=== PATIENT | female | born 1945 | race Hispanic/Latino ===

== ENCOUNTER 2018-01-25 21:29 | Inpatient (IN) | payer OTHER ==
--- OUTSIDE RECORDS SUMMARY | 2018-01-25 21:31 | XMS REPORT | Clinical Summary ---
:1945 Author Organization [facility] Address [address] [place] [address] Care Team Providers Name Role Phone Olivier Dent MD Primary Care Provider Allergies Active Allergy Reactions Severity Noted Date Comments Morphine Other (See Comments) 12/21/2015 Hallucinations; 'very aggressive' Medications Medication Sig Dispensed Refills Start Date End Date Status omeprazole (PriLOSEC) Take 20 mg by 0 Active 20 MG capsule mouth daily. losartan (COZAAR) 25 MG Take 25 mg by 0 Active tablet mouth every morning. carvedilol (COREG) 25 Take 25 mg by 0 Active MG tablet mouth 2 (two) times a day. citalopram (CeleXA) 20 Take 20 mg by 0 Active MG tablet mouth every morning. doxepin (SINEquan) 10 Take 10 mg by 0 Active MG capsule mouth nightly as needed for sleep. acetaminophen (TYLENOL) Take 325 mg by 0 Active 325 MG tablet mouth every 6 (six) hours as needed for mild pain. psyllium seed, sugar, Take 1 Dose by 0 Active (METAMUCIL, SUGAR,) mouth daily. 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 Last Filed Vital Signs Not on file Plan of Treatment Health Maintenance Due Date Last Done Comments BREAST CANCER SCREENING 1994 SHINGRIX VACCINE (1 of 2) 1994 ZOSTER VACCINE 2004 PNEUMOCOCCAL POLYSACCHARIDE VACCINE AGE 65 AND OVER 2009 INFLUENZA VACCINE 09/19/2017 COLON CANCER SCREENING 10/05/2024 10/05/2014 PNEUMOCOCCAL-13 Completed 2015 Procedures Procedure Name Priority Date/Time Associated Diagnosis Comments TRANSFUSE RED BLOOD Routine 10/24/2017 5:25 PM CDT CELLS TRANSFUSE RED BLOOD Routine 10/24/2017 5:25 PM CDT CELLS after 01/24/2017 Results Transfuse RBC (10/24/2017 5:25 PM CDT)Only the most recent of2 resultswithin the time period is included.after 01/24/2017 Insurance Payer Benefit Plan / Group Subscriber ID Type Phone Address MEDICARE MEDICARE PART A AND B xxxxxxxxxx Medicare [place], [place] AETNA [facility] INS CO OF xxxxxxxxxx [id number]
[2018-01-25] MEDS ORDERED: ONDANSETRON 4 MG/2 ML VIAL ONE (23:26)
[2018-01-25] MEDS ORDERED: FENTANYL CITR 100 MCG/2 ML ONE (23:26)
[2018-01-25] MEDS ORDERED: PANTOPRAZOLE 40 MG INJ ONE (23:26)
[2018-01-25] MEDS ORDERED: NA CHLORIDE 0.9% 1,000 ML ONE (23:26)
[2018-01-25 23:35] LABS: Urine Blood 2+ (NEG); Urine Glucose NEGATIVE (NEG); Urine Protein 2+ (NEG); Urine Specific Gravity 1.025 (1.005-1.030)
[2018-01-25 23:53] LABS: Absolute Lymphocytes (CBC) 1.5 K/uL (0.7-4.9); Absolute Monocytes 0.4 K/uL (0.1-1.3); Absolute Neutrophil 5.7 K/uL (1.8-8.0); Basophils % 0.3 % (0-1.3); Eosinophils % 0.2 % (0-4.4); Hematocrit 38.2 % (36.0-45.0); Lymphocytes % 19.8 % (15.3-44.8); MCH 28.3 pg (27.0-35.0); MCV 84.6 fL (80-100); Monocytes % 4.6 % (3.3-12.3); RBC Red Blood Cell Count 4.51 M/uL (3.86-4.86)
[2018-01-25 23:56] LABS: Urine Bacteria <20 /HPF (<20); Urine Culture Reflex Order REFLEXED
[2018-01-26 00:02] LABS: Albumin 3.6 g/dL (3.4-5.0); Bilirubin Direct 0.2 mg/dL (0-0.2); Bilirubin Total 0.6 mg/dL (0.2-1.0); Magnesium 2.1 mg/dL (1.8-2.4); Potassium 3.5 mmol/L (3.5-5.1); Protein, Total 7.5 g/dL (6.4-8.2); Troponin I 0.03 ng/mL (0.0-0.045)
[2018-01-26] MEDS ORDERED: CIPROFLOXACIN 400mg IV 400 MG/200 ML BAG IV ONE (01:54)
[2018-01-26] MEDS ORDERED: METRONIDAZOLE 500mg IVPB 500 MG/100 ML BAG IV ONE (01:54)
--- NOTE | 2018-01-26 02:39 | ER ---
Nurse's Notes [facility] Name: Mireya Pike Age: 72 yrs Sex: Female : 1945 Arrival Date: 01/25/2018 Time: 21:32 Bed 19 Private MD: Diagnosis: Small bowel obstruction;Nausea and vomiting Presentation: 01/25 21:34 Presenting complaint: Child states: RLQ abdominal pain, vomiting since this morning. aj1 Patient's daughter states "She has a history of intestine rupture, she got well, kept getting blockages. Eventually they had to put a bag on her, but then after a year everything healed inside and they reversed it. Every now and again she gets that blockage though" Patient states that the pain feels the same as her previous obstructions. Transition of care: patient was not received from another setting of care. Onset of symptoms was January 25, 2018. Risk Assessment: Do you want to hurt yourself or someone else? Patient reports no desire to harm self or others. Initial Sepsis Screen: Does the patient meet any 2 criteria? No. Patient's initial sepsis screen is negative. Does the patient have a suspected source of infection? Yes: Acute abdominal pain. Care prior to arrival: None. 21:34 Method Of Arrival: Wheelchair aj1 21:34 Acuity: TERESE 3 aj1 Triage Assessment: 21:43 General: Appears in no apparent distress. uncomfortable, Behavior is calm, cooperative, aj1 appropriate for age. Pain: Complains of pain in abdomen Pain currently is 8 out of 10 on a pain scale. Neuro: Level of Consciousness is awake, alert, obeys commands. Cardiovascular: Patient's skin is warm and dry. Respiratory: Airway is patent Respiratory effort is even, unlabored, Respiratory pattern is regular, symmetrical. GI: Reports lower abdominal pain. Historical: - Allergies: 21:43 Morphine; aj1 - Home Meds: 21:43 Breo Ellipta 200-25 mcg/dose inhalation dsdv 1 puff once daily [Active]; omeprazole 20 aj1 mg Oral cpDR 1 cap once daily [Active]; carvedilol 25 mg Oral tab 1 tab 2 times per day [Active]; losartan 25 mg Oral tab 1 tab once daily [Active]; Myrbetriq 25 mg Oral Tb24 1 tab once daily [Active]; Albuterol Inhl [Active]; Xarelto 15 mg oral tab daily [Active]; - PMHx: 21:43 Anxiety; Arthritis; GERD; High Cholesterol; Hypertension; incontinence; bowel aj1 obstruction; - PSHx: 21:43 Colostomy; colostomy reversal; bladder mesh removal; Hernia repair; Hysterectomy; aj1 - Immunization history:: Flu vaccine is up to date. - Social history:: Smoking status: Patient/guardian denies using tobacco. - Ebola Screening: : Patient denies travel to an Ebola-affected area in the 21 days before illness onset. Screenin:54 Abuse screen: Denies threats or abuse. Nutritional screening: No deficits noted. jd3 Tuberculosis screening: No symptoms or risk factors identified. Fall Risk Ambulatory Aid- None/Bed Rest/Nurse Assist (0 pts). Gait- Normal/Bed Rest/Wheelchair (0 pts) Mental Status- Oriented to own ability (0 pts). Total Hinson Fall Scale indicates No Risk (0-24 pts). Assessment: 21:55 General: Appears in no apparent distress. uncomfortable, Behavior is calm, cooperative, jd3 appropriate for age. Pain: Complains of pain in left lower quadrant Quality of pain is described as sharp, tender. Neuro: Level of Consciousness is awake, alert, obeys commands, Oriented to person, place, time, situation, Appropriate for age. Cardiovascular: Capillary refill < 3 seconds Patient's skin is warm and dry. Respiratory: Airway is patent Respiratory effort is even, unlabored, Respiratory pattern is regular, symmetrical. GI: Abdomen is round Bowel sounds present in right upper quadrant, left upper quadrant and right lower quadrant hypoactive in left lower quadrant Abd is soft Abdomen is tender to palpation in left lower quadrant Reports nausea, vomiting. : No signs and/or symptoms were reported regarding the genitourinary system. EENT: No signs and/or symptoms were reported regarding the EENT system. Derm: Skin is intact, Skin is dry, Skin is normal, Skin temperature is warm. Musculoskeletal: Circulation, motion, and sensation intact. Range of motion: intact in all extremities. 23:28 Reassessment: Patient appears in no apparent distress at this time. Patient and/or jd3 family updated on plan of care and expected duration. Pain level reassessed. Patient is alert, oriented x 3, equal unlabored respirations, skin warm/dry/pink. 12/08 00:42 Reassessment: Patient appears in no apparent distress at this time. Patient and/or jd3 family updated on plan of care and expected duration. Pain level reassessed. Patient is alert, oriented x 3, equal unlabored respirations, skin warm/dry/pink. 01:30 Reassessment: Patient appears in no apparent distress at this time. Patient and/or jd3 family updated on plan of care and expected duration. Pain level reassessed. Patient is alert, oriented x 3, equal unlabored respirations, skin warm/dry/pink. 02:16 Reassessment: Shanae leyva- [phone]. Reassessment: Patient appears jd3 in no apparent distress at this time. Patient and/or family updated on plan of care and expected duration. Pain level reassessed. Patient is alert, oriented x 3, equal unlabored respirations, skin warm/dry/pink. Vital Signs: 01/25 21:43 BP 160 / 73; Pulse 81; Resp 18; Temp 97.3(TE); Pulse Ox 97% on R/A; Weight 80.74 kg aj1 (R); Height 5 ft. 0 in. (152.40 cm) (R); 23:28 BP 164 / 72; Pulse 64; Resp 18 S; Pulse Ox 96% on R/A; jd3 01/26 00:43 BP 136 / 79; Pulse 67; Resp 18 S; Pulse Ox 98% on R/A; Pain 0/10; jd3 02:17 Pulse 66; Resp 18 S; Pulse Ox 98% on R/A; jd3 03:44 BP 138 / 82; Pulse 66; Resp 18 S; Pulse Ox 96% on R/A; jd3 01/25 21:43 Body Mass Index 34.76 (80.74 kg, 152.40 cm) aj1 ED Course: 01/25 21:32 Patient arrived in ED. ag3 21:36 Triage completed. aj1 21:43 Arm band placed on Patient placed in an exam room. aj1 21:54 Martell Casas, RN is Primary Nurse. jd3 21:57 Patient has correct armband on for positive identification. Bed in low position. Call [facility] light in reach. Side rails up X 1. Adult w/ patient. 22:22 Luc Rose PA is PHCP. cp 22:23 Rosales Dsouza MD is Attending Physician. cp 23:00 Urine collected: clean catch specimen, clear, mj colored, Amount Voided: 60mL. jp3 23:15 Inserted saline lock: 20 gauge in right upper arm, using aseptic technique. Blood jp3 collected. 23:15 Initial lab(s) drawn, by me, sent to lab. jp3 23:20 X-ray completed. Portable x-ray completed in exam room. Patient tolerated procedure sg4 well. 23:22 XRAY Chest (1 view) In Process Unspecified. EDMS 23:25 Urine Microscopic Only Sent. jp3 23:25 Magnesium Sent. jp3 23:25 Basic Metabolic Panel Sent. jp3 23:25 CBC with Diff Sent. jp3 23:25 Creatinine for Radiology Sent. jp3 23:25 Lipase Sent. jp3 23:25 Hepatic Function Sent. jp3 23:32 EKG done, by ED staff, reviewed by Luc ADAM. jp3 12 00:[address] via stretcher. kw1 00:39 CT Abd/Pelvis - W/Contrast In Process Unspecified. EDMS 00:40 CT completed. Patient tolerated procedure well. Patient moved back from CT. kw1 02:15 No provider procedures requiring assistance completed. NGT: inserted 16 Fr. via right jd3 nare. verified placement of air over stomach, verified return of gastric contents, to intermittent suction. Returned gastric contents. Patient tolerated well. 02:35 Olivier Dent MD is Hospitalizing Provider. cp 03:42 Patient admitted, IV remains in place. jd3 Administered Medications: 01/25 23:26 Drug: NS 0.9% 1000 ml Route: IV; Rate: 75 ml/hr; Site: right upper arm; jd3 01/26 03:43 Follow up: Response: No adverse reaction; IV Status: Infusion continued upon admission jd3 01/25 23:27 Drug: Zofran 4 mg Route: IVP; Site: right upper arm; jd3 01/26 01:48 Follow up: Response: No adverse reaction jd3 01/25 23:27 Drug: ProTONIX 40 mg Route: IVP; Site: right upper arm; jd3 01/26 01:48 Follow up: Response: No adverse reaction jd3 01/25 23:27 Drug: fentaNYL (PF) 50 mcg Route: IVP; Site: right upper arm; jd3 01/26 01:47 Follow up: Response: No adverse reaction; Pain is decreased jd3 02:14 Drug: metroNIDAZOLE 500 mg Volume: 100 ml; Route: IVPB; Infused Over: 30 mins; Site: j right upper arm; 03:43 Follow up: Response: No adverse reaction; IV Status: Completed infusion jd3 02:15 Drug: Cipro 400 mg Volume: 200 ml; Route: IVPB; Infused Over: 60 mins; Site: right jd3 upper arm; 03:43 Follow up: Response: No adverse reaction; IV Status: Completed infusion jd3 Output: 01:47 Urine: NaNml; Total: NaNml. jd3 Outcome: 02:38 Decision to Hospitalize by Provider. cp 03:42 Admitted to Med/surg accompanied by nurse, via stretcher, room 216, with chart, Report jd3 called to Odalys BERNSTEIN 03:42 Condition: stable 03:42 Instructed on the need for admit, Demonstrated understanding of instructions. 03:48 Patient left the ED. jd3 Signatures: Dispatcher [employer] EDKristi Starr, RN RN aj1 Luc Rose PA PA cp Davies, Jonathon RN RN jd3 Ava Dominguez1 Shai Laguna jp3 Denise Mendiola3 Antonella Long sg4 Corrections: (The following items were deleted from the chart) 01/25 23:35 23:25 TROPONIN I+C.LAB.BRZ drawn and sent. 3 EDSC 01/26 01:24 00:43 BP 136 / 79; Pulse 67bpm; Resp 18bpm; Spontaneous; Pulse Ox 98% RA; jd3 jd3
--- NOTE | 2018-01-26 02:39 | EDPHYS ---
Physician Documentation [facility] Name: Mireya Pike Age: 72 yrs Sex: Female : 1945 Arrival Date: 01/25/2018 Time: 21:32 Bed 19 Private MD: ED Physician Rosales Dsouza HPI: 01/25 23:00 This 72 yrs old Female presents to ER via Wheelchair with complaints of cp Abdominal Pain. 23:00 The patient presents with abdominal pain. Onset: The symptoms/episode began/occurred cp today. Associated signs and symptoms: Pertinent positives: nausea and vomiting, Pertinent negatives: blood in stools, chest pain, constipation, diarrhea, fever, shortness of breath, vomiting blood. The symptoms are described as constant. The patient has experienced similar episodes in the past, several times, today's symptoms are similar, to when the patient was apparently diagnosed with bowel obstruction. Historical: - Allergies: 21:43 Morphine; aj1 - Home Meds: 21:43 Breo Ellipta 200-25 mcg/dose inhalation dsdv 1 puff once daily [Active]; omeprazole 20 aj1 mg Oral cpDR 1 cap once daily [Active]; carvedilol 25 mg Oral tab 1 tab 2 times per day [Active]; losartan 25 mg Oral tab 1 tab once daily [Active]; Myrbetriq 25 mg Oral Tb24 1 tab once daily [Active]; Albuterol Inhl [Active]; Xarelto 15 mg oral tab daily [Active]; - PMHx: 21:43 Anxiety; Arthritis; GERD; High Cholesterol; Hypertension; incontinence; bowel aj1 obstruction; - PSHx: 21:43 Colostomy; colostomy reversal; bladder mesh removal; Hernia repair; Hysterectomy; aj1 - Immunization history:: Flu vaccine is up to date. - Social history:: Smoking status: Patient/guardian denies using tobacco. - Ebola Screening: : Patient denies travel to an Ebola-affected area in the 21 days before illness onset. ROS: 23:05 Constitutional: Negative for body aches, chills, fever, poor PO intake. cp 23:05 Eyes: Negative for injury, pain, redness, and discharge. cp 23:05 ENT: Negative for drainage from ear(s), ear pain, sore throat, difficulty swallowing, difficulty handling secretions. 23:05 Cardiovascular: Negative for chest pain, edema, palpitations. 23:05 Respiratory: Negative for cough, shortness of breath, wheezing. 23:05 Abdomen/GI: Positive for abdominal pain, nausea and vomiting, Negative for diarrhea, constipation, hematemesis, black/tarry stool, rectal bleeding. 23:05 Back: Negative for radiated pain. 23:05 : Negative for urinary symptoms. 23:05 Skin: Negative for cellulitis, rash. 23:05 Neuro: Negative for altered mental status, headache, weakness. 23:05 All other systems are negative. Exam: 23:12 Constitutional: The patient appears in no acute distress, alert, awake, cp non-diaphoretic, non-toxic, well developed, well nourished, uncomfortable. 23:12 Head/Face: Normocephalic, atraumatic. Eyes: Pupils equal round and reactive to light, cp extra-ocular motions intact. Lids and lashes normal. Conjunctiva and sclera are non-icteric and not injected. Cornea within normal limits. Periorbital areas with no swelling, redness, or edema. ENT: Nares patent. No nasal discharge, no septal abnormalities noted. Tympanic membranes are normal and external auditory canals are clear. Oropharynx with no redness, swelling, or masses, exudates, or evidence of obstruction, uvula midline. Mucous membranes moist. Chest/axilla: Normal chest wall appearance and motion. Nontender with no deformity. No lesions are appreciated. 23:12 Cardiovascular: Rate: normal, Rhythm: regular, Heart sounds: murmur, not appreciated, rub, not appreciated, gallop, not appreciated, Edema: is not appreciated, JVD: is not appreciated. 23:12 Respiratory: the patient does not display signs of respiratory distress, Respirations: normal, no use of accessory muscles, no retractions, no splinting, no tachypnea, labored breathing, is not present, Breath sounds: are clear throughout, no decreased breath sounds, no stridor, no wheezing. 23:12 Abdomen/GI: Inspection: scar(s), Bowel sounds: active, all quadrants, Palpation: soft, in all quadrants, moderate abdominal tenderness, in the left lower quadrant, rebound tenderness, is not appreciated, voluntary guarding, is elicited in the left lower quadrant. 23:12 Back: pain, is absent, ROM is normal. 23:12 Skin: cellulitis, is not appreciated, no rash present. 23:12 Neuro: Orientation: to person, place \T\ time. Mentation: is normal, Cerebellar function: is grossly normal, Motor: moves all fours, strength is normal, Sensation: is normal. 23:35 ECG was reviewed by the Attending Physician. Vital Signs: 21:43 BP 160 / 73; Pulse 81; Resp 18; Temp 97.3(TE); Pulse Ox 97% on R/A; Weight 80.74 kg aj1 (R); Height 5 ft. 0 in. (152.40 cm) (R); 23:28 BP 164 / 72; Pulse 64; Resp 18 S; Pulse Ox 96% on R/A; jd3 01/26 00:43 BP 136 / 79; Pulse 67; Resp 18 S; Pulse Ox 98% on R/A; Pain 0/10; jd3 02:17 Pulse 66; Resp 18 S; Pulse Ox 98% on R/A; jd3 03:44 BP 138 / 82; Pulse 66; Resp 18 S; Pulse Ox 96% on R/A; jd3 01/25 21:43 Body Mass Index 34.76 (80.74 kg, 152.40 cm) aj1 MDM: 01/25 22:26 Patient medically screened. 01/26 00:00 Differential diagnosis: bowel obstruction, diverticulitis, gastritis, pancreatitis, cp Pyelonephritis, Ureterolithiasis, urinary tract infection. 01:34 Data reviewed: vital signs, nurses notes, lab test result(s), EKG, radiologic studies, cp CT scan. Physician consultation: Stas Agustin MD was called at 01:34, left message on voicemail. 02:00 Response to treatment: the patient's symptoms have markedly improved after treatment. cp 02:33 Physician consultation: Stas Agustin MD was called at 02:33, left message on voicemail.cp 01/25 23:02 Order name: Basic Metabolic Panel; Complete Time: 00:53 cp 01/26 00:53 Interpretation: Normal except: GLUC 130; GFR 49. cp 01/25 23:02 Order name: CBC with Diff; Complete Time: 00:53 cp 01/26 00:53 Interpretation: Normal except: MPV 7.0; PASHA% 75.1. cp 01/25 23:02 Order name: Creatinine for Radiology; Complete Time: 00:53 cp 01/25 23:02 Order name: Hepatic Function; Complete Time: 00:53 cp 01/25 23:02 Order name: Lipase; Complete Time: 00:53 cp 01/25 23:02 Order name: Magnesium; Complete Time: 00:53 cp 01/25 23:04 Order name: Urine Microscopic Only; Complete Time: 00:53 cp 01/26 00:54 Interpretation: Normal except: UWBC 20-50; URBC 10-20. cp 01/25 23:26 Order name: Urine Dipstick--Ancillary (enter results); Complete Time: 00:53 ar5 01/25 23:36 Order name: Troponin I; Complete Time: 00:53 EDMS 01/25 23:56 Order name: Urine Culture EDIA 01/26 02:45 Order name: Basic Metabolic Panel EDMS 01/26 02:45 Order name: Basic Metabolic Panel EDIA 01/26 02:45 Order name: CBC with Automated Diff EDMS 01/25 23:02 Order name: EKG; Complete Time: 23:03 cp 01/25 23:02 Order name: XRAY Chest (1 view) cp 01/25 23:02 Order name: CT Abd/Pelvis - W/Contrast cp 01/26 02:45 Order name: CONS Physician Consult EDIA 01/26 02:45 Order name: NPO EDIA 01/26 02:45 Order name: CBC with Automated Diff EDMS 01/26 02:45 Order name: Lipase EDIA 01/26 02:45 Order name: Lipase EDMS 01/26 02:45 Order name: Liver (Hepatic) Function EDMS 01/26 02:45 Order name: Liver (Hepatic) Function EDMS 01/25 23:02 Order name: IV Saline Lock; Complete Time: 23:25 cp 01/25 23:02 Order name: Labs collected and sent; Complete Time: 23:25 cp 01/25 23:02 Order name: EKG - Nurse/Tech; Complete Time: 23:25 cp 01/25 23:04 Order name: Urine Dipstick-Ancillary (obtain specimen); Complete Time: 23:25 cp 01/26 01:31 Order name: NG Tube; Complete Time: 02:14 cp 01/26 01:34 Order name: NPO; Complete Time: 01:47 cp EC/07 23:35 Rate is 74 beats/min. Rhythm is regular. WI interval is normal. QRS interval is cp prolonged at 138 msec. QT interval is normal. T waves are Inverted in lead aVL. Interpreted by me. Reviewed by me. Administered Medications: 23:26 Drug: NS 0.9% 1000 ml Route: IV; Rate: 75 ml/hr; Site: right upper arm; [facility] 01/26 03:43 Follow up: Response: No adverse reaction; IV Status: Infusion continued upon admission [facility] 01/25 23:27 Drug: Zofran 4 mg Route: IVP; Site: right upper arm; [facility] 01/26 01:48 Follow up: Response: No adverse reaction [facility] 01/25 23:27 Drug: ProTONIX 40 mg Route: IVP; Site: right upper arm; [facility] 01/26 01:48 Follow up: Response: No adverse reaction [facility] 01/25 23:27 Drug: fentaNYL (PF) 50 mcg Route: IVP; Site: right upper arm; [facility] 01/26 01:47 Follow up: Response: No adverse reaction; Pain is decreased jd3 02:14 Drug: metroNIDAZOLE 500 mg Volume: 100 ml; Route: IVPB; Infused Over: 30 mins; Site: [facility] right upper arm; 03:43 Follow up: Response: No adverse reaction; IV Status: Completed infusion jd3 02:15 Drug: Cipro 400 mg Volume: 200 ml; Route: IVPB; Infused Over: 60 mins; Site: right [facility] upper arm; 03:43 Follow up: Response: No adverse reaction; IV Status: Completed infusion j Disposition: 06:23 Co-signature as Attending Physician, Rosales Dsouza MD Available for consultation at ps1 all times. . Disposition: 01/26/18 02:38 Hospitalization ordered by Olivier Dent for Inpatient Admission. Preliminary diagnosis are Small bowel obstruction, Nausea and vomiting. - Bed requested for Telemetry/MedSurg (Inpatient). - Status is Inpatient Admission. jd3 - Condition is Stable. - Problem is new. - Symptoms have improved. UTI on Admission? No Signatures: Dispatcher [employer] EDMS Kristi Akins RN RN aj1 Faiza Jarrell RN RN mw Page, Corey, PA PA cp Davies, Jonathon, RN RN jd3 Singer, Phillip, MD MD ps1 Corrections: (The following items were deleted from the chart) 01/25 23:35 23:04 TROPONIN I+C.LAB.BRZ ordered. EDIA EDIA 01/26 03:00 02:38 Hospitalization Ordered by Olivier Dent MD for Inpatient Admission. Preliminary mw diagnosis is Small bowel obstruction; Nausea and vomiting. Bed requested for Telemetry/MedSurg (Inpatient). Status is Inpatient Admission. Condition is Stable. Problem is new. Symptoms have improved. UTI on Admission? No. cp 03:48 03:00 01/26/2018 02:38 Hospitalization Ordered by Olivier Dent MD for Inpatient jd3 Admission. Preliminary diagnosis is Small bowel obstruction; Nausea and vomiting. Bed requested for Telemetry/MedSurg (Inpatient). Status is Inpatient Admission. Condition is Stable. Problem is new. Symptoms have improved. UTI on Admission? No. mw
[2018-01-26] MEDS ORDERED: ONDANSETRON 4 MG/2 ML VIAL IV PRN (02:41)
[2018-01-26] MEDS: D5 0.45 NS 1,000 ML IV SCH ×3 (04:31→21:17)
[2018-01-26 05:15] VITALS: BMI 34.7
[2018-01-26] MEDS ORDERED: METRONIDAZOLE 500mg IVPB 500 MG/100 ML BAG IV SCH (09:00)
--- NOTE | 2018-01-26 09:28 | RAD REPORT ---
EXAM DESCRIPTION: CT - Abdomen Pelvis W Contrast - 01/26/2018 6:36 am CLINICAL HISTORY: Abdominal pain/right lower quadrant pain with vomiting COMPARISON: September 2016 TECHNIQUE: Computed axial tomography of the abdomen pelvis was obtained. 100 cc Isovue-300 was admin istered intravenously. Oral contrast was not requested which limits evaluation of bowel.Preliminary r eport was generated by [email or web address] and reviewed prior to dictation All CT scans are performed using dose optimization technique as appropriate and may include automated exposure control or mA/KV adjustment according to patient size. FINDINGS: The liver, spleen, pancreas, adrenal and kidneys appear unremarkable. Prior resection of portions of large and small bowel. Proximal and mid small bowel mildly to moderate ly dilated with decompression of distal small bowel. Several ventral hernias contain bowel. No free a ir noted. An abscess is not seen A moderate hiatal hernia IMPRESSION: Small bowel obstruction. The obstruction may be secondary to a loop of small bowel withi n a ventral hernia. An adhesion is another consideration
--- NOTE | 2018-01-26 09:30 | RAD REPORT ---
EXAM DESCRIPTION: [place] Single View01/25/2018 11:21 pm CLINICAL HISTORY: Abdominal pain COMPARISON: September 2017 FINDINGS: The lungs appear clear of acute infiltrate. The heart is normal size. A moderate hiatal h ernia IMPRESSION: No acute abnormalities displayed
--- NOTE | 2018-01-26 10:56 | P.HP ---
Certification for Inpatient Patient admitted to: Inpatient With expected LOS: >2 Midnights Practitioner: I am a practitioner with admitting privileges, knowledge of patient current condition, hospital course, and medical plan of care. Services: Services provided to patient in accordance with Admission requirements found in Title 42 Section 412.3 of the Code of Federal Regulations Patient History Date of Service: 01/26/18 Reason for admission: ABDOMEN PAIN, NAUSEA AND VOMITINGFOR ONE DAY. History of Present Illness: HAS EXTENSIVE HISTORY OF RECURRENT BOWEL OBSTRUCTIONS SINCE SHE HAD COLONOSCOPY INDUCED PERFORATION YEARS AGO. SINCE THEN SHE HAS HAD COLOSTOMY FOR YEARS BUT ABOUT TWO YEARS AGO IT WAS REVERSED. SINCE THEN THIS IS SECOND BOWEL OBSTRUCTION. SHE USUALLY GOES TO [facility] IN [facility] FOR HER SURGICAL AND GI CARE. SHE DOES NOT HAVE ANY KNOWN CARDIAC ISSUES. SHE WAS IN USUAL STATE OF HEALTH UNTIL YESTERDAY AND STARTED HAVING ABDOMEN PAIN, NAUSEA AND VOMITING. NOW WITH NGT SHE IS DOING A LOT BETTER AND IS VERY COMFORTABLE. Allergies morphine Allergy (Verified 01/26/18 04:36) combative Home Medications: Carvedilol [Coreg*] 25 mg PO BID 01/30/16 Citalopram [Celexa*] 20 mg PO DAILY 01/30/16 Doxepin HCl [Sinequan*] 10 mg PO BEDTIME PRN 01/30/16 Losartan Potassium [Cozaar] 25 mg PO DAILY 01/30/16 Omeprazole 20 mg PO DAILY 01/30/16 - Past Medical/Surgical History Has patient received pneumonia vaccine in the past: Yes Diabetic: No -: HTN -: anxiety -: diverticulitis -: arthiritis -: acid reflux -: rupture of large intestine -: bladder mesh -: hernia repair -: hysterectomy -: colostomy -: colostomy reversal - Family History Father -: Hypertension, Diabetes Mother -: Hypertension, Diabetes - Social History Smoking Status: Former smoker Alcohol use: Yes CD- Drugs: No Caffeine use: Yes Place of Residence: Home Review of Systems 10-point ROS is otherwise unremarkable General: Weakness, Malaise Gastrointestinal: Vomiting, No Distention (WITH NGT AND LIS) Physical Examination - Vital Signs Temperature: 97.4 F Blood Pressure: 176/75 Pulse: 86 Respirations: 16 Pulse Ox (%): 97 - Physical Exam General: Alert, Mild distress (NGT AND LIS) HEENT: Atraumatic, PERRLA, Mucous membr. moist/pink, EOMI, Sclerae nonicteric Neck: Supple, 2+ carotid pulse no bruit, No LAD, Without JVD or thyroid abnormality Respiratory: Clear to auscultation bilaterally, Normal air movement Cardiovascular: Regular rate/rhythm, Normal S1 S2 Gastrointestinal: Hypoactive, No tenderness Musculoskeletal: No tenderness Integumentary: No rashes Neurological: Normal gait, Normal speech, Normal strength at 5/5 x4 extr, Normal tone, Normal affect Lymphatics: No axilla or inguinal lymphadenopathy - Studies Laboratory Data (last 24 hrs) 01/25/18 22:15: Troponin I Cancelled 01/25/18 22:15: Creatinine 1.00 01/25/18 22:15: WBC 7.6, Hgb 12.8, Hct 38.2, Plt Count 203 01/25/18 22:15: Sodium 140, Potassium 3.5, BUN 17, Creatinine 1.10, Glucose 130 H, Magnesium 2.1, Total Bilirubin 0.6, AST 14 L, ALT 18, Alkaline Phosphatase 89 , Troponin I 0.03, Lipase 104 Assessment and Plan - Problems (Diagnosis) (1) SBO (small bowel obstruction) Onset Date: 10/16/16 Current Visit: No Status: Acute Plan: RECURRENT ISSUE NGT WITH LIS MAY IMPROVE IT WITHOUT SURGERY. SURGERY IF NEED. WILL TALK TO DAUGHTER. SHE IS NOT AT BESIDE. STABLE FOR NOW. - Advance Directives Does patient have a Living Will: No Does patient have a Durable POA for Healthcare: No
[2018-01-26] MEDS: ACETAMINOPHEN 500 MG TAB PO PRN ×2 (13:13→21:09)
[2018-01-26] MEDS ORDERED: CIPROFLOXACIN 400mg IV 400 MG/200 ML BAG IV SCH (14:00)
--- NOTE | 2018-01-26 15:31 | RAD REPORT ---
EXAM DESCRIPTION: RAD - Abdomen 1 View (KUB) - 01/26/2018 2:59 pm CLINICAL HISTORY: Abdomen pain. FINDINGS: A nasogastric tube is present within the distal stomach. Small bowel caliber has diminished. Couple of mildly dilated small bowel loops persist. Overall mild improvement in the small bowel obstruction
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
[2018-01-26] MEDS ORDERED: cloNIDine HCl 0.1 MG TAB PO ONE (22:30)
[2018-01-27] MEDS: TRAMADOL HCL 50 MG TAB PO PRN (02:20)
[2018-01-27 05:10] LABS: Absolute Lymphocytes (CBC) 1.5 K/uL (0.7-4.9); Absolute Monocytes 0.4 K/uL (0.1-1.3); Absolute Neutrophil 2.5 K/uL (1.8-8.0); Basophils % 0.4 % (0-1.3); Eosinophils % 1.4 % (0-4.4); Lymphocytes % 34.6 % (15.3-44.8); MCH 28.4 pg (27.0-35.0); MPV 7.1 fL (7.6-11.3); RBC Red Blood Cell Count 4.16 M/uL (3.86-4.86)
[2018-01-27 05:23] LABS: Bilirubin Direct 0.1 mg/dL (0-0.2); Bilirubin Total 0.6 mg/dL (0.2-1.0); Potassium 3.2 mmol/L (3.5-5.1); Protein, Total 6.2 g/dL (6.4-8.2)
[2018-01-27] MEDS: KCL 20 MEQ/100 mL IVPB 20 MEQ/100 ML BAG IV SCH ×2 (10:00→12:43)
[2018-01-27] MEDS: D5 0.45 NS 1,000 ML IV SCH ×2 (10:40→20:04)
--- NOTE | 2018-01-27 11:18 | P.PN ---
Subjective Date of Service: 01/27/18 Chief Complaint: ABDOMEN PAIN, NAUSEA AND VOMITINGFOR ONE DAY. Subjective: Improving (SHE IS PASSING GAS NOW FROM BELOW. NO BM YET) Review of Systems 10-point ROS is otherwise unremarkable Physical Examination - Vital Signs Temperature: 97.0 F Blood Pressure: 175/83 Pulse: 89 Respirations: 17 Pulse Ox (%): 94 - Physical Exam General: Alert, In no apparent distress HEENT: Atraumatic, PERRLA, EOMI Neck: Supple, JVD not distended Respiratory: Clear to auscultation bilaterally, Normal air movement Cardiovascular: Regular rate/rhythm, Normal S1 S2 Gastrointestinal: Normal bowel sounds, No tenderness Musculoskeletal: No tenderness Integumentary: No rashes Neurological: Normal speech, Normal tone, Normal affect Lymphatics: No axilla or inguinal lymphadenopathy - Studies Medications List Reviewed: Yes Assessment And Plan - Current Problems (Diagnosis) (1) SBO (small bowel obstruction) Onset Date: 10/16/16 Current Visit: No Status: Acute Plan: RECURRENT ISSUE NGT WITH LIS MAY IMPROVE IT WITHOUT SURGERY. SURGERY IF NEED. WILL TALK TO DAUGHTER. SHE IS NOT AT BESIDE. STABLE FOR NOW. DR. ANDREW ON CASE DAILY X RAY ORDER GIVEN YESTERDAY. (2) Hypertension Current Visit: No Status: Acute Plan: IV LOPRESSOR. Qualifiers: Hypertension type: essential hypertension Qualified Code(s): I10 - Essential (primary) hypertension (3) Hypokalemia Current Visit: Yes Status: Acute Plan: K REP PROTOCOL.
[2018-01-27] MEDS: METOPROLOL TARTRATE 5 MG/5 ML INJ IV SCH ×2 (12:43→17:53)
[2018-01-27] MEDS: ACETAMINOPHEN 500 MG TAB PO PRN (14:57)
[2018-01-27] MEDS: ENOXAPARIN 30 MG/0.3 ML SQ SCH (20:04)
[2018-01-28] MEDS: METOPROLOL TARTRATE 5 MG/5 ML INJ IV SCH ×5 (00:02→20:47)
[2018-01-28] MEDS: ACETAMINOPHEN 500 MG TAB PO PRN ×2 (04:32→10:05)
[2018-01-28 05:59] LABS: Potassium 3.4 mmol/L (3.5-5.1)
[2018-01-28] MEDS: KCL 20 MEQ/100 mL IVPB 20 MEQ/100 ML BAG IV SCH ×2 (06:22→10:05)
--- NOTE | 2018-01-28 07:15 | EKG ---
Test Date: 2018-01-25 Test Time: 23:28:44 Spearer: MEASUREMENT RESULTS: Intervals: Rate: 74 LA: 148 QRSD: 138 QT: 464 QTc: 515 Wright: P: 49 LA: 148 QRS: 12 T: 135 INTERPRETIVE STATEMENTS: Normal sinus rhythm Possible Left atrial enlargement Left bundle branch block Abnormal ECG Compared to ECG 01/30/2016 06:19:09 Left bundle-branch block now present Sinus tachycardia no longer present Electronically Signed On 01-28-18 07:11:24 SUPERVISOR [employer] by Emile Hurley
[2018-01-28] MEDS: D5 0.45 NS 1,000 ML IV SCH ×2 (08:20→20:45)
[2018-01-28] MEDS: ENOXAPARIN 30 MG/0.3 ML SQ SCH (10:05)
[2018-01-28] MEDS: TRAMADOL HCL 50 MG TAB PO PRN (12:32)
--- NOTE | 2018-01-28 15:08 | RAD REPORT ---
EXAM DESCRIPTION: RAD - Abdomen 1 View (KUB) - 01/28/2018 2:53 pm CLINICAL HISTORY: Abdominal pain, abdominal distention COMPARISON: January 26 FINDINGS: NG tube remains in place in a decompressed stomach. Side port of the tubing is at the GE j unction. Large and small bowel are normal in diameter. Air and stool are present in the colon. No idania e air or pneumatosis. Numerous surgical clips are present in the upper abdomen. Disc and bony degener ative changes are present. Surgical staple lines are seen. No suspicious calcifications. IMPRESSION: No obstruction, free air or emergent finding. No dilated large or small bowel loops seen .
--- NOTE | 2018-01-28 17:28 | P.PN ---
Subjective Date of Service: 01/28/18 Chief Complaint: L SIDE KNEE PAIN. Subjective: Improving SHE HAS NO PAIN. ABDOMEN- DISTENSION LOT BETTER. NO PAIN, NO FEVER. Review of Systems 10-point ROS is otherwise unremarkable Gastrointestinal: No Distention Physical Examination - Vital Signs Temperature: 97.2 F Blood Pressure: 169/81 Pulse: 96 Respirations: 20 Pulse Ox (%): 94 - Physical Exam General: Alert, Mild distress HEENT: Atraumatic, PERRLA, EOMI Neck: Supple, JVD not distended Respiratory: Clear to auscultation bilaterally, Normal air movement Cardiovascular: Regular rate/rhythm, Normal S1 S2 Gastrointestinal: Normal bowel sounds, No tenderness Musculoskeletal: No tenderness Integumentary: No rashes Neurological: Normal speech, Normal tone, Normal affect Lymphatics: No axilla or inguinal lymphadenopathy - Studies Microbiology Data (last 24 hrs): 01/25/18 23:00 Clean Catch Urine [place] Count - Final <10,000 CFU/ML. 01/25/18 23:00 Clean Catch Urine - Final Medications List Reviewed: Yes Assessment And Plan - Current Problems (Diagnosis) (1) SBO (small bowel obstruction) Onset Date: 10/16/16 Current Visit: No Status: Acute Plan: RECURRENT ISSUE NGT WITH LIS MAY IMPROVE IT WITHOUT SURGERY. SURGERY IF NEED. WILL TALK TO DAUGHTER. SHE IS NOT AT BESIDE. STABLE FOR NOW. DR. ANDREW ON CASE DAILY X RAY ORDER GIVEN YESTERDAY. DR. ANDREW TO DO BARIUM TEST. (2) Hypertension Current Visit: No Status: Acute Plan: IV LOPRESSOR. Qualifiers: Hypertension type: essential hypertension Qualified Code(s): I10 - Essential (primary) hypertension (3) Hypokalemia Onset Date: 01/28/18 Current Visit: Yes Status: Acute Plan: K REP PROTOCOL.
--- NOTE | 2018-01-28 18:34 | RAD REPORT ---
EXAM DESCRIPTION: RAD - Small Bowel Series - 01/28/2018 2:53 pm CLINICAL HISTORY: Small bowel obstruction, abdominal pain COMPARISON: CT study January FINDINGS: Java Web Application Developer film shows a nonspecific bowel gas pattern. No obstruction or free air. No suspiciou s calcifications. NG tube is in place. Gastric size and mucosal fold pattern are normal. Moderate-size hiatal hernia is present with approxi mately 20% of the stomach intrathoracic. Mucosal fold pattern is distorted at the level of the diaphr agm. Assessment is limited at this site. No delay in transit of contrast into the small bowel. Proximal small bowel loops are distended but no t grossly dilated. Multiple small bowel loops are clustered in the mid abdomen, site of hernia on the CT study. Small bowel distal to the hernia site are decompressed. There is no evidence for delay in transit of contrast past the point of herniation and clustered bowel loops. Colon has been partially resected. Transit time to the colon is 1 hour. IMPRESSION: No small bowel obstruction. Transit time to the colon was 1 hour. Patient has a known hernia site midline anterior abdominal wall with clustered small bowel loops at t his site. Small bowel proximal to the herniation site is distended. Small bowel distal to the hernia site mostly decompressed. Contrast transit did easily across the herniation site with no obstruction or delayed transit.
[2018-01-29 00:26] VITALS: O2SAT 95
[2018-01-29] MEDS: METOPROLOL TARTRATE 5 MG/5 ML INJ IV SCH ×3 (01:26→13:45)
[2018-01-29 06:34] LABS: Magnesium 2.2 mg/dL (1.8-2.4); Phosphorus 3.3 mg/dL (2.5-4.9); Potassium 3.5 mmol/L (3.5-5.1)
[2018-01-29] MEDS ORDERED: KCL 20 MEQ/100 mL IVPB 20 MEQ/100 ML BAG IV SCH (07:00)
[2018-01-29] MEDS: ENOXAPARIN 30 MG/0.3 ML SQ SCH (09:12)
[2018-01-29] MEDS: D5 0.45 NS 1,000 ML IV SCH (10:43)
--- NOTE | 2018-01-29 17:29 | P.DS ---
Admission Date: 01/26/18 Discharge Date: 01/29/18 Disposition: ROUTINE DISCHARGE Reason for Admission: L SIDE KNEE PAIN. - Problems (1) SBO (small bowel obstruction) Onset Date: 10/16/16 Current Visit: No Status: Acute (2) Hypertension Current Visit: No Status: Acute Qualifiers: Hypertension type: essential hypertension Qualified Code(s): I10 - Essential (primary) hypertension (3) Hypokalemia Onset Date: 01/28/18 Current Visit: Yes Status: Acute Brief History of Present Illness: HAS EXTENSIVE HISTORY OF RECURRENT BOWEL OBSTRUCTIONS SINCE SHE HAD COLONOSCOPY INDUCED PERFORATION YEARS AGO. SINCE THEN SHE HAS HAD COLOSTOMY FOR YEARS BUT ABOUT TWO YEARS AGO IT WAS REVERSED. SINCE THEN THIS IS SECOND BOWEL OBSTRUCTION. SHE USUALLY GOES TO [facility] IN [facility] FOR HER SURGICAL AND GI CARE. SHE DOES NOT HAVE ANY KNOWN CARDIAC ISSUES. SHE WAS IN USUAL STATE OF HEALTH UNTIL YESTERDAY AND STARTED HAVING ABDOMEN PAIN, NAUSEA AND VOMITING. NOW WITH NGT SHE IS DOING A LOT BETTER AND IS VERY COMFORTABLE. MS CASTELLANOS IS BACK TO BASELINE. SHE IS ABLE TO TOLERATE FULL LIQUIDS. PER DR. ANDREW SHE IS READY TO GO HOME. Vital Signs/Physical Exam: Temp Pulse Resp BP Pulse Ox 97.6 F 103 H 19 174/83 H 95 01/29/18 08:00 01/29/18 08:00 01/29/18 08:00 01/29/18 08:00 01/29/18 08:00 Laboratory Data at Discharge: WBC 4.4 K/uL (4.3-10.9) D 01/27/18 04:40 Hgb 11.8 g/dL (12.0-15.0) L 01/27/18 04:40 Hct 35.0 % (36.0-45.0) L 01/27/18 04:40 Plt Count 182 K/uL (152-406) 01/27/18 04:40 Sodium 139 mmol/L (136-145) 01/29/18 05:54 Potassium 3.5 mmol/L (3.5-5.1) 01/29/18 05:54 BUN 8 mg/dL (7-18) 01/29/18 05:54 Creatinine 0.80 mg/dL (0.55-1.3) 01/29/18 05:54 Glucose 106 mg/dL (74-106) 01/29/18 05:54 Phosphorus 3.3 mg/dL (2.5-4.9) 01/29/18 05:54 Magnesium 2.2 mg/dL (1.8-2.4) 01/29/18 05:54 Total Bilirubin 0.6 mg/dL (0.2-1.0) 01/27/18 04:40 AST 12 U/L (15-37) L 01/27/18 04:40 ALT 17 U/L (12-78) 01/27/18 04:40 Alkaline Phosphatase 71 U/L (45-117) 01/27/18 04:40 Troponin I 0.03 ng/mL (0.0-0.045) 01/25/18 22:15 Lipase 104 U/L (73-393) 01/25/18 22:15 Home Medications: Carvedilol 1 tab PO BID 01/28/18 Fluticasone/Vilanterol [Breo Ellipta 200-25 Mcg INH] 1 puff IH DAILY 01/28/18 Losartan Potassium 1 tab PO DAILY 01/28/18 Omeprazole 1 tab PO DAILY 01/28/18 Diet: AHA Activity: Ad andrew
[2018-01-29 17:48] VITALS: BP 154/71; TEMP 97.6
== END 2018-01-29 18:41 | disposition home or self-care (01) | DRG 390 ==
LOC: ER 21:29 → ERHOLD 01-26 03:10 → 2ND 01-26 03:43
PROVIDERS: ADMIT Internal Medicine; ATTEND Internal Medicine
PROC: 0D9670Z Drainage of Stomach with Drainage Device, Via Natural or Artificial Opening (ICD-10-PCS; principal; 2018-01-26)
DX: K56.609 Unspecified intestinal obstruction, unspecified as to partial versus complete obstruction (principal); I10 Essential (primary) hypertension; E87.6 Hypokalemia; K21.9 Gastro-esophageal reflux disease without esophagitis; Z87.891 Personal history of nicotine dependence; K43.9 Ventral hernia without obstruction or gangrene
CPT/HCPCS: 36415; 71045; 74018; 74177; 74250; 80048; 80076; 81003; 81015; 83690; 83735; 84100; 84132; 84484; 85025; 87086; 87088; 93005; 96361; 96365; 96375; 99285; C9113; J0744; J1650; J2405; J3010; J7030; Q9967

== ENCOUNTER 2018-07-30 00:51 | Emergency (ER) | payer OTHER ==
--- OUTSIDE RECORDS SUMMARY | 2018-07-30 00:53 | XMS REPORT | Clinical Summary ---
:1945 Author Organization [facility] Address [address] [place] [address] Care Team Providers Name Role Phone Olivier [...] Last Done Comments BREAST CANCER SCREENING 1994 SHINGLES VACCINES (#1) 1994 65+ PNEUMOCOCCAL VACCINE (2 of 2 - PPSV23) 12/28/2016 2015 INFLUENZA VACCINE 09/19/2018 COLONOSCOPY SCREENING 10/05/2024 10/05/2014 Procedures Procedure Name Priority Date/Time Associated Diagnosis Comments TRANSFUSE RED BLOOD Routine 10/24/2017 5:25 PM CDT CELLS TRANSFUSE RED BLOOD Routine 10/24/2017 5:25 PM CDT CELLS after 07/29/2017 Results Transfuse RBC (10/24/2017 5:25 PM CDT)Only the most recent of2 resultswithin the time period is included.after 07/29/2017 Insurance Payer Benefit Plan / Subscriber ID Effective Dates Phone Address Type Group MEDICARE MEDICARE PART A xxxxxxxxxx 2009-[place] Medicare AND B nt AET [place] [facility] xxxxxxxxxx 2013-[employer] [place]
[2018-07-30] MEDS ORDERED: ONDANSETRON 4 MG/2 ML VIAL ONE (02:08)
[2018-07-30] MEDS ORDERED: MEPERIDINE HCL 50 MG/ML AMP ONE (02:08)
[2018-07-30 02:09] LABS: Absolute Lymphocytes (CBC) 2.3 K/uL (0.7-4.9); Absolute Monocytes 0.5 K/uL (0.1-1.3); Absolute Neutrophil 4.4 K/uL (1.8-8.0); Basophils % 0.2 % (0-1.3); Eosinophils % 1.2 % (0-4.4); Hematocrit 36.2 % (36.0-45.0); MPV 7.5 fL (7.6-11.3); Monocytes % 6.4 % (3.3-12.3); RBC Red Blood Cell Count 4.27 M/uL (3.86-4.86)
[2018-07-30] MEDS ORDERED: NA CHLORIDE 0.9% 1,000 ML ONE (02:09)
[2018-07-30 02:25] LABS: Albumin 3.4 g/dL (3.4-5.0); Bilirubin Direct 0.1 mg/dL (0-0.2); Bilirubin Total 0.4 mg/dL (0.2-1.0); Potassium 3.6 mmol/L (3.5-5.1); Protein, Total 7.1 g/dL (6.4-8.2)
--- NOTE | 2018-07-30 03:40 | ER ---
Nurse's Notes [facility] Name: Mireya Pike Age: 72 yrs Sex: Female : 1945 Arrival Date: 07/30/2018 Time: 00:55 Bed 6 Private MD: Olivier Dent V Diagnosis: Generalized abdominal pain Presentation: 07/30 00:58 Presenting complaint: Child states: She started having abdominal pain around lunch time ed1 yesterday. She said she thought it would get better but it has gotten worse. Transition of care: patient was not received from another setting of care. Onset of symptoms was July 29, 2018. Risk Assessment: Do you want to hurt yourself or someone else? Patient reports no desire to harm self or others. Initial Sepsis Screen: Does the patient meet any 2 criteria? No. Patient's initial sepsis screen is negative. Does the patient have a suspected source of infection? No. Patient's initial sepsis screen is negative. Care prior to arrival: None. 00:58 Method Of Arrival: Ambulatory ed1 00:58 Acuity: TERESE 2 ed1 Triage Assessment: 01:01 General: Appears uncomfortable, Behavior is calm, cooperative. Pain: Complains of pain ed1 in abdomen Pain currently is 10 out of 10 on a pain scale. GI: Reports lower abdominal pain, upper abdominal pain, vomiting. Historical: - Allergies: 01: Morphine; ed1 - Home Meds: 01:01 carvedilol 25 mg Oral tab 1 tab 2 times per day [Active]; losartan 25 mg Oral tab 1 tab ed1 once daily [Active]; melatonin 5 mg Oral tab nightly [Active]; omeprazole 20 mg Oral cpDR 1 cap once daily [Active]; paroxetine HCl 10 mg oral tab 1 tab once daily [Active]; - PMHx: 01:01 Anxiety; Arthritis; bowel obstruction; GERD; High Cholesterol; Hypertension; ed1 incontinence; - PSHx: 01:01 Colostomy; colostomy reversal; bladder mesh removal; Hernia repair; Hysterectomy; ed1 - Immunization history:: Adult Immunizations up to date. - Social history:: Smoking status: Patient/guardian denies using tobacco, Patient/guardian denies using alcohol, street drugs, The patient lives with family. - Ebola Screening: : Patient negative for fever greater than or equal to 101.5 degrees Fahrenheit, and additional compatible Ebola Virus Disease symptoms Patient denies exposure to infectious person Patient denies travel to an Ebola-affected area in the 21 days before illness onset No symptoms or risks identified at this time. - Family history:: not pertinent. Screenin:21 Abuse screen: Denies threats or abuse. Denies injuries from another. Nutritional lp1 screening: No deficits noted. Tuberculosis screening: No symptoms or risk factors identified. Fall Risk None identified. Assessment: 01:19 General: Appears uncomfortable, Behavior is appropriate for age. Pain: Complains of lp1 pain in right upper quadrant and left upper quadrant Pain currently is 8 out of 10 on a pain scale. Quality of pain is described as sharp. Neuro: Level of Consciousness is awake, alert, obeys commands, Oriented to person, place, time, situation. Cardiovascular: Patient's skin is warm and dry. Respiratory: Respiratory effort is even, unlabored, Respiratory pattern is regular. GI: Bowel sounds present X 4 quads. Abdomen is tender to palpation in epigastric area, right upper quadrant and left upper quadrant Reports nausea, vomiting, Patient currently denies bloating, constipation. : No signs and/or symptoms were reported regarding the genitourinary system. EENT: No signs and/or symptoms were reported regarding the EENT system. Derm: Skin is pink, warm \T\ dry. Musculoskeletal: No deficits noted. 02:05 Reassessment: Patient's O2 at 90% on RA after administration of pain medication; NC lp1 applied at 2L; Patient states pain relief on reassessment. 03:42 Reassessment: MD verbal order to cancel antibiotics. lp1 Vital Signs: 01:01 BP 168 / 85; Pulse 86; Resp 20; Temp 97.8(O); Pulse Ox 96% on R/A; Weight 68.04 kg; ed1 Height 5 ft. 0 in. (152.40 cm); Pain 10/10; 01:45 BP 182 / 93; Pulse 74; Resp 18; Pulse Ox 99% on R/A; lp1 02:05 Pulse Ox 90% on R/A; lp1 02:06 Pulse Ox 99% on 2 lpm NC; lp1 03:44 BP 148 / 75; Pulse 77; Resp 18; Pulse Ox 100% on R/A; lp1 01:01 Body Mass Index 29.29 (68.04 kg, 152.40 cm) ed1 02:05 After administration of medication lp1 ED Course: 00:55 Patient arrived in ED. es 00:55 Olivier Dent MD is Private Physician. es 00:59 Triage completed. ed1 01:01 Arm band placed on right wrist. ed1 01:15 Inserted saline lock: 20 gauge in right antecubital area, using aseptic technique. lp1 Blood collected. 01:19 Marah Weber RN is Primary Nurse. lp1 01:20 Patient has correct armband on for positive identification. Placed in gown. Bed in low lp1 position. Pulse ox on. NIBP on. 01:34 Yan Augustin MD is Attending Physician. ma2 03:03 CT Abd/Pelvis - IV Contrast Only In Process Unspecified. EDMS 03:42 No provider procedures requiring assistance completed. lp1 04:00 IV discontinued, No redness/swelling at site. Pressure dressing applied. lp1 Administered Medications: 02:03 Drug: NS 0.9% 1000 ml Route: IV; Rate: 1 bolus; Site: right antecubital; lp1 03:45 Follow up: IV Status: Completed infusion; IV Intake: 1000ml lp1 02:03 Drug: Zofran 4 mg Route: IVP; Site: right antecubital; lp1 02:15 Follow up: Response: Nausea is decreased lp1 02:03 Drug: Demerol 50 mg Route: IVP; Site: right antecubital; lp1 02:15 Follow up: Response: Pain is decreased lp1 03:43 Not Given (Physician Discretion): Rocephin 1 grams IV at calculated rate once; Given lp1 slow IV push per pharmacy instructions 03:43 Not Given (Physician Discretion): Flagyl 500 mg 100 ml IVPB at 200 ml/hr once over 30 lp1 mins Intake: 03:45 IV: 1000ml; Total: 1000ml. lp1 Outcome: 03:39 Discharge ordered by . ma2 04:00 Discharged to home ambulatory, with family. lp1 04:00 Condition: good 04:00 Discharge instructions given to patient, family, Instructed on discharge instructions, follow up and referral plans. medication usage, Demonstrated understanding of instructions, follow-up care, medications, Prescriptions given X 2. 04:00 Patient left the ED. lp1 Signatures: Dispatcher [employer] EDNevaeh Steen Erika, RN RN ed1 Marah Weber RN RN lp1 Yan Augustin MD MD ma2 Corrections: (The following items were deleted from the chart) : 02:00 Pulse Ox 99% 2 lpm Nasal Cannula; lp1 lp1 :19 01:59 Pulse Ox 90% RA; After administration of medication; lp1 lp1 04:21 04:21 Patient left the ED. lp1 lp1
--- NOTE | 2018-07-30 03:40 | EDPHYS ---
Physician Documentation [facility] Name: Mireya Pike Age: 72 yrs Sex: Female : 1945 Arrival Date: 07/30/2018 Time: 00:55 Bed 6 Private MD: Olivier Dent V ED Physician Yan Augustin HPI: 07/30 01:46 This 72 yrs old Female presents to ER via Ambulatory with complaints of ma2 Abdominal Pain. 01:46 Onset: The symptoms/episode began/occurred gradually, 3 day(s) ago. Associated signs ma2 and symptoms: Pertinent positives: vomiting, Pertinent negatives: anorexia, constipation, headache. Severity of pain: At its worst the pain was moderate in the emergency department the pain is unchanged. The patient has experienced similar episodes in the past. Historical: - Allergies: 01:01 Morphine; ed1 - Home Meds: 01:01 carvedilol 25 mg Oral tab 1 tab 2 times per day [Active]; losartan 25 mg Oral tab 1 tab ed1 once daily [Active]; melatonin 5 mg Oral tab nightly [Active]; omeprazole 20 mg Oral cpDR 1 cap once daily [Active]; paroxetine HCl 10 mg oral tab 1 tab once daily [Active]; - PMHx: 01:01 Anxiety; Arthritis; bowel obstruction; GERD; High Cholesterol; Hypertension; ed1 incontinence; - PSHx: 01:01 Colostomy; colostomy reversal; bladder mesh removal; Hernia repair; Hysterectomy; ed1 - Immunization history:: Adult Immunizations up to date. - Social history:: Smoking status: Patient/guardian denies using tobacco, Patient/guardian denies using alcohol, street drugs, The patient lives with family. - Ebola Screening: : Patient negative for fever greater than or equal to 101.5 degrees Fahrenheit, and additional compatible Ebola Virus Disease symptoms Patient denies exposure to infectious person Patient denies travel to an Ebola-affected area in the 21 days before illness onset No symptoms or risks identified at this time. - Family history:: not pertinent. ROS: 01:46 Constitutional: Negative for fever, chills, and weight loss. ma2 01:46 Abdomen/GI: Positive for abdominal pain, vomiting, Negative for abdominal distension, flatulence. 01:46 All other systems are negative. Exam: 01:46 Constitutional: This is a well developed, well nourished patient who is awake, alert, ma2 and in no acute distress. Chest/axilla: Normal chest wall appearance and motion. Nontender with no deformity. No lesions are appreciated. Cardiovascular: Regular rate and rhythm with a normal S1 and S2. No gallops, murmurs, or rubs. Normal PMI, no JVD. No pulse deficits. Respiratory: Lungs have equal breath sounds bilaterally, clear to auscultation and percussion. No rales, rhonchi or wheezes noted. No increased work of breathing, no retractions or nasal flaring. Abdomen/GI: Soft, non-tender, with normal bowel sounds. No distension or tympany. No guarding or rebound. No evidence of tenderness throughout. MS/ Extremity: Pulses equal, no cyanosis. Neurovascular intact. Full, normal range of motion. Neuro: Awake and alert, GCS 15, oriented to person, place, time, and situation. Cranial nerves II-XII grossly intact. Motor strength 5/5 in all extremities. Sensory grossly intact. Cerebellar exam normal. Normal gait. Vital Signs: 01:01 BP 168 / 85; Pulse 86; Resp 20; Temp 97.8(O); Pulse Ox 96% on R/A; Weight 68.04 kg; ed1 Height 5 ft. 0 in. (152.40 cm); Pain 10/10; 01:45 BP 182 / 93; Pulse 74; Resp 18; Pulse Ox 99% on R/A; lp1 02:05 Pulse Ox 90% on R/A; lp1 02:06 Pulse Ox 99% on 2 lpm NC; lp1 03:44 BP 148 / 75; Pulse 77; Resp 18; Pulse Ox 100% on R/A; lp1 01:01 Body Mass Index 29.29 (68.04 kg, 152.40 cm) ed1 02:05 After administration of medication lp1 MDM: 01:34 Patient medically screened. ma2 01:46 Differential diagnosis: cholecystitis, Cholelithiasis, gastritis, gastroesophageal ma2 reflux disease. 03:37 Data reviewed: vital signs, nurses notes. Counseling: I had a detailed discussion with ma2 the patient and/or guardian regarding: the historical points, exam findings, and any diagnostic results supporting the discharge/admit diagnosis, the presence of at least one elevated blood pressure reading (>120/80) during this emergency department visit, the need for outpatient follow up. Response to treatment: the patient's symptoms have resolved after treatment. ED course: ct showing partial obstruction however patient states all symptoms are resolved and would like to go home, vs and lab wnl. 07/30 01:46 Order name: Basic Metabolic Panel [facility] 07/30 01:46 Order name: CBC with Diff; Complete Time: 02:46 [facility] 07/30 01:46 Order name: Creatinine for Radiology; Complete Time: 02:46 [facility] 07/30 01:46 Order name: Hepatic Function; Complete Time: 02:46 [facility] 07/30 01:46 Order name: Lipase; Complete Time: 02:46 [facility] 07/30 01:49 Order name: Basic Metabolic Panel; Complete Time: 02:46 [facility] 07/30 01:46 Order name: IV Saline Lock; Complete Time: 02:04 [facility] 07/30 01:46 Order name: Labs collected and sent; Complete Time: 02:04 [facility] 07/30 01:46 Order name: CT Abd/Pelvis - IV Contrast Only wv2 Administered Medications: 02:03 Drug: NS 0.9% 1000 ml Route: IV; Rate: 1 bolus; Site: right antecubital; lp1 03:45 Follow up: IV Status: Completed infusion; IV Intake: 1000ml lp1 02:03 Drug: Zofran 4 mg Route: IVP; Site: right antecubital; lp1 02:15 Follow up: Response: Nausea is decreased lp1 02:03 Drug: Demerol 50 mg Route: IVP; Site: right antecubital; lp1 02:15 Follow up: Response: Pain is decreased lp1 03:43 Not Given (Physician Discretion): Rocephin 1 grams IV at calculated rate once; Given lp1 slow IV push per pharmacy instructions 03:43 Not Given (Physician Discretion): Flagyl 500 mg 100 ml IVPB at 200 ml/hr once over 30 lp1 mins Disposition: 07/30/18 03:39 Discharged to Home. Impression: Generalized abdominal pain. - Condition is Stable. - Discharge Instructions: Abdominal Pain, Adult. - Prescriptions for Tylenol- Codeine #3 300-30 mg Oral Tablet - take 2 tablet by ORAL route every 6 hours As needed; 30 tablet. Pepcid 20 mg Oral Tablet - take 1 tablet by ORAL route once daily for 10 days; 10 tablet. - Medication Reconciliation Form, Thank You Letter, Antibiotic Education, Prescription Opioid Use form. - Follow up: Private Physician; When: Tomorrow; Reason: If symptoms return, Continuance of care. Signatures: Dispatcher [employer] Remedios Campuzano RN RN ed1 Marah Weber RN RN lp1 Yan Augustin MD MD ma2 Corrections: (The following items were deleted from the chart) 04:21 01:47 Urine Dipstick-Ancillary ordered. ma2 lp1 04:21 03:39 07/30/2018 03:39 Discharged to Home. Impression: Generalized abdominal pain. lp1 Condition is Stable. Forms are Medication Reconciliation Form, Thank You Letter, Antibiotic Education, Prescription Opioid Use. Follow up: Private Physician; When: Tomorrow; Reason: If symptoms return, Continuance of care. ma2
[2018-07-30 08:57] VITALS: TEMP 97.8
[2018-07-30 09:04] VITALS: BP 148/75; O2SAT 100
--- NOTE | 2018-07-30 10:12 | RAD REPORT ---
EXAM DESCRIPTION: CT - Abdomen Pelvis W Contrast - 07/30/2018 7:10 am CLINICAL HISTORY: 72-year-old female with abdominal pain TECHNIQUE: Axial CT imaging of the abdomen and pelvis was performed following the administration of intravenous contrast.. Sagittal and coronal reconstructed images were then performed. The CT stud y is performed according to ALARA (as low as reasonably achievable) or ALARA/IMAGE GENTLY, with autom atic adjustment of mA and/or kV according to patient size. Performed on: 07/30/2018 at 2:52 AM. COMPARISON: CT abdomen and pelvis performed on 01/26/2018 FINDINGS: Lung bases: The lung bases are clear. There is a moderate to large hiatal hernia. Liver: The liver is normal in size and configuration. No focal hepatic abnormalities are identified. Liver attenuation is within normal limits. Spleen: The spleen is normal is size, configuration and attenuation. Gallbladder and bile duct: The gallbladder is well distended and unremarkable. There is no biliary ductal dilatation. Pancreas: The pancreas is grossly normal in size and configuration. Adrenal Glands: The adrenal glands are normal in size and configuration. Kidneys: The kidneys are normal in size and configuration. There is no evidence of hydronephrosis. Th ere is no evidence of nephrolithiasis. No definite solid or cystic renal mass lesions are identified. Stomach: The stomach is grossly normal. There is a moderate to large hiatal hernia. Bowel: There are multiple fluid-filled, distended small bowel loops within the anterior peritoneal ca vity. Some of these bowel loops demonstrates fecalization. Again demonstrated is a ventral abdominal wall hernia containing a fecalized small bowel loop as well as additional nondilated small bowel loop s containing fluid. There are postsurgical changes in the rectosigmoid junction consistent with parti al colonic resection as well as postsurgical changes of the small bowel in the right hemiabdomen. Appendix: The appendix is likely surgically absent. Free air: There is no evidence of free air. Free fluid: There is a trace amount of ascites within the anterior peritoneal cavity. Vasculature: The aorta is normal in caliber and contour. The inferior vena cava is grossly unremarkab le. Lymphadenopathy: No pathologic lymphadenopathy is identified. Bladder: The bladder is well distended and smooth in contour. Reproductive: The uterus is surgically absent Bones: No acute osseous abnormalities are identified. There are mild chronic changes of the lumbar sp ine. Soft tissues: See above regarding ventral abdominal wall hernia. IMPRESSION: 1. Ventral abdominal wall hernia, similar when compared to the prior study containing mu ltiple nondilated fluid-filled small bowel loops some of which demonstrate fecalization. A partial pr oximal small bowel obstruction related to the ventral abdominal wall hernia is not excluded. 2. Prior partial small and large bowel resection. 3. Moderate to large hiatal hernia as noted previously. 4. Trace amount of ascites in the anterior peritoneal cavity. 5. Remote hysterectomy. These findings were discussed with Dr. Carlos Augustin on 07/30/2018 at 3:35 AM central time Electronically signed by: Danita Joy DO 07/30/2018 3:36 AM CDT Due to temporary technical issues with the PACS/Fluency reporting system, reports are being signed by the in house radiologist as a courtesy to ensure prompt reporting. The interpreting radiologist is f ully responsible for the content of the report.
--- NOTE | 2018-07-31 06:20 | EKG ---
Test Date: 2018-07-30 Test Time: 09:12:06 Nerve Specialist: STEFANO MEASUREMENT RESULTS: Intervals: Rate: 82 KS: 152 QRSD: 142 QT: 448 QTc: 523 [place]: P: 68 KS: 152 QRS: 76 T: 63 INTERPRETIVE STATEMENTS: Normal sinus rhythm Left bundle branch block Abnormal ECG Compared to ECG 01/25/2018 23:28:44 No significant changes Electronically Signed On 07-31-18 06:19:52 CDT by Jayce Oh
== END 2018-07-30 04:21 | disposition home or self-care (01) ==
LOC: ER 00:51
DX: R10.84 Generalized abdominal pain (principal); R11.2 Nausea with vomiting, unspecified; I10 Essential (primary) hypertension; F41.9 Anxiety disorder, unspecified; E78.00 Pure hypercholesterolemia, unspecified; Z88.5 Allergy status to narcotic agent
CPT/HCPCS: 93005; 85025; 80048; 36415; 80076; 83690; 74177; Q9967; J2175; J7030; J2405; 96361; 96374; 96375; 99284

== ENCOUNTER 2018-07-30 08:46 | Inpatient (IN) | payer OTHER ==
--- OUTSIDE RECORDS SUMMARY | 2018-07-30 08:49 | XMS REPORT | Clinical Summary ---
:1945 Author Organization [facility] Address [address] [place] [address] Care Team Providers Name Role Phone Olivier [...] Last Done Comments BREAST CANCER SCREENING 1994 COLONOSCOPY SCREENING 1994 SHINGLES VACCINES (#1) 1994 65+ PNEUMOCOCCAL VACCINE (2 of 2 - PPSV23) 12/28/2016 2015 INFLUENZA VACCINE 09/19/2018 Procedures Procedure Name Priority Date/Time Associated Diagnosis [...] Group MEDICARE MEDICARE PART A xxxxxxxxxx 2009-Lang [place], [place] Medicare AND B nt [employer] [facility] xxxxxxxxxx 2013-[employer] [place]
--- NOTE | 2018-07-30 09:43 | EDPHYS ---
Physician Documentation [facility] Name: Mireya Pike Age: 72 yrs Sex: Female : 1945 Arrival Date: 07/30/2018 Time: 08:50 Bed 8 Private MD: Olivier Dent V ED Physician Jeffrey Izaguirre HPI: 07/30 13:11 This 72 yrs old Female presents to ER via Ambulatory with complaints of tw4 Abdominal Pain. 13:11 The patient presents with abdominal pain. Onset: The symptoms/episode began/occurred tw4 today. The symptoms do not radiate. Associated signs and symptoms: none. The symptoms are described as intermittent. Modifying factors: The symptoms are alleviated by nothing, the symptoms are aggravated by nothing. Severity of pain: At its worst the pain was moderate in the emergency department the pain is actually worse. The patient has been recently seen at the [facility] Emergency Department, yesterday, for similar complaints. Historical: - Allergies: 09:10 Morphine; hj - PMHx: 09:10 Anxiety; Arthritis; bowel obstruction; GERD; High Cholesterol; Hypertension; hj incontinence; - PSHx: 09:10 Colostomy; colostomy reversal; bladder mesh removal; Hernia repair; Hysterectomy; hj - Immunization history:: Adult Immunizations up to date. - Social history:: Smoking status: Patient/guardian denies using tobacco, Patient/guardian denies using alcohol. - Ebola Screening: : Patient negative for fever greater than or equal to 101.5 degrees Fahrenheit, and additional compatible Ebola Virus Disease symptoms Patient denies exposure to infectious person Patient denies travel to an Ebola-affected area in the 21 days before illness onset. ROS: 13:11 Constitutional: Negative for fever, chills, and weight loss, Eyes: Negative for injury, tw4 pain, redness, and discharge, Cardiovascular: Negative for chest pain, palpitations, and edema, Respiratory: Negative for shortness of breath, cough, wheezing, and pleuritic chest pain. 13:11 Abdomen/GI: Positive for abdominal pain. Exam: 13:11 Constitutional: This is a well developed, well nourished patient who is awake, alert, tw4 and in no acute distress. Head/Face: Normocephalic, atraumatic. Cardiovascular: Regular rate and rhythm with a normal S1 and S2. No gallops, murmurs, or rubs. Normal PMI, no JVD. No pulse deficits. Respiratory: Lungs have equal breath sounds bilaterally, clear to auscultation and percussion. No rales, rhonchi or wheezes noted. No increased work of breathing, no retractions or nasal flaring. 13:47 Constitutional: This is a well developed, well nourished patient who is awake, alert, tw4 and in no acute distress. Head/Face: Normocephalic, atraumatic. Chest/axilla: Normal chest wall appearance and motion. Nontender with no deformity. No lesions are appreciated. Cardiovascular: Regular rate and rhythm with a normal S1 and S2. No gallops, murmurs, or rubs. Normal PMI, no JVD. No pulse deficits. Respiratory: Lungs have equal breath sounds bilaterally, clear to auscultation and percussion. No rales, rhonchi or wheezes noted. No increased work of breathing, no retractions or nasal flaring. Back: No spinal tenderness. No costovertebral tenderness. Full range of motion. MS/ Extremity: Pulses equal, no cyanosis. Neurovascular intact. Full, normal range of motion. Neuro: Awake and alert, GCS 15, oriented to person, place, time, and situation. Cranial nerves II-XII grossly intact. Motor strength 5/5 in all extremities. Sensory grossly intact. Cerebellar exam normal. Normal gait. 13:47 Abdomen/GI: Inspection: abdomen appears normal, Bowel sounds: diminished, Palpation: moderate abdominal tenderness, in all quadrants. Vital Signs: 09:05 BP 164 / 99; Pulse 82; Resp 18; Temp 86.2(TE); Pulse Ox 97% on R/A; Weight 72.57 kg; hj Height 5 ft. 0 in. (152.40 cm); Pain 10/10; 09:53 BP 171 / 82; Pulse 80; Resp 20; Temp 94.6(A); Pulse Ox 96% on R/A; mh5 10:14 BP 136 / 69; Pulse 80; Resp 16; Pulse Ox 95% on R/A; ae4 10:48 Temp 97.5(O); ae4 11:22 BP 156 / 74; Pulse 82; Resp 25; Temp 97.4(A); Pulse Ox 96% on R/A; mh5 12:29 BP 170 / 82; Pulse 74; Resp 15; Temp 97.7(O); Pulse Ox 96% on R/A; ae4 13:02 BP 164 / 79; Pulse 80; Resp 17; Pulse Ox 96% on R/A; ae4 09:05 Body Mass Index 31.25 (72.57 kg, 152.40 cm) hj MDM: 09:07 Patient medically screened. tw4 13:47 Differential diagnosis: acute coronary syndrome, appendicitis, bowel obstruction, tw4 pancreatitis, Peptic Ulcer Disease, Perf. Duodenal Ulcer, Perf. Gastric Ulcer, Peritonitis. Data reviewed: vital signs, nurses notes. Counseling: I had a detailed discussion with the patient and/or guardian regarding: the historical points, exam findings, and any diagnostic results supporting the discharge/admit diagnosis, lab results, radiology results. Medication response: Demerol. Physician consultation: Olivier Dent MD regarding admission, patient's condition, and will see patient in ED. Admission orders: after a detailed discussion of the patient's condition and case, the admit orders are written by me. 13:47 Data interpreted: Pulse oximetry: Interpretation: normal. Physician consultation: would [facility] like consultation with Dr. Daljit Bull and Dr Morris. 07/30 09:27 Order name: Lactate tw 07/30 09:27 Order name: Basic Metabolic Panel tw 07/30 09:27 Order name: CBC with Diff tw 07/30 09:27 Order name: Creatinine for Radiology tw 07/30 09:27 Order name: Hepatic Function tw 07/30 09:27 Order name: Lipase tw 07/30 09:30 Order name: Lactate [facility] 07/30 09:30 Order name: Basic Metabolic Panel [facility] 07/30 12:27 Order name: Basic Metabolic Panel EDMS 07/30 12:27 Order name: Basic Metabolic Panel EDMS 07/30 12:27 Order name: CBC with Automated Diff EDMS 07/30 12:27 Order name: CBC with Automated Diff EDMS 07/30 12:27 Order name: Lipase EDMS 07/30 12:27 Order name: Lipase EDMS 07/30 09:27 Order name: IV Saline Lock; Complete Time: 09:40 [facility] 07/30 09:27 Order name: Labs collected and sent; Complete Time: 10:13 tw4 07/30 12:27 Order name: NPO EDMS 07/30 12:27 Order name: Liver (Hepatic) Function EDMS 07/30 12:27 Order name: Liver (Hepatic) Function EDMS Administered Medications: 09:30 Drug: NS 0.9% 1000 ml Route: IV; Rate: 1 bolus; Site: right antecubital; ae4 10:41 Follow up: IV Status: Completed infusion ae4 09:30 Drug: Zofran 4 mg Route: IVP; Site: right antecubital; ae4 10:13 Follow up: Response: Nausea is decreased ae4 09:33 Drug: Demerol 50 mg Route: IVP; Site: right antecubital; ae4 10:13 Follow up: Response: Pain is decreased ae4 11:57 Drug: Zofran 4 mg Route: IVP; Site: right antecubital; ae4 12:58 Follow up: Response: Nausea is decreased ae4 12:03 Drug: fentaNYL (PF) 25 mcg Route: IVP; Site: right antecubital; ae4 12:58 Follow up: Response: Pain is decreased ae4 13:22 Drug: Demerol 50 mg Route: IVP; Site: right antecubital; ae4 13:31 Follow up: Response: Pain is decreased ae4 Disposition: 07/30/18 09:42 Hospitalization ordered by Olivier Dent for Inpatient Admission. Preliminary diagnosis are Small bowel obstruction, Dehydration. - Bed requested for Telemetry/MedSurg (Inpatient). - Status is Inpatient Admission. ae4 - Condition is Stable. - Problem is new. - Symptoms are unchanged. UTI on Admission? No Signatures: Dispatcher [facility] Kina Garcia Francis Heredia RN RN Jeffrey Izaguirre MD MD tw4 Hoang Bee RN RN ae4 Corrections: (The following items were deleted from the chart) 12:42 09:42 Hospitalization Ordered by Olivier Dent MD for Inpatient Admission. Preliminary bd diagnosis is Small bowel obstruction; Dehydration. Bed requested for Telemetry/MedSurg (Inpatient). Status is Inpatient Admission. Condition is Stable. Problem is new. Symptoms are unchanged. UTI on Admission? No. tw4 13:31 12:42 07/30/2018 09:42 Hospitalization Ordered by Olivier Dent MD for Inpatient ae4 Admission. Preliminary diagnosis is Small bowel obstruction; Dehydration. Bed requested for Telemetry/MedSurg (Inpatient). Status is Inpatient Admission. Condition is Stable. Problem is new. Symptoms are unchanged. UTI on Admission? No. bd
--- NOTE | 2018-07-30 09:43 | ER ---
Nurse's Notes [facility] Name: Mireya Pike Age: 72 yrs Sex: Female : 1945 Arrival Date: 07/30/2018 Time: 08:50 Bed 8 Private MD: Olivier Dent V Diagnosis: Small bowel obstruction;Dehydration Presentation: 07/30 09:06 Presenting complaint: Patient states: was D/C'd around 4 am today from here for abd hj pain, was Rx with pepcid; was told CT was negative; pain is getting worse; pain is on the epigastric area with reports of vomiting; denies fever;. Transition of care: patient was not received from another setting of care. Onset of symptoms was July 30, 2018. Risk Assessment: Do you want to hurt yourself or someone else? Patient reports no desire to harm self or others. Initial Sepsis Screen: Does the patient meet any 2 criteria? No. Patient's initial sepsis screen is negative. Does the patient have a suspected source of infection? No. Patient's initial sepsis screen is negative. Care prior to arrival: None. 09:06 Method Of Arrival: Ambulatory 09:06 Acuity: TERESE 3 hj Triage Assessment: 09:21 General: Appears in no apparent distress. uncomfortable, Behavior is calm, cooperative, hj appropriate for age. Pain: Complains of pain in abdomen. GI: Reports upper abdominal pain, nausea, vomiting. Historical: - Allergies: 09:10 Morphine; hj - PMHx: 09:10 Anxiety; Arthritis; bowel obstruction; GERD; High Cholesterol; Hypertension; hj incontinence; - PSHx: 09:10 Colostomy; colostomy reversal; bladder mesh removal; Hernia repair; Hysterectomy; hj - Immunization history:: Adult Immunizations up to date. - Social history:: Smoking status: Patient/guardian denies using tobacco, Patient/guardian denies using alcohol. - Ebola Screening: : Patient negative for fever greater than or equal to 101.5 degrees Fahrenheit, and additional compatible Ebola Virus Disease symptoms Patient denies exposure to infectious person Patient denies travel to an Ebola-affected area in the 21 days before illness onset. Screenin:20 Abuse screen: Denies threats or abuse. Denies injuries from another. Nutritional hj screening: No deficits noted. Tuberculosis screening: No symptoms or risk factors identified. Fall Risk None identified. Assessment: 09:20 General: Appears distressed, uncomfortable, obese, Behavior is cooperative, anxious, ae4 crying, restless. Pain: Complains of pain in umbilical area, right upper quadrant and left upper quadrant Pain currently is 10 out of 10 on a pain scale. Noted to be crying, guarding, moaning, resistant to movement, restless. Neuro: Level of Consciousness is awake, alert, obeys commands, Oriented to person, place, time, situation, Appropriate for age. Cardiovascular: skin is warm . Rhythm is regular. 09:21 GI: Bowel sounds present X 4 quads. Abd is soft Abdomen is tender to palpation. hj 10:13 Reassessment: Patient appears more relaxed. Daughter is at bedside. Patient states ae4 feeling better. Patient states symptoms have improved. 10:16 Reassessment: Provider at bedside discussing plan of care. ae4 10:37 Reassessment: Patient appears in no apparent distress at this time. Patient is resting ae4 with eyes closed, respirations are even and unlabored. Daughter is at bedside. Patient states symptoms have improved. 10:40 GI: NG tube set at low intermittent suction, 225 mls brown gastric contents in suction ae4 reservoir. 11:50 Reassessment: Patient reports increased pain and nausea. Verified NG tube is draining, ae4 300 mls brown gastric contents in reservoir and are draining. Notified provider, new orders received. 13:03 Reassessment: Patient assisted onto bedside commode to urinate. Patient tolerated well ae4 with nurse assistance. Approximately 200 mls clear yellow urine output at this time,. 13:16 Reassessment: DR. Izaguirre at bedside discussing plan of care, verbal order received for ae4 pain medication. 13:29 Reassessment: Called receiving nurse, spoke to AMANDEEP Blanco via telephone to inform him of ae4 pain medication administration prior to transfer to floor. Vital Signs: 09:05 BP 164 / 99; Pulse 82; Resp 18; Temp 86.2(TE); Pulse Ox 97% on R/A; Weight 72.57 kg; hj Height 5 ft. 0 in. (152.40 cm); Pain 10/10; 09:53 BP 171 / 82; Pulse 80; Resp 20; Temp 94.6(A); Pulse Ox 96% on R/A; mh5 10:14 BP 136 / 69; Pulse 80; Resp 16; Pulse Ox 95% on R/A; ae4 10:48 Temp 97.5(O); ae4 11:22 BP 156 / 74; Pulse 82; Resp 25; Temp 97.4(A); Pulse Ox 96% on R/A; mh5 12:29 BP 170 / 82; Pulse 74; Resp 15; Temp 97.7(O); Pulse Ox 96% on R/A; ae4 13:02 BP 164 / 79; Pulse 80; Resp 17; Pulse Ox 96% on R/A; ae4 09:05 Body Mass Index 31.25 (72.57 kg, 152.40 cm) hj ED Course: 08:50 Patient arrived in ED. mr 08:51 Olivier Dent MD is Private Physician. mr 09:05 Francis Heredia, AMANDEEP is Primary Nurse. hj 09:07 Jeffrey Izaguirre MD is Attending Physician. tw4 09:08 Triage completed. hj 09:11 Arm band placed on right wrist. hj 09:20 Initial lab(s) drawn, by ar, sent to lab. Inserted saline lock: 20 gauge in right hj antecubital area, using aseptic technique. Blood collected. 09:21 Patient has correct armband on for positive identification. Placed in gown. Bed in low hj position. Call light in reach. Side rails up X2. Adult w/ patient. 09:27 EKG done, by airdrop systems technician. reviewed by Jeffrey Izaguirre MD. 3 09:41 Olivier Dent MD is Hospitalizing Provider. tw4 10:03 NGT: inserted 12 Fr. via left nare. verified return of gastric contents, to sv intermittent suction. Returned gastric contents. Patient tolerated well. 13:13 No provider procedures requiring assistance completed. Patient admitted, IV remains in ae4 place. 13:28 Hoang Bee, AMANDEEP is Primary Nurse. ae4 Administered Medications: 09:30 Drug: NS 0.9% 1000 ml Route: IV; Rate: 1 bolus; Site: right antecubital; ae4 10:41 Follow up: IV Status: Completed infusion ae4 09:30 Drug: Zofran 4 mg Route: IVP; Site: right antecubital; ae4 10:13 Follow up: Response: Nausea is decreased ae4 09:33 Drug: Demerol 50 mg Route: IVP; Site: right antecubital; ae4 10:13 Follow up: Response: Pain is decreased ae4 11:57 Drug: Zofran 4 mg Route: IVP; Site: right antecubital; ae4 12:58 Follow up: Response: Nausea is decreased ae4 12:03 Drug: fentaNYL (PF) 25 mcg Route: IVP; Site: right antecubital; ae4 12:58 Follow up: Response: Pain is decreased ae4 13:22 Drug: Demerol 50 mg Route: IVP; Site: right antecubital; ae4 13:31 Follow up: Response: Pain is decreased ae4 Outcome: 09:42 Decision to Hospitalize by Provider. tw4 13:13 Admitted to Med/surg accompanied by tech, family with patient, via stretcher, room 402, ae4 with chart, Report called to AMANDEEP Blanco 13:13 Condition: stable 13:13 Instructed on the need for admit, Demonstrated understanding of instructions. 13:31 Patient left the ED. ae4 Signatures: Hilda Johnson RN Lizett RomeroaquinFrancis RN RN hj Martinez, Maria 5 Jeffrey Izaguirre MD MD tw4 Colleen Hoffmann 3 Hoang Bee RN RN ae4 Corrections: (The following items were deleted from the chart) 09:59 09:53 BP 171 / 82; Pulse 80bpm; Resp 20bpm; Pulse Ox 97% RA; Temp 94.6F Axillary; mh5 mh5 12:31 12:29 BP 170 / 82; Pulse 74bpm; Resp 15bpm; Pulse Ox 96% RA; ae4 ae4
[2018-07-30] MEDS ORDERED: NA CHLORIDE 0.9% 1,000 ML ONE (09:44)
[2018-07-30] MEDS ORDERED: MEPERIDINE HCL 50 MG/ML AMP ONE ×2 (09:44→13:34)
[2018-07-30] MEDS ORDERED: ONDANSETRON 4 MG/2 ML VIAL ONE ×2 (09:44→12:08)
[2018-07-30 10:10] LABS: Absolute Lymphocytes (CBC) 1.4 K/uL (0.7-4.9); Basophils % 0.2 % (0-1.3); Eosinophils % 0.6 % (0-4.4); Hematocrit 38.9 % (36.0-45.0); Lymphocytes % 14.4 % (15.3-44.8); MPV 7.6 fL (7.6-11.3); Monocytes % 4.5 % (3.3-12.3); RBC Red Blood Cell Count 4.62 M/uL (3.86-4.86)
[2018-07-30 10:30] LABS: Albumin 3.6 g/dL (3.4-5.0); Bilirubin Direct 0.1 mg/dL (0-0.2); Bilirubin Total 0.5 mg/dL (0.2-1.0); Potassium 3.8 mmol/L (3.5-5.1); Protein, Total 7.5 g/dL (6.4-8.2)
[2018-07-30] MEDS ORDERED: FENTANYL CITR 100 MCG/2 ML ONE (12:08)
[2018-07-30] MEDS ORDERED: ACETAMINOPHEN 500 MG TAB PO PRN (12:21)
[2018-07-30] MEDS: D5 0.45 NS 1,000 ML IV SCH ×2 (13:00→22:55)
--- NOTE | 2018-07-30 16:28 | P.HP ---
Date of Service: 07/30/18 PC: This 72-year-old patient presents emergency room with severe abdominal pain for diagnosis and treatment. HPC: Patient has had numerous prior surgeries in the past. She has ongoing issues with intermittent small-bowel obstructions due to a ventral hernia that she has. Yesterday began to have severe abdominal pain, presented to the ER with nausea and vomiting. She is given some pain medicine, nasogastric tube was placed, and she is feeling somewhat better at the moment. PMH: Diabetes, hypertension PSHx: Previous exploratory laparotomy with bowel resection and end-colostomy. Colostomy takedown. Bladder suspension. Revision of bladder suspension with removal of mesh. SOC: Allergic to morphine, her medicines were reviewed SYS REVIEW: No cough. Says she occasionally wheezes and now requires take aspirin medicine. Has been having regular bowel movements until just yesterday. Also states she has to go to the restroom 20 times a day to her urinary incontinence. O/E awake alert comfortable at the moment HEENT: Nasogastric tube in place, 60 cc in cylinder Chest: Chest movement equal bilaterally ABD: Hernia has been reduced, abdomen is tender around incisional hernia site however no redness LOCO: Intact DATA: White cell count 10,000, as CT scan shows area of concern involving small bowel and AE ventral hernia IMPRESSION: Partial small-bowel obstruction PLAN: The patient is comfortable at the moment. We will continue with nasogastric suction for the next [address] some mineral oil down through the nasogastric tube, clamped it, and then check residual Q 6 hr. I have explained this to the patient her family. They are comfortable with this. Dr. Morris me be assuming care of the patient tomorrow as he is her usual surgeon.
[2018-07-30] MEDS ORDERED: ALBUTEROL INHALER 60 PUFF/8 GM IH PRN (16:46)
[2018-07-30 16:57] VITALS: BMI 31.2
[2018-07-30] MEDS ORDERED: ALBUTEROL (VENTOLIN) INHALER IH PRN (16:59)
[2018-07-30] MEDS ORDERED: MINERAL OIL 30 ML UCUP FT ONE ×2 (17:00→22:00)
[2018-07-30] MEDS ORDERED: FENTANYL CITR 100 MCG/2 ML IV PRN (19:11)
--- NOTE | 2018-07-30 19:19 | P.HP ---
Addendum entered and electronically signed by Olivier Dent MD 07/30/18 19:18 : NO ANXIETY, DEPRSSSION, STABLE FOR NOW. Original Note: Certification for Inpatient Patient admitted to: Inpatient With expected LOS: >2 Midnights Practitioner: I am a practitioner with admitting privileges, knowledge of patient current condition, hospital course, and medical plan of care. Services: Services provided to patient in accordance with Admission requirements found in Title 42 Section 412.3 of the Code of Federal Regulations Patient History Date of Service: 07/30/18 Reason for admission: NAUSEA AND VOMITING, PAIN. History of Present Illness: MS. CASTELLANOS HAS KNOWN HISTORY OF BOWEL OBSTRUCTION NEAR VENTRAL HERNIA AND WITH PREVIOUS MANY SURGERIES. SHE WAS TO GO BACK TO DR. DAVIDSON AND GI SURGEON AFTER LAST ADMISSION BUT DID NOT DO SO. SHE COMES WITH ABOVE SYMPTOMS FOR TWO DAYS, CAME AT NIGHT, SENT HOME AND CAME BACK AGAIN IN AM WITH SAME SS. Allergies morphine Allergy (Verified 01/26/18 04:36) combative Home Medications: Carvedilol 1 tab PO BID 01/28/18 Fluticasone/Vilanterol [Breo Ellipta 200-25 Mcg INH] 1 puff IH DAILY 01/28/18 Losartan Potassium 1 tab PO DAILY 01/28/18 Omeprazole 1 tab PO DAILY 01/28/18 Albuterol Sulfate [Ventolin Hfa] 1 puff IH Q4H PRN 07/30/18 Imipramine HCl [Tofranil] 10 mg PO BEDTIME 07/30/18 Melatonin 5 mg PO BEDTIME PRN PRN 07/30/18 Mirabegron [Myrbetriq] 1 tab PO DAILY 07/30/18 PARoxetine HCl [Paxil] 10 mg PO BEDTIME 07/30/18 - Past Medical/Surgical History Has patient received pneumonia vaccine in the past: Yes Diabetic: No -: HTN -: anxiety -: diverticulitis -: arthiritis -: acid reflux -: rupture of large intestine -: bladder mesh -: hernia repair -: hysterectomy -: colostomy -: colostomy reversal - Family History Father -: Hypertension, Diabetes Mother -: Hypertension, Diabetes - Social History Smoking Status: Former smoker Alcohol use: Yes CD- Drugs: No Caffeine use: Yes Place of Residence: Home Review of Systems 10-point ROS is otherwise unremarkable General: Weakness, Malaise Gastrointestinal: Nausea, Vomiting, Abdominal Pain, Distention Physical Examination - Vital Signs Temperature: 97.9 F Blood Pressure: 158/77 Pulse: 85 Respirations: 20 Pulse Ox (%): 95 - Physical Exam General: Alert, Moderate distress HEENT: Atraumatic, PERRLA, Mucous membr. moist/pink, EOMI, Sclerae nonicteric Neck: Supple, 2+ carotid pulse no bruit, No LAD, Without JVD or thyroid abnormality Respiratory: Clear to auscultation bilaterally, Normal air movement Cardiovascular: Regular rate/rhythm, Normal S1 S2 Gastrointestinal: Soft and benign, Hyperactive, Distended Musculoskeletal: No tenderness Integumentary: No rashes Neurological: Normal gait, Normal speech, Normal strength at 5/5 x4 extr, Normal tone, Normal affect Lymphatics: No axilla or inguinal lymphadenopathy - Studies Laboratory Data (last 24 hrs) 07/30/18 09:20: Creatinine 1.02 07/30/18 09:20: WBC 10.0 D, Hgb 12.9, Hct 38.9, Plt Count 242 07/30/18 09:20: Sodium 141, Potassium 3.8, BUN 16, Creatinine 1.01, Glucose 127 H, Total Bilirubin 0.5, AST 24, ALT 23, Alkaline Phosphatase 86, Lipase 91 Assessment and Plan - Problems (Diagnosis) (1) SBO (small bowel obstruction) Onset Date: 10/16/16 Current Visit: No Status: Acute Plan: NGT WITH LIS SHE MAY IMPROVE WITH NGT AND LIS. IV PEPCID TO PREVENT GI BLEED. SHE HAS SOME TRAUMATIC COFFEE GROUNDS ALREADY. WILL WATCH LAB DAILY. STABLE FOR NOW. DISCUSSED WITH FAMILY. THEY WANT SURGERY IN [place] IF NEED TO BE DONE. PROGNOSIS GUARDED. (2) HTN (hypertension) Current Visit: Yes Status: Acute Plan: CONTROL IV MEDS. SHE IS NPO Qualifiers: Hypertension type: essential hypertension Qualified Code(s): I10 - Essential (primary) hypertension - Advance Directives Does patient have a Living Will: No Does patient have a Durable POA for Healthcare: No
[2018-07-30] MEDS: METOPROLOL TARTRATE 5 MG/5 ML INJ IV SCH (20:09)
[2018-07-30] MEDS: ONDANSETRON 4 MG/2 ML VIAL IV PRN (20:09)
[2018-07-30] MEDS ORDERED: IMIPRAMINE HCL 10 MG PO SCH (21:00)
[2018-07-30] MEDS ORDERED: PARoxetine HCl 10 MG TAB PO SCH (21:00)
[2018-07-30] MEDS ORDERED: IMIPRAMINE HCL 10 MG TAB PO SCH (21:00)
[2018-07-30] MEDS: PROMETHAZINE 25 MG/ML VIAL IV PRN (22:54)
[2018-07-31] MEDS: METOPROLOL TARTRATE 5 MG/5 ML INJ IV SCH ×4 (01:46→21:30)
[2018-07-31] MEDS: PROMETHAZINE 25 MG/ML VIAL IV PRN ×2 (03:27→10:35)
[2018-07-31 04:31] LABS: Absolute Lymphocytes (CBC) 1.2 K/uL (0.7-4.9); Basophils % 0.1 % (0-1.3); Lymphocytes % 21.6 % (15.3-44.8); MPV 7.3 fL (7.6-11.3); Monocytes % 11.3 % (3.3-12.3)
[2018-07-31 04:50] LABS: Albumin 3.1 g/dL (3.4-5.0); Bilirubin Direct 0.2 mg/dL (0-0.2); Bilirubin Total 0.7 mg/dL (0.2-1.0); Potassium 3.3 mmol/L (3.5-5.1); Protein, Total 6.6 g/dL (6.4-8.2)
[2018-07-31] MEDS: D5 0.45 NS 1,000 ML IV SCH ×4 (05:00→22:16)
[2018-07-31] MEDS: ONDANSETRON 4 MG/2 ML VIAL IV PRN ×2 (06:46→13:41)
[2018-07-31] MEDS ORDERED: HOME MED 1 EA UNK (Mirabegron [Myrbetriq] 1 TAB) PO SCH (09:00)
[2018-07-31] MEDS: HOME MED 1 EA UNK (Fluticasone/Vilanterol [Breo Ellipta 200-25 Mcg Inh] 1 PUFF) IH SCH (09:00)
[2018-07-31] MEDS: KCL 20 MEQ/100 mL IVPB 20 MEQ/100 ML BAG IV SCH ×3 (09:42→22:52)
[2018-07-31] MEDS: FAMOTIDINE 20 MG/2 ML VIAL IV SCH ×2 (09:42→09:43)
--- NOTE | 2018-07-31 13:01 | RAD REPORT ---
EXAM DESCRIPTION: RAD - Chest Single View - 07/31/2018 12:54 pm CLINICAL HISTORY: Device placement nasogastric tube placement IMPRESSION: A nasogastric tube lies within the proximal stomach
[2018-07-31 16:02] LABS: Urine Appearance CLEAR; Urine Bilirubin NEGATIVE (NEG); Urine Blood 1+ (NEG); Urine Color YELLOW; Urine Glucose NEGATIVE (NEG); Urine Protein NEGATIVE (NEG); Urine Urobilinogen 0.2 mg/dL (0.2-1.0); Urine pH 6.5 (5.0-7.0)
[2018-07-31 16:09] LABS: Urine Microscopic Reflex ORDER UMIC
[2018-07-31 16:16] LABS: Urine Bacteria <20 /HPF (<20); Urine Culture Reflex Order NOT NEEDED; Urine RBC <5 /HPF (NONE SEEN)
--- NOTE | 2018-07-31 21:25 | P.PN ---
Subjective Date of Service: 07/31/18 Chief Complaint: NAUSEA AND VOMITING, PAIN. Subjective: No new changes MS. CASTELLANOS IS NOT IMPROVING YET. SHE HAS NOT HAD BM AND STILL ON NGT SUCTION. Review of Systems 10-point ROS is otherwise unremarkable Gastrointestinal: Nausea, Vomiting, Abdominal Pain Physical Examination - Vital Signs Temperature: 97.8 F Blood Pressure: 156/76 Pulse: 101 Respirations: 18 Pulse Ox (%): 94 - Physical Exam General: Mild distress, Moderate distress HEENT: Atraumatic, PERRLA, EOMI Neck: Supple, JVD not distended Respiratory: Clear to auscultation bilaterally, Normal air movement Cardiovascular: Regular rate/rhythm, Normal S1 S2 Gastrointestinal: Hyperactive, Distended Musculoskeletal: No tenderness Integumentary: No rashes Neurological: Normal speech, Normal tone, Normal affect Lymphatics: No axilla or inguinal lymphadenopathy - Studies Medications List Reviewed: Yes Assessment And Plan - Current Problems (Diagnosis) (1) SBO (small bowel obstruction) Onset Date: 10/16/16 Current Visit: No Status: Acute Plan: NGT WITH LIS SHE MAY IMPROVE WITH NGT AND LIS. IV PEPCID TO PREVENT GI BLEED. SHE HAS SOME TRAUMATIC COFFEE GROUNDS ALREADY. WILL WATCH LAB DAILY. STABLE FOR NOW. DISCUSSED WITH FAMILY. THEY WANT SURGERY IN [place] IF NEED TO BE DONE. PROGNOSIS GUARDED. I CALLED DR. CUTLER, HE HAS ACCEPTED TRANSFER. [facility] DOES NOT HAVE A BED. FAMILY WANTS SURGERY IN [place] IF NEEDS. STABLE WITH GUARDED PROGNOSIS. (2) HTN (hypertension) Current Visit: Yes Status: Acute Plan: CONTROL IV MEDS. SHE IS NPO Qualifiers: Hypertension type: essential hypertension Qualified Code(s): I10 - Essential (primary) hypertension
[2018-08-01] MEDS: KCL 20 MEQ/100 mL IVPB 20 MEQ/100 ML BAG IV SCH (01:57)
[2018-08-01] MEDS: METOPROLOL TARTRATE 5 MG/5 ML INJ IV SCH ×4 (02:17→20:22)
[2018-08-01 06:30] LABS: Potassium 3.7 mmol/L (3.5-5.1)
[2018-08-01] MEDS: D5 0.45 NS 1,000 ML IV SCH ×4 (07:21→23:18)
[2018-08-01] MEDS ORDERED: KCL 20 MEQ/100 mL IVPB 20 MEQ/100 ML BAG IV SCH (08:00)
[2018-08-01] MEDS: HOME MED 1 EA UNK (Fluticasone/Vilanterol [Breo Ellipta 200-25 Mcg Inh] 1 PUFF) IH SCH (09:00)
[2018-08-01] MEDS ORDERED: MINERAL OIL 30 ML UCUP FT ONE (09:58)
--- NOTE | 2018-08-01 13:56 | P.PN ---
Date of Service: 08/01/18 S: Patient states she feels somewhat better today. Had bowel movements 2-3 times yesterday. Minimal out through nasogastric tube. O: Vital signs are stable, abdomen is soft, still has some mild tenderness around her hernia site but no hernia is protruding at the moment. No guarding or rebound. A: Partial small-bowel obstruction appears to have resolved. P: Nasogastric tube was discontinued. Patient started on clear liquids, she will ambulate later on today. Clinically appears much improved. Anticipate discharge soon.
[2018-08-01] MEDS: ONDANSETRON 4 MG/2 ML VIAL IV PRN (14:43)
[2018-08-01] MEDS: FAMOTIDINE 20 MG/2 ML VIAL IV SCH (17:57)
[2018-08-01] MEDS ORDERED: HYDRALAZINE HCL 20 MG/ML VIAL IV PRN (21:28)
--- NOTE | 2018-08-01 21:32 | P.PN ---
Subjective Date of Service: 08/01/18 Chief Complaint: NAUSEA AND VOMITING, PAIN. Subjective: Improving MS. CASTELLANOS IS NOT IMPROVING YET. SHE HAS NOT HAD BM AND STILL ON NGT SUCTION. SHE HAD 3 BMS THIS AM. SHE IS SOME BETTER. Review of Systems 10-point ROS is otherwise unremarkable General: Weakness, Malaise Gastrointestinal: Distention Physical Examination - Vital Signs Temperature: 97.7 F Blood Pressure: 185/73 Pulse: 96 Respirations: 20 Pulse Ox (%): 96 - Physical Exam General: Alert, Mild distress HEENT: Atraumatic, PERRLA, EOMI Neck: Supple, JVD not distended Respiratory: Clear to auscultation bilaterally, Normal air movement Cardiovascular: Regular rate/rhythm, Normal S1 S2 Gastrointestinal: Hyperactive, Distended Musculoskeletal: No tenderness Integumentary: No rashes Neurological: Normal speech, Normal tone, Normal affect Lymphatics: No axilla or inguinal lymphadenopathy - Studies Medications List Reviewed: Yes Assessment And Plan - Current Problems (Diagnosis) (1) SBO (small bowel obstruction) Onset Date: 10/16/16 Current Visit: No Status: Acute Plan: NGT WITH LIS SHE MAY IMPROVE WITH NGT AND LIS. IV PEPCID TO PREVENT GI BLEED. SHE HAS SOME TRAUMATIC COFFEE GROUNDS ALREADY. WILL WATCH LAB DAILY. STABLE FOR NOW. DISCUSSED WITH FAMILY. THEY WANT SURGERY IN [place] IF NEED TO BE DONE. PROGNOSIS GUARDED. I CALLED DR. CUTLER, HE HAS ACCEPTED TRANSFER. [facility] DOES NOT HAVE A BED. FAMILY WANTS SURGERY IN [place] IF NEEDS. STABLE WITH GUARDED PROGNOSIS. CLINICALLY IMPROVED. WE CAN CANCEL TRANSFER AND SHE CAN GO TO DR. CUTLER OUTPATIENT. CLEAR LIQUID CHALLANGE. (2) HTN (hypertension) Current Visit: Yes Status: Acute Plan: CONTROL IV MEDS. SHE IS NPO Qualifiers: Hypertension type: essential hypertension Qualified Code(s): I10 - Essential (primary) hypertension
[2018-08-02 00:37] VITALS: O2SAT 96
[2018-08-02] MEDS: METOPROLOL TARTRATE 5 MG/5 ML INJ IV SCH ×3 (01:27→14:00)
[2018-08-02 06:02] LABS: Potassium 3.8 mmol/L (3.5-5.1)
[2018-08-02] MEDS ORDERED: POTASSIUM CL SA 10 MEQ TAB PO ONE (06:06)
[2018-08-02] MEDS: FAMOTIDINE 20 MG/2 ML VIAL IV SCH (08:57)
[2018-08-02] MEDS: D5 0.45 NS 1,000 ML IV SCH ×3 (08:59→12:42)
[2018-08-02] MEDS: HOME MED 1 EA UNK (Fluticasone/Vilanterol [Breo Ellipta 200-25 Mcg Inh] 1 PUFF) IH SCH (09:00)
--- NOTE | 2018-08-02 10:02 | RAD REPORT ---
EXAM DESCRIPTION: RAD - Abdomen W Erect - 08/02/2018 9:36 am CLINICAL HISTORY: Small bowel obstruction, abdominal pain COMPARISON: CT study July 30 TECHNIQUE: Supine and upright views of the abdomen were obtained. FINDINGS: Moderate-size hiatal hernia is identified. No gastric dilatation. Bowel loops in the mid a bdomen remain prominent. Pattern is not substantially different from the July 30 CT study. No free ai r or pneumatosis. Numerous surgical clips are present in the upper abdomen. IMPRESSION: No free air or pneumatosis. Prominent bowel gas pattern not substantially different from July 30 CT study.
[2018-08-02 12:33] VITALS: BP 160/75; TEMP 97.5
== END 2018-08-02 15:18 | disposition home or self-care (01) | DRG 390 ==
LOC: ER 08:46 → ERHOLD 12:19 → 4TH 13:14
PROVIDERS: ADMIT Internal Medicine; ATTEND Internal Medicine
DX: K56.600 Partial intestinal obstruction, unspecified as to cause (principal); I10 Essential (primary) hypertension; F41.9 Anxiety disorder, unspecified; K21.9 Gastro-esophageal reflux disease without esophagitis; Z87.891 Personal history of nicotine dependence; Z90.49 Acquired absence of other specified parts of digestive tract; Z88.5 Allergy status to narcotic agent
CPT/HCPCS: 36415; 71045; 74019; 74177; 80048; 80076; 81003; 81015; 83605; 83690; 84132; 85025; 87086; 87088; 93005; 96361; 96374; 96375; 97161; 99284; 99285; J2175; J2405; J2550; J3010; J7030; Q9967

== ENCOUNTER 2019-03-04 17:50 | Inpatient (IN) | payer OTHER ==
[2019-03-04] MEDS ORDERED: METHYLPREDNISOLONE 125 MG INJ ONE (18:07)
[2019-03-04] MEDS ORDERED: FENTANYL CITR 100 MCG/2 ML ONE ×2 (18:08→20:38)
[2019-03-04] MEDS ORDERED: ALBUTEROL 2.5 MG/3 ML NEB SOL ONE (18:08)
[2019-03-04] MEDS ORDERED: NA CHLORIDE 0.9% 1,000 ML ONE (18:08)
[2019-03-04] MEDS ORDERED: PROMETHAZINE INJ 25 MG/ML AMP ONE (18:08)
[2019-03-04 18:24] LABS: Absolute Lymphocytes (CBC) 2.2 K/uL (0.7-4.9); Basophils % 0.4 % (0-1.3); Hematocrit 38.3 % (36.0-45.0); Lymphocytes % 27.2 % (15.3-44.8); RBC Red Blood Cell Count 4.54 M/uL (3.86-4.86)
[2019-03-04 18:39] LABS: Albumin 3.7 g/dL (3.4-5.0); Bilirubin Direct 0.2 mg/dL (0-0.2); Bilirubin Total 0.5 mg/dL (0.2-1.0); Potassium 4.3 mmol/L (3.5-5.1); Protein, Total 7.6 g/dL (6.4-8.2)
--- NOTE | 2019-03-04 18:52 | RAD REPORT ---
EXAM DESCRIPTION: RAD - Chest Single View - 03/04/2019 6:29 pm CLINICAL HISTORY: DYSPNEA Chest pain. COMPARISON: Chest Single View dated 07/31/2018; Abdomen 1 View (KUB) dated 01/28/2018; Abdomen 1 View (KUB) dated 01/26/2018; Chest Single View dated 01/25/2018 FINDINGS: Portable technique limits examination quality. The lungs are grossly clear. The heart is mildly prominent. Small hiatal hernia. No displaced fractur es. IMPRESSION: No acute intrathoracic process suspected.
--- NOTE | 2019-03-04 19:14 | RAD REPORT ---
EXAM DESCRIPTION: CTAbdomen Pelvis W Contrast - 03/04/2019 7:03 pm CLINICAL HISTORY: Abdominal pain. History of obstruction;Abd pain COMPARISON: Abdomen Pelvis W Contrast dated 07/30/2018; Abdomen Pelvis W Contrast dated 01/26/2018 ; Abdomen Pelvis W Contrast dated 10/14/2016; CT ABD PELVIS W CONTRAST dated 10/04/2014 TECHNIQUE: Biphasic CT imaging of the abdomen and pelvis was performed with 100 ml non-ionic IV cont rast. All CT scans are performed using dose optimization technique as appropriate and may include automated exposure control or mA/KV adjustment according to patient size. FINDINGS: The lung bases are clear.Moderate hiatal hernia. The liver, spleen, pancreas, adrenal glands and kidneys are within normal limits. Complex ventral hernias are again noted containing small bowel loops and fat. Tethering of several of the small bowel loops in the anterosuperior aspect of the abdominal cavity is essentially unchanged since comparative study. Mild dilatation of several left-sided small bowel loops noted. No free fluid or abscess. No free air. No evidence of significant lymphadenopathy. No suspicious bony findings. Calcification along the dependent portion of the urinary bladder may be small bladder stone. IMPRESSION: Complex ventral hernias are again noted without significant change since comparative theresa dies. A mild mechanical small-bowel obstruction of left-sided small bowel loops is likely present rel ated to this.
--- NOTE | 2019-03-04 19:27 | EDPHYS ---
Physician Documentation [facility] Name: Mireya Pike Age: 73 yrs Sex: Female : 1945 Arrival Date: 03/04/2019 Time: 17:51 Bed 7 Private MD: Olivier Dent V ED Physician Luc Hodges HPI: 03/04 18:04 This 73 yrs old Female presents to ER via Ambulatory with complaints of jr8 Abdominal Pain, Vomiting. 18:04 The patient presents with abdominal pain in the left lower quadrant. Onset: The jr8 symptoms/episode began/occurred acutely, today. The symptoms do not radiate. Associated signs and symptoms: Pertinent positives: nausea and vomiting. The symptoms are described as vague. Modifying factors: The symptoms are alleviated by nothing, the symptoms are aggravated by nothing. Severity of pain: At its worst the pain was moderate in the emergency department the pain is unchanged. The patient has experienced similar episodes in the past, a few times. The patient has not recently seen a physician. Daughter of patient stated that she has a history of bowel obstructions secondary to adhesions and possibly hernia complications. Stated that she started to have pain with vomiting today that is not resolving. Also with shortness of breath from asthma history . Historical: - Allergies: 17:55 Morphine; hb - PMHx: 17:55 Arthritis; Hypertension; High Cholesterol; GERD; bowel obstruction; Anxiety; hb incontinence; - PSHx: 17:55 Colostomy; colostomy reversal; bladder mesh removal; Hernia repair; Hysterectomy; hb - Immunization history:: Adult Immunizations up to date. - Social history:: Smoking status: Patient/guardian denies using tobacco. - Ebola Screening: : No symptoms or risks identified at this time. ROS: 18:04 Eyes: Negative for injury, pain, redness, and discharge, ENT: Negative for injury, jr8 pain, and discharge, Neck: Negative for injury, pain, and swelling, Cardiovascular: Negative for chest pain, palpitations, and edema, Back: Negative for injury and pain, MS/Extremity: Negative for injury and deformity, Skin: Negative for injury, rash, and discoloration, Neuro: Negative for headache, weakness, numbness, tingling, and seizure. 18:04 Respiratory: Positive for shortness of breath, wheezing. 18:04 Abdomen/GI: Positive for abdominal pain, nausea and vomiting, Negative for diarrhea, constipation, abdominal cramps, abdominal distension. Exam: 18:04 Eyes: Pupils equal round and reactive to light, extra-ocular motions intact. Lids and jr8 lashes normal. Conjunctiva and sclera are non-icteric and not injected. Cornea within normal limits. Periorbital areas with no swelling, redness, or edema. ENT: Nares patent. No nasal discharge, no septal abnormalities noted. Tympanic membranes are normal and external auditory canals are clear. Oropharynx with no redness, swelling, or masses, exudates, or evidence of obstruction, uvula midline. Mucous membranes moist. Neck: Trachea midline, no thyromegaly or masses palpated, and no cervical lymphadenopathy. Supple, full range of motion without nuchal rigidity, or vertebral point tenderness. No Meningismus. Cardiovascular: Regular rate and rhythm with a normal S1 and S2. No gallops, murmurs, or rubs. Normal PMI, no JVD. No pulse deficits. Back: No spinal tenderness. No costovertebral tenderness. Full range of motion. Skin: Warm, dry with normal turgor. Normal color with no rashes, no lesions, and no evidence of cellulitis. MS/ Extremity: Pulses equal, no cyanosis. Neurovascular intact. Full, normal range of motion. Neuro: Awake and alert, GCS 15, oriented to person, place, time, and situation. Cranial nerves II-XII grossly intact. Motor strength 5/5 in all extremities. Sensory grossly intact. Cerebellar exam normal. Normal gait. 18:04 Respiratory: the patient does not display signs of respiratory distress, Respirations: tachypnea, Breath sounds: wheezing: expiratory that is mild, is heard diffusely. 18:04 Abdomen/GI: Inspection: abdomen appears normal, Bowel sounds: active, all quadrants, Palpation: soft, in all quadrants, moderate abdominal tenderness, in the left lower quadrant, mass, is not appreciated, rebound tenderness, is not appreciated, voluntary guarding, is not appreciated, involuntary guarding, is not appreciated, no appreciated organomegaly, Indicators: McBurney's point is not tender, Balderas's sign is negative, Liver: tenderness, is not appreciated. Vital Signs: 17:55 BP 172 / 106; Pulse 86; Resp 24; Temp 98.7; Pulse Ox 97% on R/A; Weight 81.65 kg; hb Height 5 ft. (152.40 cm); Pain 10/10; 18:20 BP 156 / 88; Pulse 88; Resp 24 S; Pulse Ox 100% on Nebulizer Mask; aa5 18:45 BP 136 / 64; Pulse 88; Resp 16 S; Pulse Ox 97% on R/A; Pain 0/10; aa5 19:45 Pulse 102; Resp 16; Pulse Ox 100% on R/A; rv 20:28 BP 175 / 97; Pulse 102; Resp 20; Pulse Ox 98% on R/A; rv 22:00 BP 173 / 88; Pulse 98; Resp 18; Pulse Ox 99% on R/A; rv 22:30 BP 154 / 71; Pulse 98; Resp 17; Pulse Ox 99% on R/A; rv 17:55 Body Mass Index 35.15 (81.65 kg, 152.40 cm) hb MDM: 17:57 Patient medically screened. 8 19:25 Data reviewed: vital signs, nurses notes, lab test result(s), radiologic studies, CT jr8 scan. Data interpreted: Pulse oximetry: on room air is 97 %. Interpretation: normal. Counseling: I had a detailed discussion with the patient and/or guardian regarding: the historical points, exam findings, and any diagnostic results supporting the discharge/admit diagnosis, lab results, radiology results, the need for further work-up and treatment in the hospital. Physician consultation: Olivier Dent MD was called at 19:25, was contacted at 19:25, regarding admission, to the medical/surgical unit. and will see patient. 19:35 ED course: Dr. Cheatham consulted and will see patient in AM. 03/04 18:03 Order name: Basic Metabolic Panel; Complete Time: 18:46 03/04 18:03 Order name: CBC with Diff; Complete Time: 18:46 03/04 18:03 Order name: Creatinine for Radiology; Complete Time: 19:02 03/04 18:03 Order name: Hepatic Function; Complete Time: 18:46 03/04 18:03 Order name: Lipase; Complete Time: 18:46 03/04 19:30 Order name: Urine Dipstick--Ancillary (enter results); Complete Time: 20:00 [facility] 03/04 18:04 Order name: XRAY Chest (1 view); Complete Time: 19:02 03/04 18:47 Order name: CT Abd/Pelvis - IV Contrast Only; Complete Time: 19:17 03/04 20:46 Order name: XRAY Abdomen With Erect 03/04 18:03 Order name: IV; Complete Time: 18:07 03/04 18:03 Order name: Labs collected and sent; Complete Time: 18:07 03/04 19:25 Order name: NG Tube; Complete Time: 19:42 03/04 19:33 Order name: CONS Physician Consult EDMS Administered Medications: 18:10 Drug: Phenergan 12.5 mg Route: IVP; Site: right antecubital; hb 20:30 Follow up: Response: No adverse reaction rv 18:10 Drug: NS 0.9% 1000 ml Route: IV; Rate: 1000 ml; Site: right antecubital; hb 20:30 Follow up: IV Status: Completed infusion rv 18:15 Drug: SOLU-Medrol 125 mg Route: IVP; Site: right antecubital; hb 20:30 Follow up: Response: No adverse reaction rv 18:16 Drug: Albuterol 2.5 mg Route: Inhalation; hb 18:16 Drug: Albuterol 2.5 mg Route: Inhalation; hb 18:16 Drug: Albuterol 2.5 mg Route: Inhalation; hb 18:17 Drug: fentaNYL (PF) 50 mcg Route: IVP; Site: right antecubital; jl7 20:29 Follow up: Response: No adverse reaction; RASS: Alert and Calm (0) rv 20:37 Drug: fentaNYL (PF) 50 mcg {Note: rass 0.} Route: IVP; Site: right antecubital; rv 22:40 Follow up: Response: No adverse reaction; Marked relief of symptoms; Pain is decreased; rv RASS: Alert and Calm (0) 20:48 Drug: Dilaudid 0.5 mg Route: IVP; Site: right antecubital; ea 22:40 Follow up: Response: No adverse reaction; Marked relief of symptoms; Pain is decreased; rv RASS: Alert and Calm (0) Disposition: 03/05 07:02 Co-signature as Attending Physician, Luc Hodges MD I agree with the assessment and maria eugenia plan of care. Disposition: 03/04/19 19:26 Hospitalization ordered by Olivier Dent for Observation. Preliminary diagnosis is Mechanical Small Bowel Obstruction . - Bed requested for Telemetry/MedSurg (Inpatient). - Status is Observation. rv - Condition is Stable. - Problem is new. - Symptoms have improved. UTI on Admission? No Signatures: Dispatcher [employer] EDLuc Thapa MD MD cha Roszak, Josh, PA PA jr8 Marge Long, RN RN cg Celeste Joyce, AMANDEEP RN Christian Garay RN RN jl7 Alexandra Christine, RN RN Jered Dupree, RN RN rv Corrections: (The following items were deleted from the chart) 03/04 19:54 19:26 Hospitalization Ordered by Olivier Dent MD for Observation. Preliminary diagnosis cg is Mechanical Small Bowel Obstruction . Bed requested for Telemetry/MedSurg (Inpatient). Status is Observation. Condition is Stable. Problem is new. Symptoms have improved. UTI on Admission? No. jr8 22:41 19:54 03/04/2019 19:26 Hospitalization Ordered by Olivier Dent MD for Observation. rv Preliminary diagnosis is Mechanical Small Bowel Obstruction . Bed requested for Telemetry/MedSurg (Inpatient). Status is Observation. Condition is Stable. Problem is new. Symptoms have improved. UTI on Admission? No. cg
--- NOTE | 2019-03-04 19:27 | ER ---
Nurse's Notes [facility] Name: Mireya Pike Age: 73 yrs Sex: Female : 1945 Arrival Date: 03/04/2019 Time: 17:51 Bed 7 Private MD: Olivier Dent V Diagnosis: Mechanical Small Bowel Obstruction Presentation: 03/04 17:53 Presenting complaint: Worsening SOB x 2 days, LLQ pain and N/V today. Transition of hb care: patient was not received from another setting of care. Onset of symptoms was March 03, 2019. Risk Assessment: Do you want to hurt yourself or someone else? Patient reports no desire to harm self or others. Initial Sepsis Screen: Does the patient meet any 2 criteria?. Care prior to arrival: None. 17:53 Method Of Arrival: Ambulatory 17:53 Acuity: TERESE 2 hb 18:00 Initial Sepsis Screen: Does the patient have a suspected source of infection? Yes: aa5 Acute abdominal pain. Historical: - Allergies: 17:55 Morphine; hb - PMHx: 17:55 Arthritis; Hypertension; High Cholesterol; GERD; bowel obstruction; Anxiety; hb incontinence; - PSHx: 17:55 Colostomy; colostomy reversal; bladder mesh removal; Hernia repair; Hysterectomy; hb - Immunization history:: Adult Immunizations up to date. - Social history:: Smoking status: Patient/guardian denies using tobacco. - Ebola Screening: : No symptoms or risks identified at this time. Screenin:00 Abuse screen: Denies threats or abuse. Nutritional screening: No deficits noted. aa5 Tuberculosis screening: No symptoms or risk factors identified. Fall Risk None identified. Assessment: 18:00 General: Appears uncomfortable, Behavior is calm, cooperative. Pain: Complains of pain aa5 in left lower quadrant Pain does not radiate. Pain currently is 10 out of 10 on a pain scale. Quality of pain is described as sharp, Pain began today Is continuous. Neuro: Level of Consciousness is awake, alert, obeys commands, Oriented to person, place, time, situation. Cardiovascular: Heart tones S1 S2 present Rhythm is regular. Respiratory: Reports shortness of breath at rest Airway is patent Respiratory effort is even, labored, Respiratory pattern is regular, symmetrical, tachypnea Breath sounds with wheezes bilaterally. Denies cough. GI: Abdomen is round non-distended, Bowel sounds present X 4 quads. Abd is soft X 4 quads Abdomen is tender to palpation in left lower quadrant Reports nausea, vomiting, Patient currently denies diarrhea. : No signs and/or symptoms were reported regarding the genitourinary system. EENT: No signs and/or symptoms were reported regarding the EENT system. Derm: Skin is pink, warm \T\ dry. Musculoskeletal: Range of motion: intact in all extremities. 18:35 Reassessment: Patient is alert, oriented x 3, equal unlabored respirations, skin aa5 warm/dry/pink. Patient states feeling better. Patient states symptoms have improved. Pt reports SOB has improved. Pt denies pain at this time, denies nausea. Pt resting in bed with eyes closed at this time.Pt's daughter remains at bedside. . 20:45 Reassessment: Patient is alert, oriented x 3, equal unlabored respirations, skin ea warm/dry/pink. Report called to Alexandra BERNSTEIN on second floor. 22:36 Reassessment: complained of sudden severe abdominal pain. assessed and referred to [facility] Muñoz. given pain medicine and abdominal XRAY was done. after watching for over an hour, patient is feeling better. Vital Signs: 17:55 BP 172 / 106; Pulse 86; Resp 24; Temp 98.7; Pulse Ox 97% on R/A; Weight 81.65 kg; hb Height 5 ft. (152.40 cm); Pain 10/10; 18:20 BP 156 / 88; Pulse 88; Resp 24 S; Pulse Ox 100% on Nebulizer Mask; aa5 18:45 BP 136 / 64; Pulse 88; Resp 16 S; Pulse Ox 97% on R/A; Pain 0/10; aa5 19:45 Pulse 102; Resp 16; Pulse Ox 100% on R/A; rv 20:28 BP 175 / 97; Pulse 102; Resp 20; Pulse Ox 98% on R/A; rv 22:00 BP 173 / 88; Pulse 98; Resp 18; Pulse Ox 99% on R/A; rv 22:30 BP 154 / 71; Pulse 98; Resp 17; Pulse Ox 99% on R/A; rv 17:55 Body Mass Index 35.15 (81.65 kg, 152.40 cm) hb ED Course: 17:51 Patient arrived in ED. as 17:51 Olivier Dent MD is Private Physician. as 17:54 Triage completed. hb 17:55 Arm band placed on. hb 17:57 Mati Dorsey [facility] is [facility]. jr8 17:57 Luc Hodges MD is Attending Physician. jr8 18:00 Patient has correct armband on for positive identification. Placed in gown. Bed in low aa5 position. Call light in reach. Side rails up X2. Adult w/ patient. 18:05 Robbi Lugo, RN is Primary Nurse. em 18:05 Initial lab(s) drawn, by me, sent to lab. Inserted saline lock: 20 gauge in right aa5 antecubital area, using aseptic technique. Blood collected. 18:19 No provider procedures requiring assistance completed. aa5 18:29 XRAY Chest (1 view) In Process Unspecified. EDMS 19:03 CT Abd/Pelvis - IV Contrast Only In Process Unspecified. EDMS 19:25 Olivier Dent MD is Hospitalizing Provider. jr8 19:44 NGT: inserted 16 Fr. via right nare. verified placement of air over stomach, verified rv return of gastric contents, to intermittent suction. Returned gastric contents. Patient tolerated well. 20:30 Patient admitted, IV remains in place. rv Administered Medications: 18:10 Drug: Phenergan 12.5 mg Route: IVP; Site: right antecubital; hb 20:30 Follow up: Response: No adverse reaction rv 18:10 Drug: NS 0.9% 1000 ml Route: IV; Rate: 1000 ml; Site: right antecubital; hb 20:30 Follow up: IV Status: Completed infusion rv 18:15 Drug: SOLU-Medrol 125 mg Route: IVP; Site: right antecubital; hb 20:30 Follow up: Response: No adverse reaction rv 18:16 Drug: Albuterol 2.5 mg Route: Inhalation; hb 18:16 Drug: Albuterol 2.5 mg Route: Inhalation; hb 18:16 Drug: Albuterol 2.5 mg Route: Inhalation; hb 18:17 Drug: fentaNYL (PF) 50 mcg Route: IVP; Site: right antecubital; jl7 20:29 Follow up: Response: No adverse reaction; RASS: Alert and Calm (0) rv 20:37 Drug: fentaNYL (PF) 50 mcg {Note: rass 0.} Route: IVP; Site: right antecubital; rv 22:40 Follow up: Response: No adverse reaction; Marked relief of symptoms; Pain is decreased; rv RASS: Alert and Calm (0) 20:48 Drug: Dilaudid 0.5 mg Route: IVP; Site: right antecubital; ea 22:40 Follow up: Response: No adverse reaction; Marked relief of symptoms; Pain is decreased; rv RASS: Alert and Calm (0) Outcome: 19:26 Decision to Hospitalize by Provider. jr8 20:29 Admitted to Med/surg accompanied by tech, via stretcher, room 228, with chart, Report rv called to alexandra bernstein 20:29 Condition: good 20:29 Instructed on the need for admit. 22:41 Patient left the ED. rv Signatures: Dispatcher [employer] EDMS Robbi Lugo, RN RN Beverly Luna Audri, RN RN aa5 Mati Dorsey PA PA jr8 Celeste Joyce RN RN hb Leal, Jahala RN RN jl7 Alexandra Christine, RN RN Jered Dupree, RN RN rv Corrections: (The following items were deleted from the chart) 17:58 17:55 BP 172 / 10; Pulse 6bpm; Resp 24bpm; Pulse Ox 97% RA; Temp 98.7F; 81.65 kg; hb Height 5 ft.; BMI: 35.1; Pain 10/10; hb 18:21 18:00 Respiratory: Reports shortness of breath at rest Airway is patent Respiratory aa5 effort is even, labored, Respiratory pattern is regular, symmetrical, tachypnea Breath sounds are diminished bilaterally. Denies cough, aa5 18:47 18:45 Pulse 88bpm; Resp 16bpm; Spontaneous; Pulse Ox 97% RA; Pain 0/10; aa5 aa5
[2019-03-04 19:48] LABS: Urine Blood 1+ (NEG); Urine Glucose NEGATIVE (NEG); Urine Protein NEGATIVE (NEG); Urine pH 5.5 (5.0-7.0)
[2019-03-04] MEDS ORDERED: HYDROMORPHONE HCL 0.5 MG/0.5 ML INJ ONE (20:49)
[2019-03-04] MEDS: D5 0.45 NS 1,000 ML IV SCH (22:40)
[2019-03-04] MEDS ORDERED: PROMETHAZINE INJ 25 MG/ML AMP IV PRN (22:40)
[2019-03-04 23:02] VITALS: BMI 36.1
[2019-03-05] MEDS: ONDANSETRON 4 MG/2 ML VIAL IV PRN ×3 (03:36→21:49)
[2019-03-05 05:52] LABS: Absolute Lymphocytes (CBC) 0.9 K/uL (0.7-4.9); Hematocrit 38.1 % (36.0-45.0); Lymphocytes % 10.8 % (15.3-44.8); MPV 7.4 fL (7.6-11.3); RBC Red Blood Cell Count 4.49 M/uL (3.86-4.86)
[2019-03-05 06:08] LABS: Potassium 4.2 mmol/L (3.5-5.1)
--- NOTE | 2019-03-05 08:30 | RAD REPORT ---
EXAM DESCRIPTION: RAD - Abdomen W Erect - 03/04/2019 9:18 pm CLINICAL HISTORY: ABD PAIN Pain COMPARISON: Abdomen W Erect dated 08/02/2018; Abdomen Pelvis W Contrast dated 03/04/2019 FINDINGS: The bowel gas pattern is non-obstructive. No evidence of free air or pneumatosis. No suspi cious calcifications. Enteric tube tip is in the stomach. Contrast is present in the urinary bladder. IMPRESSION: No significant bowel obstruction pattern is seen.
[2019-03-05] MEDS: D5 0.45 NS 1,000 ML IV SCH ×2 (08:35→20:40)
[2019-03-05 09:23] LABS: Blood Morphology Comment NOT SEEN (NOT SEEN); Platelet Estimate ADEQ; Urine White Blood Cell Casts OK
--- NOTE | 2019-03-05 13:06 | P.HP ---
Certification for Inpatient Patient admitted to: Inpatient With expected LOS: >2 Midnights Practitioner: I am a practitioner with admitting privileges, knowledge of patient current condition, hospital course, and medical plan of care. Services: Services provided to patient in accordance with Admission requirements found in Title 42 Section 412.3 of the Code of Federal Regulations Patient History Date of Service: 03/05/19 Reason for admission: ABDOMEN PAIN, VOMITING FOR A DAY History of Present Illness: COMES WITH ONE MORE EPISODE OF NAUSEA, VOMITING AND ABDOMEN PAIN. SHE HAS HAD RECURRENT BOWEL OBSTRUCTION IN THE PAST. SHE HAS HAD DR. DAVIDSON OPERATE FOR OBST BEFORE WITH REMOVAL OF ADHESIONS AND PARTIAL COLECTOMY. SHE HAD INITIAL ISSUE STARTED AFTER RUPTURED COLON FROM COLONOSCOPY PERFORATION. Allergies morphine Allergy (Verified 01/26/18 04:36) combative Home Medications: Fluticasone/Vilanterol [Breo Ellipta 200-25 Mcg INH] 1 puff IH DAILY 01/28/18 Omeprazole 1 tab PO DAILY 01/28/18 carvediloL [Carvedilol] 1 tab PO BID 01/28/18 Mirabegron [Myrbetriq] 1 tab PO DAILY 07/30/18 PARoxetine HCl [Paxil] 10 mg PO BEDTIME 07/30/18 - Past Medical/Surgical History Has patient received pneumonia vaccine in the past: Yes Diabetic: No -: HTN -: anxiety -: diverticulitis -: arthiritis -: acid reflux -: incontinence -: rupture of large intestine -: bladder mesh -: hernia repair -: hysterectomy -: colostomy -: colostomy reversal - Family History Father -: Hypertension, Diabetes Mother -: Hypertension, Diabetes - Social History Smoking Status: Former smoker Alcohol use: Yes CD- Drugs: No Caffeine use: Yes Place of Residence: Home Review of Systems 10-point ROS is otherwise unremarkable General: Weakness, Malaise Gastrointestinal: Abdominal Pain, As per HPI Physical Examination - Vital Signs Temperature: 97.5 F Blood Pressure: 132/72 Pulse: 95 Respirations: 18 Pulse Ox (%): 94 - Physical Exam General: Mild distress, Obese HEENT: Atraumatic, PERRLA, Mucous membr. moist/pink, EOMI, Sclerae nonicteric Neck: Supple, 2+ carotid pulse no bruit, No LAD, Without JVD or thyroid abnormality Respiratory: Clear to auscultation bilaterally, Normal air movement Cardiovascular: Regular rate/rhythm, Normal S1 S2 Gastrointestinal: Distended, Tenderness (MILD TENDER. MOD BS.) Musculoskeletal: No tenderness Integumentary: No rashes Neurological: Normal gait, Normal speech, Normal strength at 5/5 x4 extr, Normal tone, Normal affect Lymphatics: No axilla or inguinal lymphadenopathy - Studies Laboratory Data (last 24 hrs) 03/04/19 18:05: Creatinine 1.27 03/04/19 18:05: WBC 8.2, Hgb 12.7, Hct 38.3, Plt Count 223 03/04/19 18:05: Sodium 139, Potassium 4.3, BUN 20 H, Creatinine 1.23, Glucose 123 H, Total Bilirubin 0.5, AST 17, ALT 25, Alkaline Phosphatase 93, Lipase 128 Assessment and Plan - Problems (Diagnosis) (1) Bowel obstruction Current Visit: Yes Status: Acute Plan: FROM VENTRAL COMPLICATED HERNIA. SHE NEEDS SURGERY AND WE CALLED DR. PEREZ TO HELP HE HAS DONE THIS BEFORE FOR HER. HE HAS ACCEPTED THE PATIENT AND WE HAVE STARTED THE PROCESS FOR [facility]. TALKED TO DAUGHTER AND PATIENT. Qualifiers: Intestinal obstruction type: obstruction due to adhesions - Advance Directives Does patient have a Living Will: No Does patient have a Durable POA for Healthcare: No
[2019-03-05 13:30] LABS: MPV 7.3 fL (7.6-11.3)
--- NOTE | 2019-03-05 15:02 | CON ---
Reason For Consultation: Small bowel obstruction. History Of Present Illness: Patient is a 73-year-old female with recurrent small bowel obstruction. Came in with a 2-day history of diffuse abdominal crampy pain associated with nausea and vomiting. No diarrhea or constipation. She has not had a bowel movement in a couple of days. She is this morn ing passing gas however. She has had a complex ventral hernia. Following the surgery at [facility] and she has never had a repaired and she would be a very high risk surgical patient to have s urgery done down here. She denies any sore throat, runny nose, cough, headaches, or dizziness. No c hest pain. No fever or chills. Review of Systems: Otherwise unremarkable. Past Medical History: Significant for arthritis, hypertension, hypercholesterolemia, bowel obstructi on, anxiety. Past Surgical History: Exploratory laparotomy with colostomy and reversal of the colostomy, bladder mesh removal, hernia repair and hysterectomy. Allergies: MORPHINE. PATIENT DOES NOT SMOKE OR DRINK. Family History: Noncontributory. Physical Examination: Vital Signs: Currently stable. General: She is afebrile. She is awake, alert, and oriented x3. Head and Neck: Cranial nerves 2 through 12 are grossly within normal limits. No neck masses. No JV D. Throat clear. Neck is supple. Chest: Clear. Heart: S1, S2. Abdomen: Soft, slightly distended. Positive bowel sounds. No peritonitis. Multiple ventral hernia s appreciated. They are not tense, red. There is minimal tenderness. No rigidity. No guarding. N o rebound. Extremity: Adequately perfused. Nontender. Neuro: Nonfocal. Laboratory Data: White count is normal with a slight left shift. Chemistry reviewed, essentially wi thin normal limits. CT of the abdomen and pelvis reviewed as well as abdominal x-ray. CT shows comp [place] ventral hernia is noted without significant change since comparative studies, mild mechanical sma ll bowel obstruction. Left-sided small bowel loops is likely present related to this and then abdomi nal x-ray done today does not show any evidence of bowel obstruction. Assessment: 73-year-old female with multiple medical problems, likely partial small bowel obstructio n with a complex abdominal wall. Recommendations: Continue n.p.o., NG tube, IV fluids, IV antibiotics. Discussed the case with Dr. Dominic cash, who is going to try to transfer the patient to [facility] and get definitive repair of these her nias as she has had multiple recurrent admissions for this. There is no need for any acute surgical intervention right now. Patient is clinically slowly improving. /MODL Voice ID: [id number] Report ID: [id number]
[2019-03-05 15:14] LABS: Platelet Estimate ADEQ
[2019-03-05] MEDS: PROMETHAZINE INJ 25 MG/ML AMP IV PRN ×3 (18:09→23:04)
[2019-03-05] MEDS: FENTANYL CITR 100 MCG/2 ML IV PRN ×2 (18:14→21:47)
--- NOTE | 2019-03-05 18:35 | RAD REPORT ---
EXAM DESCRIPTION: [place] Single View03/05/2019 6:26 pm CLINICAL HISTORY: Device placement nasogastric tube placement IMPRESSION: Nasogastric tube has been placed well into the stomach
[2019-03-05 23:24] VITALS: O2SAT 93
[2019-03-06] MEDS: PROMETHAZINE INJ 25 MG/ML AMP IV PRN ×4 (00:57→08:24)
[2019-03-06] MEDS: FENTANYL CITR 100 MCG/2 ML IV PRN ×2 (02:21→06:33)
[2019-03-06] MEDS: ONDANSETRON 4 MG/2 ML VIAL IV PRN (02:23)
[2019-03-06] MEDS ORDERED: LORazepam 2 MG/ML VIAL IV ONE (08:07)
[2019-03-06] MEDS ORDERED: LORazepam 2 MG/ML VIAL IV PRN (08:09)
--- NOTE | 2019-03-06 08:17 | RAD REPORT ---
EXAM DESCRIPTION: RAD - Abdomen W Erect - 03/06/2019 5:31 am CLINICAL HISTORY: SBO Pain COMPARISON: Abdomen W Erect dated 03/04/2019; Chest Single View dated 03/05/2019 FINDINGS: The bowel gas pattern is non-obstructive. No evidence of free air or pneumatosis. Enteric tube is in the stomach. Postsurgical clips are seen throughout the abdomen.
[2019-03-06] MEDS ORDERED: ENOXAPARIN 40 MG/0.4 ML SQ SCH (09:00)
[2019-03-06 10:58] VITALS: BP 185/95; TEMP 98
--- NOTE | 2019-03-06 23:12 | DS ---
Date of Discharge: 03/06/2019 Final Diagnoses: Bowel obstruction, large ventral hernia. Secondary Diagnosis: History of chronic obstructive pulmonary disease. Hospital Course: Patient who is a 73-year-old lady, comes in with bowel obstruction. We had an NG t ube with low intermittent suction placement. I saw her in the morning. The day before yesterday, manan rene was very stable and comfortable and I was waiting for the daughter in which we discussed about poss ible surgery. We decided to send her to [place] with Dr. Lopez because she has been to Dr. Delmer madrid before for previous surgeries in the abdomen. In the afternoon, somehow the suction machine abundio t working and nurses did not realize until she started to vomit. I was called and I asked for a stat abdominal x-ray which showed good placement of NG tube. Then I asked the nurses to check the suctio n machine. By that time, they were already trying to fix the machine. After machine was fixed, she started to have a large amount of drainage coming out of the stomach and intestines. Patient stayed stable after that, but continued to vomit off and on which is what made her very nervous, so I asked him to give her Ativan IV p.r.n. for anxiety. Patient today was transferred to Dr. Lopez at [facility] for further evaluation and possible surgery. SONAM/JEISON Voice ID: [id number] Report ID: [id number]
== END 2019-03-06 10:50 | disposition short-term general hospital (02) | DRG 395 ==
LOC: ER 17:50 → ERHOLD 19:29 → 2ND 20:48
PROVIDERS: ADMIT Internal Medicine; ATTEND Internal Medicine
DX: K43.6 Other and unspecified ventral hernia with obstruction, without gangrene (principal); J44.9 Chronic obstructive pulmonary disease, unspecified
CPT/HCPCS: 36415; 71045; 74019; 74177; 80048; 80076; 81003; 83690; 85025; 85049; 96361; 96374; 96375; 99285; J1170; J1650; J2405; J2550; J2930; J3010; J7030; J7799; Q9967

== ENCOUNTER 2019-05-09 07:40 | Observation (INO) | payer OTHER ==
[2019-05-09] MEDS ORDERED: ALBUTEROL 2.5 MG/3 ML NEB SOL ONE (08:16)
[2019-05-09] MEDS ORDERED: ALBUTEROL INHALER 60 PUFF/8 GM IH ONE (08:30)
--- NOTE | 2019-05-09 08:42 | RAD REPORT ---
EXAM DESCRIPTION: RAD - Chest Single View - 05/09/2019 8:28 am CLINICAL HISTORY: difficulty breathing Chest pain. COMPARISON: Chest Single View dated 03/05/2019; Chest Single View dated 03/04/2019; Chest Single View dated 07/31/2018; Abdomen 1 View (KUB) dated 01/28/2018 FINDINGS: Portable technique limits examination quality. Mild interstitial prominence is seen bilaterally which may indicate mild interstitial pulmonary edema . Mild cardiomegaly. No displaced fractures. IMPRESSION: Mild CHF suspected.
[2019-05-09 09:39] LABS: Albumin 3.2 g/dL (3.4-5.0); Bilirubin Total 0.4 mg/dL (0.2-1.0); Ferritin 12.9 ng/mL (8-388); Protein, Total 7.1 g/dL (6.4-8.2)
[2019-05-09 09:59] LABS: Troponin (Emerg Dept Use Only) 0.06 ng/mL (0.0-0.045)
[2019-05-09 10:41] LABS: Absolute Lymphocytes (CBC) 1.2 K/uL (0.7-4.9); Basophils % 0.3 % (0-1.3); Hematocrit 33.7 % (36.0-45.0); Lymphocytes % 14.3 % (15.3-44.8); MPV 7.3 fL (7.6-11.3); RBC Red Blood Cell Count 3.97 M/uL (3.86-4.86)
--- NOTE | 2019-05-09 11:06 | EDPHYS ---
Physician Documentation [facility] Name: Mireya Pike Age: 73 yrs Sex: Female : 1945 Arrival Date: 05/09/2019 Time: 07:45 Bed 6 Private MD: ED Physician Rosales Dsouza HPI: 05/08 08:01 This 73 yrs old Female presents to ER via EMS with complaints of Shortness Of ps1 Breath. 08:01 Patient has had respiratory symptoms for 2 weeks. Reportedly new onset asthma 2 weeks ps1 ago and was prescribed Breo. Called EMS this morning for difficulty breathing and respiratory distress. Was given Albuterol/Atrovent. Improved. No fever. No reported contacts. COVID-19 endemic area. . Historical: - Allergies: 08:10 Morphine; tw2 - Home Meds: 09:20 carvedilol 25 mg Oral tab 1 tab 2 times per day [Active]; losartan 25 mg Oral tab 1 tab tw2 once daily [Active]; omeprazole 20 mg Oral cpDR 1 cap once daily [Active]; Myrbetriq 50 mg oral Tb24 1 tab once daily [Active]; Breo Ellipta 200-25 mcg/dose inhalation dsdv 1 puff once daily [Active]; albuterol sulfate 90 mcg/actuation Inhl HFAA 1 puff as needed up to 4 times a day [Active]; paroxetine HCl 10 mg Oral tab 1 tab nightly [Active]; - PMHx: 08:10 Anxiety; bowel obstruction; High Cholesterol; Hypertension; incontinence; GERD; tw2 Arthritis; - PSHx: 08:10 colostomy reversal; bladder mesh removal; Colostomy; Hernia repair; Hysterectomy; tw2 - Social history:: Smoking status: . ROS: 08:09 Constitutional: Negative for fever, chills, and weight loss, Eyes: Negative for injury, ps1 pain, redness, and discharge, Cardiovascular: Negative for chest pain, palpitations, and edema, Abdomen/GI: Negative for abdominal pain, nausea, vomiting, diarrhea, and constipation, MS/Extremity: Negative for injury and deformity, Skin: Negative for injury, rash, and discoloration, Neuro: Negative for headache, weakness, numbness, tingling, and seizure. 08:09 Respiratory: Positive for cough, wheezing, expiratory. Exam: 08:09 Constitutional: This is a well developed, well nourished patient who is awake, alert, ps1 and in no acute distress. Head/Face: Normocephalic, atraumatic. Eyes: Pupils equal round and reactive to light, extra-ocular motions intact. Lids and lashes normal. Conjunctiva and sclera are non-icteric and not injected. Chest/axilla: Normal chest wall appearance and motion. Nontender with no deformity. No lesions are appreciated. Cardiovascular: Regular rate and rhythm. No gallops, murmurs, or rubs. Normal PMI, no JVD. No pulse deficits. 08:09 Respiratory: mild respiratory distress is noted, Respirations: labored breathing, Breath sounds: wheezing: expiratory that is mild. Vital Signs: 07:41 BP 163 / 97; Pulse 90; Resp 19; Temp 97.8(O); Pulse Ox 99% on R/A; Weight 78.02 kg (R); tw2 Height 5 ft. 0 in. (152.40 cm) (R); Pain 0/10; 09:13 BP 122 / 82; Pulse 73; Resp 17; Pulse Ox 95% on R/A; tw2 10:15 BP 167 / 95; Pulse 84; Resp 17; Pulse Ox 95% on R/A; tw2 11:15 BP 170 / 90; Pulse 78; Resp 17; Pulse Ox 96% on R/A; tw2 12:00 BP 172 / 108; Pulse 72; Resp 15; Pulse Ox 96% on R/A; tw2 13:00 BP 172 / 72; Pulse 82; Resp 17; Pulse Ox 97% on R/A; tw2 14:00 BP 156 / 72; Pulse 81; Resp 18; Pulse Ox 97% on R/A; tw2 15:00 BP 144 / 110; Pulse 83; Resp 17; Pulse Ox 97% on R/A; tw2 16:04 BP 174 / 97; Pulse 87; Resp 19; Temp 97.9; Pulse Ox 98% on R/A; tw2 16:30 BP 166 / 82; Pulse 80; Resp 17; Pulse Ox 97% on R/A; tw2 07:41 Body Mass Index 33.59 (78.02 kg, 152.40 cm) tw2 MDM: 07:54 Patient medically screened. ps1 14:17 Data reviewed: vital signs, nurses notes, lab test result(s), radiologic studies, and ps1 as a result, I will admit patient. 05/08 07:57 Order name: CBC with Diff; Complete Time: 10:59 ps1 05/08 07:57 Order name: CMP; Complete Time: 09:47 ps1 05/08 07:57 Order name: Ferritin; Complete Time: 09:47 ps1 05/08 07:57 Order name: Misc. Lab Test ps1 05/08 08:08 Order name: Influenza Screen (a \T\ B); Complete Time: 09:47 ps1 05/08 09:23 Order name: BNP; Complete Time: 10:05 ps1 05/08 09:23 Order name: Troponin (emerg Dept Use Only); Complete Time: 10:05 ps1 05/08 12:51 Order name: Basic Metabolic Panel EDMS 05/08 12:51 Order name: Basic Metabolic Panel EDMS 05/08 12:51 Order name: CBC with Automated Diff EDMS 05/08 12:51 Order name: CBC with Automated Diff EDMS 05/08 12:51 Order name: NT PRO-BNP EDMS 05/08 12:51 Order name: NT PRO-BNP EDMS 05/08 12:51 Order name: Troponin I EDMS 05/08 07:57 Order name: CXR XRAY; Complete Time: 09:22 ps1 05/08 09:25 Order name: Labs - recollect needed: recollect cbc; Complete Time: 10:13 eb 05/08 12:02 Order name: Diet Heart Healthy; Complete Time: 12:02 iw 05/08 12:51 Order name: Low Sodium EDMS 05/08 12:51 Order name: Troponin I; Complete Time: 14:48 EDMS 05/08 12:51 Order name: Troponin I EDMS Administered Medications: 09:08 Drug: Albuterol 2.5 mg Route: Inhalation; tw2 09:28 Drug: Albuterol 2.5 mg {Note: pt self admistered per instructions..} Route: Inhalation; tw2 09:48 Drug: Albuterol 2.5 mg {Note: pt self admistered per instructions.} Route: Inhalation; tw2 09:58 Follow up: Response: No adverse reaction; No change in condition tw2 Disposition: 05/09/19 11:05 Hospitalization ordered by Olivier Dent for Inpatient Admission. Preliminary diagnosis are Difficulty breathing, Acute CHF, Abnormal EKG, COVID-19, Person Under Investigation. - Bed requested for Telemetry/MedSurg (Inpatient). - Status is Inpatient Admission. tw2 - Condition is Fair. - Problem is an acute exacerbation. - Symptoms have improved. Signatures: Dispatcher [employer] EDMS Belen Duran RN RN tw2 Rosales Dsouza MD MD ps1 Nadira Luna Corrections: (The following items were deleted from the chart) 12:57 11:05 Hospitalization Ordered by Olivier Dent MD for Inpatient Admission. Preliminary eb diagnosis is Difficulty breathing; Acute CHF; Abnormal EKG; COVID-19, Person Under Investigation. Bed requested for Telemetry/MedSurg (Inpatient). Status is Inpatient Admission. Condition is Fair. Problem is an acute exacerbation. Symptoms have improved. ps1 13:15 12:57 05/09/2019 11:05 Hospitalization Ordered by Olivier Dent MD for Inpatient eb Admission. Preliminary diagnosis is Difficulty breathing; Acute CHF; Abnormal EKG; COVID-19, Person Under Investigation. Bed requested for Telemetry/MedSurg (Inpatient). Status is Inpatient Admission. Condition is Fair. Problem is an acute exacerbation. Symptoms have improved. eb 16:54 13:15 05/09/2019 11:05 Hospitalization Ordered by Olivier Dent MD for Inpatient tw2 Admission. Preliminary diagnosis is Difficulty breathing; Acute CHF; Abnormal EKG; COVID-19, Person Under Investigation. Bed requested for Telemetry/MedSurg (Inpatient). Status is Inpatient Admission. Condition is Fair. Problem is an acute exacerbation. Symptoms have improved. eb
--- NOTE | 2019-05-09 11:06 | ER ---
Nurse's Notes [facility] Name: Mireya Pike Age: 73 yrs Sex: Female : 1945 Arrival Date: 05/09/2019 Time: 07:45 Bed 6 Private MD: Diagnosis: Difficulty breathing;Acute CHF;Abnormal EKG;COVID-19, Person Under Investigation Presentation: 05/08 07:41 Chief complaint: EMS states: pt is 73 yr old from home, states she was dx with asthma a tw2 few weeks ago, she states she was sob yesterday, it got worse yesterday and through the night it got worse last night, initially had expiratory wheezing, was 93 %on RA, we gave an a\\T\\a tx and was 99%, afebrile, no recent travel or cough. Coronavirus screen: The patient has NOT traveled to a country currently being monitored by the CDC within the last 14 days. Ebola Screen: Patient denies travel to an Ebola-affected area in the 21 days before illness onset. Initial Sepsis Screen: Does the patient meet any 2 criteria? No. Patient's initial sepsis screen is negative. Does the patient have a suspected source of infection? No. Patient's initial sepsis screen is negative. Risk Assessment: Do you want to hurt yourself or someone else? Patient reports no desire to harm self or others. 07:41 Method Of Arrival: EMS: [facility] tw2 07:41 Acuity: TERESE 3 tw2 07:41 Onset of symptoms was May 08, 2019. tw2 Triage Assessment: 07:41 General: Appears in no apparent distress. Behavior is calm, cooperative, appropriate tw2 for age. Pain: Denies pain. Respiratory: Reports shortness of breath at rest on exertion Onset: The symptoms/episode began/occurred yesterday, the patient has moderate shortness of breath. 07:41 EENT: No signs and/or symptoms were reported regarding the EENT system. Neuro: Level of tw2 Consciousness is awake, alert, obeys commands, Oriented to person, place, time, situation. Cardiovascular: Denies chest pain, Heart tones S1 S2 Capillary refill < 3 seconds Patient's skin is warm and dry. Respiratory: Reports shortness of breath Airway is patent Respiratory effort is even, unlabored, Respiratory pattern is symmetrical, tachypnea Denies cough, pain with respiration. GI: No signs and/or symptoms were reported involving the gastrointestinal system. Abdomen is round non-distended, Bowel sounds present X 4 quads. : No signs and/or symptoms were reported regarding the genitourinary system. Derm: No signs and/or symptoms reported regarding the dermatologic system. Musculoskeletal: Circulation, motion, and sensation intact. Range of motion: intact in all extremities. Historical: - Allergies: 08:10 Morphine; tw2 - Home Meds: 09:20 carvedilol 25 mg Oral tab 1 tab 2 times per day [Active]; losartan 25 mg Oral tab 1 tab tw2 once daily [Active]; omeprazole 20 mg Oral cpDR 1 cap once daily [Active]; Myrbetriq 50 mg oral Tb24 1 tab once daily [Active]; Breo Ellipta 200-25 mcg/dose inhalation dsdv 1 puff once daily [Active]; albuterol sulfate 90 mcg/actuation Inhl HFAA 1 puff as needed up to 4 times a day [Active]; paroxetine HCl 10 mg Oral tab 1 tab nightly [Active]; - PMHx: 08:10 Anxiety; bowel obstruction; High Cholesterol; Hypertension; incontinence; GERD; tw2 Arthritis; - PSHx: 08:10 colostomy reversal; bladder mesh removal; Colostomy; Hernia repair; Hysterectomy; tw2 - Social history:: Smoking status: . Screenin:11 Abuse screen: Denies threats or abuse. Nutritional screening: No deficits noted. tw2 Tuberculosis screening: No symptoms or risk factors identified. Fall Risk None identified. Assessment: 07:41 General: Appears in no apparent distress. Behavior is calm, cooperative, appropriate tw2 for age. Pain: Denies pain. Neuro: Level of Consciousness is awake, alert, obeys commands, Oriented to person, place, time, situation. Respiratory: Airway is patent Respiratory effort is even, unlabored, Respiratory pattern is regular, symmetrical, Breath sounds are clear bilaterally. Onset: The symptoms/episode began/occurred yesterday. GI: No signs and/or symptoms were reported involving the gastrointestinal system. Abdomen is round non-distended, Bowel sounds present X 4 quads. : No signs and/or symptoms were reported regarding the genitourinary system. EENT: No signs and/or symptoms were reported regarding the EENT system. Derm: No signs and/or symptoms reported regarding the dermatologic system. Skin is intact, Skin is pale. Musculoskeletal: Range of motion: intact in all extremities. 08:47 Reassessment: pt placed on isolation precautions per Dr. Dsouza orders. hospital ppe tw2 protocols initiated and followed at this time. pt agrees to wear surgical face mask at this time and while in our facilty. pt cooperative and agreeable. states "we got to do what we got to do". 09:00 Reassessment: Patient appears in no apparent distress at this time. No changes from tw2 previously documented assessment. Patient and/or family updated on plan of care and expected duration. Pain level reassessed. 09:24 Cardiovascular: Rhythm is regular. tw2 09:55 Reassessment: pt instructed of plan of care and procedures, pt agreeable. pt given PO tw2 fluids at this time. pt given bedpan,wipes and trash can, pt agreeable and understand use. 10:15 Reassessment: Patient appears in no apparent distress at this time. No changes from tw2 previously documented assessment. Patient and/or family updated on plan of care and expected duration. Pain level reassessed. 11:15 Reassessment: Patient appears in no apparent distress at this time. No changes from tw2 previously documented assessment. Patient and/or family updated on plan of care and expected duration. Pain level reassessed. 12:15 Reassessment: Patient appears in no apparent distress at this time. No changes from tw2 previously documented assessment. Patient and/or family updated on plan of care and expected duration. Pain level reassessed. 13:00 Reassessment: Patient appears in no apparent distress at this time. No changes from tw2 previously documented assessment. Patient and/or family updated on plan of care and expected duration. Pain level reassessed. 13:33 Reassessment: [facility], pt is approved for testing, PUI# [id number], lab notified. 14:07 Reassessment: Patient appears in no apparent distress at this time. No changes from tw2 previously documented assessment. Patient and/or family updated on plan of care and expected duration. Pain level reassessed. pt states "i just want to use a phone once i get to my room, but i am feeling so much better", pt given sandwich, chips, and drink given at this time. Patient states symptoms have improved. 15:00 Reassessment: Patient appears in no apparent distress at this time. No changes from tw2 previously documented assessment. Patient and/or family updated on plan of care and expected duration. Pain level reassessed. 16:00 Reassessment: Patient appears in no apparent distress at this time. No changes from tw2 previously documented assessment. Patient and/or family updated on plan of care and expected duration. Pain level reassessed. 16:30 Reassessment: Patient appears in no apparent distress at this time. No changes from tw2 previously documented assessment. Patient and/or family updated on plan of care and expected duration. Pain level reassessed. Vital Signs: 07:41 BP 163 / 97; Pulse 90; Resp 19; Temp 97.8(O); Pulse Ox 99% on R/A; Weight 78.02 kg (R); tw2 Height 5 ft. 0 in. (152.40 cm) (R); Pain 0/10; 09:13 BP 122 / 82; Pulse 73; Resp 17; Pulse Ox 95% on R/A; tw2 10:15 BP 167 / 95; Pulse 84; Resp 17; Pulse Ox 95% on R/A; tw2 11:15 BP 170 / 90; Pulse 78; Resp 17; Pulse Ox 96% on R/A; tw2 12:00 BP 172 / 108; Pulse 72; Resp 15; Pulse Ox 96% on R/A; tw2 13:00 BP 172 / 72; Pulse 82; Resp 17; Pulse Ox 97% on R/A; tw2 14:00 BP 156 / 72; Pulse 81; Resp 18; Pulse Ox 97% on R/A; tw2 15:00 BP 144 / 110; Pulse 83; Resp 17; Pulse Ox 97% on R/A; tw2 16:04 BP 174 / 97; Pulse 87; Resp 19; Temp 97.9; Pulse Ox 98% on R/A; tw2 16:30 BP 166 / 82; Pulse 80; Resp 17; Pulse Ox 97% on R/A; tw2 07:41 Body Mass Index 33.59 (78.02 kg, 152.40 cm) tw2 ED Course: 07:41 Bed in low position. Call light in reach. Side rails up X2. monitoring specialist on. Pulse tw2 ox on. NIBP on. Warm blanket given. 07:45 Patient arrived in ED. tw2 07:48 Rosales Dsouza MD is Attending Physician. ps1 08:01 Triage completed. tw2 08:01 Arm band placed on. tw2 08:10 Belen Duran RN is Primary Nurse. tw2 08:29 CXR XRAY In Process Unspecified. EDMS 08:47 Droplet isolation initiated. tw2 08:47 Initial lab(s) drawn, Flu and/or RSV swab sent to lab. Covid swab sent. tw2 08:55 Missed attempt(s): 22 gauge in right antecubital area. blood collected, catheter bent tw2 and would not thread. Bleeding controlled, band aid applied, catheter tip intact. 09:09 Influenza Screen (a \\T\\ B) Sent. tw2 09:09 CMP Sent. tw2 09:09 CBC with Diff Sent. tw2 09:09 Misc. Lab Test Sent. tw2 09:09 Ferritin Sent. tw2 09:55 EKG done, by ED staff, reviewed by Rosales Dsouza MD. dh3 09:58 Lab(s) recollected, by me. Inserted saline lock: 22 gauge in left antecubital area, tw2 using aseptic technique. Blood collected. 11:03 Olivier Dent MD is Hospitalizing Provider. ps1 14:07 Repeat lab(s) drawn. tw2 15:11 unsuccessful attempt to give report at this time. tw2 16:08 Report given to AMANDEEP Leon. tw2 16:54 No provider procedures requiring assistance completed. Patient admitted, IV remains in tw2 place. Administered Medications: 09:08 Drug: Albuterol 2.5 mg Route: Inhalation; tw2 09:28 Drug: Albuterol 2.5 mg {Note: pt self admistered per instructions..} Route: Inhalation; tw2 09:48 Drug: Albuterol 2.5 mg {Note: pt self admistered per instructions.} Route: Inhalation; tw2 09:58 Follow up: Response: No adverse reaction; No change in condition tw2 Outcome: 11:05 Decision to Hospitalize by Provider. ps1 16:54 Patient left the ED. tw2 16:54 Admitted to Med/surg accompanied by nurse, via stretcher, room 418, with chart, Other tw2 pt wearing face mask 16:54 Condition: stable 16:54 Instructed on the need for admit. Addendum: 05/11/2019 09:32 Addendum: Other Pt notified of negative COVID-19 swab results. d m5 Signatures: Dispatcher [employer] Kayla Sandoval, RN RN dm5 Devora Seth RN RN iw Belen Duran RN RN tw2 Marlee Senior 3 Rosales Dsouza MD MD ps1 Corrections: (The following items were deleted from the chart) 05/08 10:34 09:11 Reassessment: Patient appears in no apparent distress at this time. No changes tw2 from previously documented assessment. Patient and/or family updated on plan of care and expected duration. Pain level reassessed. Patient is alert, oriented x 3, equal unlabored respirations, skin warm/dry/pink. tw2 10:43 07:41 Chief complaint: EMS states: pt is 73 yr old from home, states she was dx with tw2 asthma a few weeks ago, she states she was sob yesterday, it got worse yesterday and through the night it got worse last night, initially had expiratory wheezing, was 93 on RA, we gave an a\\T\\a tx and was 99%, afebrile, no recent travel or cough tw2 16:54 14:07 Reassessment: Patient appears in no apparent distress at this time. No changes tw2 from previously documented assessment. Patient and/or family updated on plan of care and expected duration. Pain level reassessed. pt states "i just want to use a phone once i get to my room, but i am feeling so much better" Patient states symptoms have improved. tw2 16:54 09:55 Reassessment: pt instructed of plan of care and procedures, pt agreeable. pt tw2 given PO fluids at this time. tw2 17:01 08:47 Reassessment: pt placed on isolation precautions per Dr. Dsouza orders. hospital tw2 ppe protocols initiated and followed at this time. pt agrees to wear surgical face mask at this time. pt cooperative and agreeable. states "we got to do what we got to do" tw2
[2019-05-09] MEDS ORDERED: ALBUTEROL 2.5 MG/3 ML NEB SOL NEB PRN ×2 (12:43→18:00)
[2019-05-09] MEDS ORDERED: ACETAMINOPHEN 500 MG TAB PO PRN (12:43)
[2019-05-09] MEDS ORDERED: IPRATROPIUM BROM 0.5MG/2.5ML NEB PRN ×2 (12:43→18:00)
[2019-05-09 16:49] VITALS: BMI 33.5
[2019-05-09] MEDS: FUROSEMIDE 20 MG/ 2ML VIAL IV SCH (17:02)
--- NOTE | 2019-05-09 17:31 | P.HP ---
Certification for Inpatient Patient admitted to: Inpatient With expected LOS: >2 Midnights Practitioner: I am a practitioner with admitting privileges, knowledge of patient current condition, hospital course, and medical plan of care. Services: Services provided to patient in accordance with Admission requirements found in Title 42 Section 412.3 of the Code of Federal Regulations Patient History Date of Service: 05/09/19 Reason for admission: DYSPNEA History of Present Illness: COBY IS AN ASTHMA PATIENT WITH OBESITY, ANXIETY AND HISTORY OF BOWEL OBSTRUCTION A FEW TIMES. SHE HAS DYSPNEA ON EXERSION BUT NO FEVER, NO COUGH, NO PAIN. SHE DOES NOT FOLLOW A GOOD DIET. I CALLED DAUGHTER TO DISCUSS. Allergies morphine Allergy (Verified 01/26/18 04:36) combative Home Medications: Fluticasone/Vilanterol [Breo Ellipta 200-25 Mcg INH] 1 puff IH DAILY 01/28/18 Omeprazole 1 tab PO DAILY 01/28/18 carvediloL [Carvedilol] 1 tab PO BID 01/28/18 Mirabegron [Myrbetriq] 1 tab PO DAILY 07/30/18 PARoxetine HCl [Paxil] 10 mg PO BEDTIME 07/30/18 - Past Medical/Surgical History Has patient received pneumonia vaccine in the past: Yes Diabetic: No -: HTN -: anxiety -: diverticulitis -: arthiritis -: acid reflux -: incontinence -: rupture of large intestine -: bladder mesh -: hernia repair -: hysterectomy -: colostomy -: colostomy reversal - Family History Father -: Hypertension, Diabetes Mother -: Hypertension, Diabetes - Social History Smoking Status: Never smoker Alcohol use: No CD- Drugs: No Caffeine use: No Place of Residence: Home Review of Systems 10-point ROS is otherwise unremarkable General: Weakness, Malaise Physical Examination - Vital Signs Temperature: 97.9 F Blood Pressure: 154/86 Pulse: 81 Respirations: 19 Pulse Ox (%): 98 - Physical Exam General: Alert, Mild distress, Obese HEENT: Atraumatic, PERRLA, Mucous membr. moist/pink, EOMI, Sclerae nonicteric Neck: Supple, 2+ carotid pulse no bruit, No LAD, Without JVD or thyroid abnormality Respiratory: Clear to auscultation bilaterally, Normal air movement Cardiovascular: Regular rate/rhythm, Normal S1 S2 Gastrointestinal: Normal bowel sounds, No tenderness Musculoskeletal: No tenderness Integumentary: No rashes Neurological: Normal gait, Normal speech, Normal strength at 5/5 x4 extr, Normal tone, Normal affect Lymphatics: No axilla or inguinal lymphadenopathy - Studies Laboratory Data (last 24 hrs) 05/09/19 09:58: WBC 8.6, Hgb 10.9 L, Hct 33.7 L, Plt Count 202 05/09/19 08:55: Sodium 142, Potassium 4.0, BUN 26 H, Creatinine 1.12, Glucose 88 , Total Bilirubin 0.4, AST 72 H, ALT 85 H, Alkaline Phosphatase 116 Microbiology Data (last 24 hrs): 05/09/19 08:57 Nasopharnyx Influenza Type A Antigen Screen - Final 05/09/19 08:57 Nasopharnyx Influenza Type B Antigen Screen - Final Assessment and Plan - Problems (Diagnosis) (1) Dyspnea Current Visit: Yes Status: Acute Qualifiers: Dyspnea type: dyspnea on exertion Qualified Code(s): R06.09 - Other forms of dyspnea (2) Diastolic CHF, acute Current Visit: Yes Status: Acute Plan: SHE IS HIGH FOR CHF BUT NOT FOR COVID 19. SHE HAS BEEN TESTED AND SO SHE WILL BE ON ISOLATION UNTIL RESULTS COME. I COUNSELLED HER AND SHE IS IN GOOD SPIRITS. SHE IS ON ASTHMA THREAPY ALREADY WITH BREO AND PROAIR AND ON LAST VISIT SHE WAS DOING GREAT. SHE WILL SEE POWER SYSTEM ENGINEER IN AM. I ASKED TO OPINE ON REMOVAL OF ISOLATION BUT WITH NEW CRITERIA OF ANY ONE WITH DYSPNEA, SHE ON ADMISSION HAD TO BE TESTED. - Advance Directives Does patient have a Living Will: No Does patient have a Durable POA for Healthcare: No
[2019-05-09] MEDS: ENOXAPARIN 40 MG/0.4 ML SQ SCH (17:45)
--- NOTE | 2019-05-09 17:45 | EKG ---
Test Date: 2019-05-09 Test Time: 09:55:52 Food Service Tray Attendant: IFEOMA MEASUREMENT RESULTS: Intervals: Rate: 80 WY: 140 QRSD: 136 QT: 430 QTc: 495 [place]: P: 59 WY: 140 QRS: 7 T: 142 INTERPRETIVE STATEMENTS: Normal sinus rhythm Left bundle branch block Abnormal ECG Compared to ECG 07/30/2018 09:12:06 No significant changes Electronically Signed On 05-09-19 17:44:37 CDT by Jayce Oh
[2019-05-09 18:16] LABS: MPV 7.2 fL (7.6-11.3)
[2019-05-09] MEDS: carvediloL 25 MG TAB PO SCH (20:38)
[2019-05-09] MEDS: POTASSIUM CL SA 10 MEQ TAB PO SCH (20:39)
[2019-05-09 20:49] LABS: Platelet Estimate ADEQ
[2019-05-09] MEDS ORDERED: PARoxetine HCL 10 MG TAB PO SCH (21:00)
[2019-05-10 06:14] LABS: Basophils % 0.4 % (0-1.3); Hematocrit 32.5 % (36.0-45.0); Lymphocytes % 32.5 % (15.3-44.8); MPV 7.3 fL (7.6-11.3); RBC Red Blood Cell Count 3.82 M/uL (3.86-4.86)
[2019-05-10 06:17] LABS: Potassium 4.2 mmol/L (3.5-5.1)
[2019-05-10] MEDS ORDERED: PANTOPRAZOLE 40MG TABLET PO SCH (07:30)
[2019-05-10] MEDS: FUROSEMIDE 20 MG/ 2ML VIAL IV SCH (08:02)
[2019-05-10] MEDS: POTASSIUM CL SA 10 MEQ TAB PO SCH (08:02)
[2019-05-10] MEDS: carvediloL 25 MG TAB PO SCH (08:02)
[2019-05-10] MEDS: ENOXAPARIN 40 MG/0.4 ML SQ SCH (08:02)
[2019-05-10] MEDS ORDERED: HOME MED 1 EA UNK (Omeprazole [Omeprazole] 1 TAB) PO SCH (09:00)
[2019-05-10] MEDS ORDERED: HOME MED 1 EA UNK (Mirabegron [Myrbetriq] 1 TAB) PO SCH (09:00)
[2019-05-10] MEDS ORDERED: HOME MED 1 EA UNK (Fluticasone/Vilanterol [Breo Ellipta 200-25 Mcg Inh] 1 PUFF) IH SCH (09:00)
--- NOTE | 2019-05-10 11:01 | P.PN ---
Subjective Date of Service: 05/10/19 Chief Complaint: DYSPNEA Subjective: Improving SHE ACTUALLY HAS NO SYMPTOMS OF CARDIAC OR RESPIRATORY ILLNESS. SHE HAS NO FEVER. Review of Systems 10-point ROS is otherwise unremarkable Physical Examination - Vital Signs Temperature: 97.2 F Blood Pressure: 155/79 Pulse: 79 Respirations: 18 Pulse Ox (%): 95 - Physical Exam General: Alert, In no apparent distress, Obese HEENT: Atraumatic, PERRLA, EOMI Neck: Supple, JVD not distended Respiratory: Clear to auscultation bilaterally, Normal air movement Cardiovascular: Regular rate/rhythm, Normal S1 S2 Gastrointestinal: Normal bowel sounds, No tenderness Musculoskeletal: No tenderness Integumentary: No rashes Neurological: Normal speech, Normal tone, Normal affect Lymphatics: No axilla or inguinal lymphadenopathy - Studies Microbiology Data (last 24 hrs): 05/09/19 08:57 Nasopharnyx Influenza Type A Antigen Screen - Final 05/09/19 08:57 Nasopharnyx Influenza Type B Antigen Screen - Final Medications List Reviewed: Yes Assessment And Plan - Current Problems (Diagnosis) (1) Dyspnea Current Visit: Yes Status: Acute Qualifiers: Dyspnea type: dyspnea on exertion Qualified Code(s): R06.09 - Other forms of dyspnea (2) Diastolic CHF, acute Current Visit: Yes Status: Acute Plan: SHE IS HIGH FOR CHF BUT NOT FOR COVID 19. SHE HAS BEEN TESTED AND SO SHE WILL BE ON ISOLATION UNTIL RESULTS COME. I COUNSELLED HER AND SHE IS IN GOOD SPIRITS. SHE IS ON ASTHMA THREAPY ALREADY WITH BREO AND PROAIR AND ON LAST VISIT SHE WAS DOING GREAT. SHE WILL SEE [facility] IN AM. I ASKED TO OPINE ON REMOVAL OF ISOLATION BUT WITH NEW CRITERIA OF ANY ONE WITH DYSPNEA, SHE ON ADMISSION HAD TO BE TESTED. I TALKED TO DAUGHTER. SHE TOLD ME THAT MOST OF HER CARE IS IN [facility]. SHE HAS BEEN TO [facility] TWICE IN LAST 3 YEARS AND HAS BEEN CLEARED FOR SURGERY AFTER STRESS TESTS. I AGREE THAT SHE DOES NOT HAVE ANY MAJOR CARDIAC ISSUES. SHE MAY HAVE MILD DIASTOLIC DYSFUNCTION. SHE DOES NOT FOLLOW DIET, DOES NOT LOSE WEIGHT, DOES NOT REMEMBER THAT SHE HAS BEEN TO CARDIOLOGISTS. SHE HAS EARLY DEMENTIA BUT NOT ENOUGH TO GIVE MEDICINES. DAUGHTER WANTS HER TO BE INDEPENDENT IN HER CARE BUT SHE IS QUITE NON COMPLIANT. I SUSPECT IF SHE COMES DOWN TO BMI OF 28 OR SO SHE WILL FEEL GREAT BUT SHE IS NOT ABLE TO.
[2019-05-10] MEDS ORDERED: ALBUTEROL INHALER 60 PUFF/8 GM IH SCH (14:00)
[2019-05-10] MEDS ORDERED: IPRATROPIUM BROM 0.5MG/2.5ML NEB SCH (16:00)
[2019-05-10] MEDS ORDERED: ALBUTEROL 2.5 MG/3 ML NEB SOL NEB SCH (16:00)
[2019-05-10 16:45] VITALS: O2SAT 96
[2019-05-10 18:06] VITALS: BP 150/73; TEMP 97.5
[2019-05-11] MEDS ORDERED: POTASSIUM CL SA 10 MEQ TAB PO SCH (09:00)
[2019-05-11] MEDS ORDERED: FUROSEMIDE 20 MG TABLET PO SCH (09:00)
--- NOTE | 2019-05-11 11:21 | P.CNS ---
Date of Consult: 05/11/19 Reason for Consult: Shortness of breath Chief Complaint: DYSPNEA History of Present Illness: Patient is 73 years of age with a history of obstructive airways disease all the patient denies any cardiopulmonary history apparently due to the dementia apparently she became acutely short of breath ended up here in the hospital. He has been taking inhalers at home no prior history of for cardiac disorders as some lower extremity edema patient's BNP was elevated denies any fever or cough no clinical evidence of sepsis Allergies morphine Allergy (Verified 01/26/18 04:36) combative Home Medications: Fluticasone/Vilanterol [Breo Ellipta 200-25 Mcg INH] 1 puff IH DAILY 01/28/18 Omeprazole 1 tab PO DAILY 01/28/18 carvediloL [Carvedilol] 1 tab PO BID 01/28/18 Mirabegron [Myrbetriq] 1 tab PO DAILY 07/30/18 PARoxetine HCl [Paxil] 10 mg PO BEDTIME 07/30/18 Furosemide [Lasix] 20 mg PO DAILY #30 tab 05/10/19 Potassium Chloride 10 meq PO DAILY #30 tablet.er 05/10/19 - Past Medical/Surgical History Diabetic: No -: HTN -: anxiety -: diverticulitis -: arthiritis -: acid reflux -: incontinence -: rupture of large intestine -: bladder mesh -: hernia repair -: hysterectomy -: colostomy -: colostomy reversal - Family History Father Medical History: Hypertension, Diabetes Mother Medical History: Hypertension, Diabetes - Social History Smoking Status: Never smoker Alcohol use: No CD- Drugs: No Caffeine use: No Place of Residence: Home Review of Systems 10-point ROS is otherwise unremarkable General: Weakness Respiratory: Shortness of Breath Physical Examination Temp Pulse Resp BP Pulse Ox 97.5 F 88 18 150/73 H 95 05/10/19 16:00 05/10/19 16:00 05/10/19 16:00 05/10/19 16:00 05/10/19 16:00 General: Alert, Oriented x3 HEENT: Atraumatic Neck: Supple Respiratory: Clear to auscultation bilaterally Cardiovascular: No edema, Normal S1 S2 Gastrointestinal: Normal bowel sounds, Non-distended - Problems (1) Shortness of breath Status: Acute Plan: Patient is 73 years of age admitted with acute shortness of breath she has a history of obstructive airways disease and not mention the use of inhalers pro was confirmed by a primary care doctor denies any fever or cough normal white count the [employer] significantly elevated mild interstitial changes on chest x-ray may have underlying diastolic dysfunction patient is on Coreg and Lasix patient can be discharged home with outpatient workup to take extra doses of Lasix for now may benefit from low-dose spironolactone instead of Lasix and potassium
== END 2019-05-10 19:39 | disposition home or self-care (01) ==
LOC: ER 07:40 → ERHOLD 12:44 → 4TH 16:19
PROVIDERS: ADMIT Internal Medicine; ATTEND Internal Medicine
DX: R06.09 Other forms of dyspnea (principal); I12.9 Hypertensive chronic kidney disease with stage 1 through stage 4 chronic kidney disease, or unspecified chronic kidney disease; I50.31 Acute diastolic (congestive) heart failure; J45.909 Unspecified asthma, uncomplicated; F03.90 Unspecified dementia, unspecified severity, without behavioral disturbance, psychotic disturbance, mood disturbance, and anxiety; I44.7 Left bundle-branch block, unspecified; R94.31 Abnormal electrocardiogram [ECG] [EKG]; F41.9 Anxiety disorder, unspecified; M19.90 Unspecified osteoarthritis, unspecified site; K21.9 Gastro-esophageal reflux disease without esophagitis; Z79.899 Other long term (current) drug therapy
CPT/HCPCS: 93005; 85025 ×2; 80048; 36415; 85049; 84484 ×3; 82728; 80053; 83880 ×2; 87804 ×2; 71045; 99285; U0001; J1940 ×2; J1650 ×2; G0378 ×3

== ENCOUNTER 2019-06-11 19:29 | Inpatient (IN) | payer OTHER ==
[2019-06-11] MEDS ORDERED: ONDANSETRON 4 MG/2 ML VIAL ONE (20:39)
[2019-06-11] MEDS ORDERED: PANTOPRAZOLE 40 MG INJ ONE (20:39)
[2019-06-11] MEDS ORDERED: NA CHLORIDE 0.9% 500 ML ONE (20:39)
[2019-06-11] MEDS ORDERED: MEPERIDINE HCL 25 MG/0.5 ML ONE (20:39)
[2019-06-11 20:40] LABS: Absolute Lymphocytes (CBC) 2.2 K/uL (0.7-4.9); Basophils % 0.4 % (0-1.3); Hematocrit 41.9 % (36.0-45.0); Lymphocytes % 19.5 % (15.3-44.8); MPV 6.8 fL (7.6-11.3); RBC Red Blood Cell Count 4.93 M/uL (3.86-4.86)
[2019-06-11 20:56] LABS: Urine Culture Reflex Order REFLEXED
[2019-06-11 20:57] LABS: Urine Blood 1+ (NEG); Urine Glucose NEGATIVE (NEG); Urine Protein TRACE (NEG); Urine Specific Gravity >1.030 (1.005-1.030)
[2019-06-11 20:57] LABS: Albumin 3.8 g/dL (3.4-5.0); Bilirubin Direct 0.1 mg/dL (0-0.2); Bilirubin Total 0.6 mg/dL (0.2-1.0); Potassium 4.6 mmol/L (3.5-5.1); Protein, Total 8.3 g/dL (6.4-8.2)
[2019-06-11 21:06] LABS: Urine Bacteria 20-50 /HPF (<20); Urine Mucus 2+ /HPF (NONE SEEN)
[2019-06-11] MEDS ORDERED: PROMETHAZINE INJ 25 MG/ML AMP ONE (21:45)
[2019-06-11] MEDS ORDERED: NA CHLORIDE 0.9% 1,000 ML ONE (22:07)
--- NOTE | 2019-06-11 23:15 | ER ---
Nurse's Notes [facility] Name: Mireya Pike Age: 73 yrs Sex: Female : 1945 Arrival Date: 06/11/2019 Time: 19:31 Bed 16 Private MD: Diagnosis: Nausea and vomiting;Small bowel obstruction Presentation: 06/10 19:44 Chief complaint: Patient states: she has been having stomach pain since this afternoon bb and has vomited x 3, denies diarrhea states pain is constant, does not radiate and currently is 10/10. Coronavirus screen: Proceed with normal triage. Ebola Screen: No symptoms or risks identified at this time. Initial Sepsis Screen: Does the patient meet any 2 criteria? No. Patient's initial sepsis screen is negative. Does the patient have a suspected source of infection? No. Patient's initial sepsis screen is negative. Risk Assessment: Do you want to hurt yourself or someone else? Patient reports no desire to harm self or others. Onset of symptoms was June 11, 2019. 19:44 Method Of Arrival: Ambulatory bb 19:44 Acuity: TERESE 3 bb Historical: - Allergies: 19:46 Morphine; bb - Home Meds: 23:55 albuterol sulfate 90 mcg/actuation Inhl HFAA 1 puff as needed up to 4 times a day mg2 [Active]; Breo Ellipta 200-25 mcg/dose inhalation dsdv 1 puff once daily [Active]; carvedilol 25 mg Oral tab 1 tab 2 times per day [Active]; losartan 25 mg Oral tab 1 tab once daily [Active]; Myrbetriq 50 mg Oral Tb24 1 tab once daily [Active]; omeprazole 20 mg Oral cpDR 1 cap once daily [Active]; paroxetine HCl 10 mg Oral tab 1 tab nightly [Active]; - PMHx: 23:55 Anxiety; Arthritis; bowel obstruction; GERD; High Cholesterol; Hypertension; mg2 incontinence; - Immunization history:: Adult Immunizations up to date. - Social history:: Smoking status: Patient denies any tobacco usage or history of. Screenin:51 Abuse screen: Denies threats or abuse. Denies injuries from another. Nutritional mg2 screening: No deficits noted. Tuberculosis screening: No symptoms or risk factors identified. Fall Risk IV access (20 points). Assessment: 20:49 General: Appears in no apparent distress. comfortable, Behavior is calm, cooperative. mg2 Pain: Complains of pain in abdomen. Neuro: Level of Consciousness is awake, alert, obeys commands, Oriented to person, place, time, situation. Cardiovascular: Capillary refill < 3 seconds Patient's skin is warm and dry. Respiratory: Airway is patent Respiratory effort is even, unlabored, Respiratory pattern is regular, symmetrical. GI: Pt is actively vomiting Bowel sounds present X 4 quads. Abd is soft and non tender Reports lower abdominal pain, vomiting. : No signs and/or symptoms were reported regarding the genitourinary system. EENT: No signs and/or symptoms were reported regarding the EENT system. Derm: Skin is intact, is healthy with good turgor, Skin is pink, warm \T\ dry. normal. Musculoskeletal: Circulation, motion, and sensation intact. Capillary refill < 3 seconds. 22:40 Reassessment: Patient appears in no apparent distress at this time. Patient and/or mg2 family updated on plan of care and expected duration. Pain level reassessed. Patient is alert, oriented x 3, equal unlabored respirations, skin warm/dry/pink. 23:25 Reassessment: Patient appears in no apparent distress at this time. Patient and/or mg2 family updated on plan of care and expected duration. Pain level reassessed. Patient is alert, oriented x 3, equal unlabored respirations, skin warm/dry/pink. 06/11 00:09 Reassessment: Patient appears in no apparent distress at this time. Patient and/or mg2 family updated on plan of care and expected duration. Pain level reassessed. Patient is alert, oriented x 3, equal unlabored respirations, skin warm/dry/pink. 00:35 Reassessment: called AMENA droantes of 2nd floor. said the primary nurse will yanet me mg2 back to receive the report. Vital Signs: 06/10 19:44 BP 155 / 92; Pulse 89; Resp 18 S; Temp 97.5(TE); Pulse Ox 98% on R/A; Weight 68.04 kg bb (R); Height 5 ft. 0 in. (152.40 cm) (R); Pain 10/10; 22:39 Pulse 98; Resp 18; Pulse Ox 98% on R/A; mg2 22:40 BP 170 / 79; mg2 23:25 Pulse 91; Resp 18; Pulse Ox 98% on R/A; mg2 23:27 BP 152 / 85; mg2 06/11 00:34 BP 161 / 94; Pulse 98; Resp 18; Temp 98; Pulse Ox 98% on R/A; mg2 06/10 19:44 Body Mass Index 29.29 (68.04 kg, 152.40 cm) bb ED Course: 06/10 19:31 Patient arrived in ED. ag3 19:45 Triage completed. bb 19:46 Arm band placed on Patient placed in waiting room, Patient notified of wait time. bb 20:20 Radiology exam delayed due to lab results not completed at this time. (BUN/Creatinine) nj IV insertion attempt and/or patient not having appropriate IV at this time. 20:21 Kd Perez, AMANDEEP is Primary Nurse. mg2 20:22 Luc Rose PA is PHCP. cp 20:22 Jeffrey Izaguirre MD is Attending Physician. cp 20:30 Inserted saline lock: 20 gauge in left antecubital area, using aseptic technique. Blood mg2 collected. 20:40 No provider procedures requiring assistance completed. mg2 21:15 CT Abd/Pelvis - IV Contrast Only In Process Unspecified. EDMS 23:13 Olivier Dent MD is Hospitalizing Provider. cp 23:26 Patient has correct armband on for positive identification. agriculture department chair on. Pulse mg2 ox on. NIBP on. Door closed. Warm blanket given. 23:26 NGT: inserted 16 Fr. via right nare. verified placement of air over stomach, verified mg2 return of gastric contents, to intermittent suction. Returned bile. Amount of gastric contents removed by suction 600ml. Patient tolerated well. Patient admitted, IV remains in place. Administered Medications: 20:39 Drug: Demerol - Meperidine 12.5 mg Route: IVP; Site: left antecubital; mg2 21:30 Follow up: Response: No adverse reaction; Marked relief of symptoms mg2 20:40 Drug: Zofran (Ondansetron) 4 mg Route: IVP; Site: left antecubital; mg2 21:30 Follow up: Response: No adverse reaction; Marked relief of symptoms mg2 20:40 Drug: ProTONIX 40 mg Route: IVP; Site: left antecubital; mg2 21:00 Follow up: Response: No adverse reaction; Marked relief of symptoms mg2 20:40 Drug: NS 0.9% 500 ml Route: IV; Rate: bolus; Site: left antecubital; mg2 21:20 Follow up: Response: No adverse reaction; IV Status: Completed infusion; IV Intake: mg2 500ml 21:50 Drug: Phenergan 25 mg Route: IVP; Site: left antecubital; mg2 22:30 Follow up: Response: No adverse reaction; Marked relief of symptoms; Nausea is mg2 decreased; Vomiting decreased 22:04 Drug: NS 0.9% 1000 ml Route: IV; Rate: 75 ml/hr; Site: left antecubital; mg2 06/11 00:34 Follow up: Response: No adverse reaction; IV Status: Infusion continued upon admission; mg2 IV Intake: 150ml 06/10 22:39 Drug: Demerol - Meperidine 12.5 mg Route: IVP; Site: left antecubital; mg2 23:30 Follow up: Response: No adverse reaction; Marked relief of symptoms; Pain is decreased; mg2 RASS: Alert and Calm (0) Intake: 21:20 IV: 500ml; Total: 500ml. mg2 06/11 00:34 IV: 150ml; Total: 650ml. mg2 Output: 00:39 Gastric: 1000ml (NGT); Total: 1000ml. mg2 Outcome: 06/10 23:14 Decision to Hospitalize by Provider. cp 06/11 01:12 Admitted to Med/surg accompanied by nurse, via wheelchair, room 225, with chart, Report mg2 called to AMANDEEP Morris Condition: stable Instructed on the need for admit, Demonstrated understanding of instructions. 01:22 Patient left the ED. mg2 Signatures: Dispatcher [employer] EDIrina Granado, RN RN Luc Dye PA PA cp Jordan, Nathan nj Gardose, Michele, RN RN mg2 Denise Mendiola ag3
--- NOTE | 2019-06-11 23:15 | EDPHYS ---
Physician Documentation [facility] Name: Mireya Pike Age: 73 yrs Sex: Female : 1945 Arrival Date: 06/11/2019 Time: 19:31 Bed 16 Private MD: ED Physician Jeffrey Izaguirre HPI: 06/10 20:41 This 73 yrs old Female presents to ER via Ambulatory with complaints of cp Abdominal Pain. 20:41 The patient presents with abdominal pain that is diffuse. Onset: The symptoms/episode cp began/occurred today. The symptoms do not radiate. Associated signs and symptoms: Pertinent positives: nausea and vomiting, Pertinent negatives: chest pain, constipation, diarrhea, fever, vomiting blood. The symptoms are described as constant. Severity of pain: in the emergency department the pain is actually worse moderately. Historical: - Allergies: 19:46 Morphine; bb - Home Meds: 23:55 albuterol sulfate 90 mcg/actuation Inhl HFAA 1 puff as needed up to 4 times a day mg2 [Active]; Breo Ellipta 200-25 mcg/dose inhalation dsdv 1 puff once daily [Active]; carvedilol 25 mg Oral tab 1 tab 2 times per day [Active]; losartan 25 mg Oral tab 1 tab once daily [Active]; Myrbetriq 50 mg Oral Tb24 1 tab once daily [Active]; omeprazole 20 mg Oral cpDR 1 cap once daily [Active]; paroxetine HCl 10 mg Oral tab 1 tab nightly [Active]; - PMHx: 23:55 Anxiety; Arthritis; bowel obstruction; GERD; High Cholesterol; Hypertension; mg2 incontinence; - Immunization history:: Adult Immunizations up to date. - Social history:: Smoking status: Patient denies any tobacco usage or history of. ROS: 20:42 Eyes: Negative for injury, pain, redness, and discharge. cp 20:42 Constitutional: Negative for body aches, chills, fever. 20:42 ENT: Negative for drainage from ear(s), ear pain, sore throat, difficulty swallowing, difficulty handling secretions. 20:42 Cardiovascular: Negative for chest pain. 20:42 Respiratory: Negative for cough, shortness of breath, wheezing. 20:42 Abdomen/GI: Positive for abdominal pain, nausea and vomiting, Negative for diarrhea, constipation, black/tarry stool, rectal bleeding. 20:42 Back: Negative for radiated pain. 20:42 : Negative for urinary symptoms, vaginal bleeding, vaginal discharge. 20:42 Neuro: Negative for altered mental status, headache, weakness. 20:42 All other systems are negative. Exam: 20:45 Head/Face: Normocephalic, atraumatic. cp 20:45 Constitutional: The patient appears in no acute distress, alert, awake, non-diaphoretic, non-toxic, well developed, well nourished, uncomfortable. 20:45 Eyes: Periorbital structures: appear normal, Conjunctiva: normal, no exudate, no injection, Sclera: no appreciated abnormality, Lids and lashes: appear normal, bilaterally. 20:45 ENT: External ear(s): are unremarkable, Nose: is normal, Mouth: Lips: moist, Oral mucosa: pink and intact, moist, Posterior pharynx: is normal, airway is patent. 20:45 Chest/axilla: Inspection: normal, Palpation: is normal, no crepitus, no tenderness. 20:45 Cardiovascular: Rate: normal, Rhythm: regular. 20:45 Respiratory: the patient does not display signs of respiratory distress, Respirations: normal, no use of accessory muscles, no retractions, labored breathing, is not present, Breath sounds: are clear throughout, no decreased breath sounds, no stridor, no wheezing. 20:45 Abdomen/GI: Inspection: distension, that is mild, Bowel sounds: active, all quadrants, Palpation: soft, in all quadrants, severe abdominal tenderness, in all quadrants, rebound tenderness, is not appreciated, voluntary guarding, is elicited in all quadrants. 20:45 Back: pain, is absent, ROM is normal. 20:45 Neuro: Orientation: to person, place \T\ time. Mentation: is normal, Motor: moves all fours. Vital Signs: 19:44 BP 155 / 92; Pulse 89; Resp 18 S; Temp 97.5(TE); Pulse Ox 98% on R/A; Weight 68.04 kg bb (R); Height 5 ft. 0 in. (152.40 cm) (R); Pain 10/10; 22:39 Pulse 98; Resp 18; Pulse Ox 98% on R/A; mg2 22:40 BP 170 / 79; mg2 23:25 Pulse 91; Resp 18; Pulse Ox 98% on R/A; mg2 23:27 BP 152 / 85; mg2 06/11 00:34 BP 161 / 94; Pulse 98; Resp 18; Temp 98; Pulse Ox 98% on R/A; mg2 06/10 19:44 Body Mass Index 29.29 (68.04 kg, 152.40 cm) bb MDM: 06/10 20:26 Patient medically screened. cp 20:30 Differential diagnosis: bowel obstruction, cholecystitis, Cholelithiasis, cp diverticulitis, non-specific abd pain, pancreatitis, Peptic Ulcer Disease, Perf. Duodenal Ulcer, Perf. Gastric Ulcer, Ureterolithiasis, urinary tract infection. 22:50 Data reviewed: vital signs, nurses notes, lab test result(s), radiologic studies, CT cp scan, I have discussed the patient's presentation/case with the attending Emergency Department Physician; and as a result, I will admit patient. 23:10 Physician consultation: Damion Alexander MD was called at 23:10, regarding consult, patient's condition. 23:14 Physician consultation: Olivier Dent MD was called at 23:15, was contacted at 23:15, cp regarding admission, to the telemetry unit. patient's condition. 06/10 20:14 Order name: Basic Metabolic Panel; Complete Time: 21:31 tw4 06/10 21:31 Interpretation: Normal except: GLUC 133; BUN 24; CRE 1.64; GFR 31. cp 06/10 20:14 Order name: CBC with Diff; Complete Time: 21:31 tw4 06/10 23:59 Interpretation: Normal except: WBC 11.3; RBC 4.93; MPV 6.8; PASHA% 74.4; NEUT A 8.4. 06/10 20:14 Order name: Creatinine for Radiology; Complete Time: 21:31 tw4 06/10 20:14 Order name: Hepatic Function; Complete Time: 21:31 tw4 06/10 23:59 Interpretation: Normal except: TP 8.3; GLOB 4.5; A/G 0.8. 06/10 20:14 Order name: Lipase; Complete Time: 21:31 tw4 06/10 20:28 Order name: Urine Microscopic Only; Complete Time: 21:31 06/10 20:48 Order name: Urine Dipstick--Ancillary (enter results); Complete Time: 21:31 ar5 06/10 20:59 Order name: Urine Culture EDUT 06/10 23:53 Order name: Basic Metabolic Panel EDUT 06/10 23:53 Order name: Basic Metabolic Panel EDUT 06/10 23:53 Order name: CBC with Automated Diff EDMS 06/10 23:53 Order name: CBC with Automated Diff EDUT 06/10 23:53 Order name: Lipase EDMS 06/10 23:53 Order name: Lipase EDUT 06/10 20:14 Order name: IV Saline Lock; Complete Time: 20:39 tw4 06/10 20:14 Order name: Labs collected and sent; Complete Time: 20:39 tw4 06/10 20:19 Order name: CT Abd/Pelvis - IV Contrast Only tw4 06/10 20:28 Order name: Urine Dipstick-Ancillary (obtain specimen); Complete Time: 20:47 cp 06/10 22:47 Order name: NG Tube; Complete Time: 23:24 cp 06/10 23:52 Order name: CONS Physician Consult EDUT 06/10 23:52 Order name: NPO EDUT 06/10 23:53 Order name: Liver (Hepatic) Function EDMS 06/10 23:53 Order name: Liver (Hepatic) Function EDMS Administered Medications: 20:39 Drug: Demerol - Meperidine 12.5 mg Route: IVP; Site: left antecubital; mg2 21:30 Follow up: Response: No adverse reaction; Marked relief of symptoms mg2 20:40 Drug: Zofran (Ondansetron) 4 mg Route: IVP; Site: left antecubital; mg2 21:30 Follow up: Response: No adverse reaction; Marked relief of symptoms mg2 20:40 Drug: ProTONIX 40 mg Route: IVP; Site: left antecubital; mg2 21:00 Follow up: Response: No adverse reaction; Marked relief of symptoms mg2 20:40 Drug: NS 0.9% 500 ml Route: IV; Rate: bolus; Site: left antecubital; mg2 21:20 Follow up: Response: No adverse reaction; IV Status: Completed infusion; IV Intake: mg2 500ml 21:50 Drug: Phenergan 25 mg Route: IVP; Site: left antecubital; mg2 22:30 Follow up: Response: No adverse reaction; Marked relief of symptoms; Nausea is mg2 decreased; Vomiting decreased 22:04 Drug: NS 0.9% 1000 ml Route: IV; Rate: 75 ml/hr; Site: left antecubital; mg2 06/11 00:34 Follow up: Response: No adverse reaction; IV Status: Infusion continued upon admission; mg2 IV Intake: 150ml 06/10 22:39 Drug: Demerol - Meperidine 12.5 mg Route: IVP; Site: left antecubital; mg2 23:30 Follow up: Response: No adverse reaction; Marked relief of symptoms; Pain is decreased; mg2 RASS: Alert and Calm (0) Disposition: 06/11 11:21 Co-signature as Attending Physician, Jeffrey Izaguirre MD I agree with the assessment and tw4 plan of care. Disposition: 06/11/19 23:14 Hospitalization ordered by Olivier Dent for Inpatient Admission. Preliminary diagnosis are Nausea and vomiting, Small bowel obstruction. - Bed requested for Telemetry/MedSurg (Inpatient). - Status is Inpatient Admission. mg2 - Condition is Stable. - Problem is new. - Symptoms have improved. Signatures: Dispatcher [employer] EDMS Irina Vazquez RN RN bb Sadaf Corral RN RN tl1 Luc Rose PA PA cp Wadley, Terrence, MD MD tw4 Kd Perez RN RN mg2 Corrections: (The following items were deleted from the chart) 00:24 06/10 23:14 Hospitalization Ordered by Olivier Dent MD for Inpatient Admission. tl1 Preliminary diagnosis is Nausea and vomiting; Small bowel obstruction. Bed requested for Telemetry/MedSurg (Inpatient). Status is Inpatient Admission. Condition is Stable. Problem is new. Symptoms have improved. cp 06/11 01:22 00:24 06/11/2019 23:14 Hospitalization Ordered by Olivier Dent MD for Inpatient mg2 Admission. Preliminary diagnosis is Nausea and vomiting; Small bowel obstruction. Bed requested for Telemetry/MedSurg (Inpatient). Status is Inpatient Admission. Condition is Stable. Problem is new. Symptoms have improved. tl1
[2019-06-11] MEDS: NA CHLORIDE 0.9% 1,000 ML IV SCH (23:45)
[2019-06-12] MEDS: FENTANYL CITR 100 MCG/2 ML IV PRN ×4 (00:30→20:41)
[2019-06-12] MEDS: ONDANSETRON 4 MG/2 ML VIAL IV PRN ×2 (00:32→06:34)
[2019-06-12] MEDS ORDERED: FENTANYL CITR 100 MCG/2 ML ONE (00:34)
[2019-06-12] MEDS ORDERED: ONDANSETRON 4 MG/2 ML VIAL ONE (00:34)
[2019-06-12 01:44] VITALS: BMI 34.4
[2019-06-12] MEDS: PROMETHAZINE INJ 25 MG/ML AMP IM PRN ×2 (02:26→08:16)
[2019-06-12 06:11] LABS: Albumin 3.2 g/dL (3.4-5.0); Bilirubin Direct 0.2 mg/dL (0-0.2); Bilirubin Total 0.7 mg/dL (0.2-1.0); Potassium 4.7 mmol/L (3.5-5.1); Protein, Total 7.2 g/dL (6.4-8.2)
[2019-06-12 06:26] LABS: Absolute Lymphocytes (CBC) 0.8 K/uL (0.7-4.9); Basophils % 0.2 % (0-1.3); Hematocrit 38.6 % (36.0-45.0); Lymphocytes % 8.7 % (15.3-44.8); RBC Red Blood Cell Count 4.55 M/uL (3.86-4.86)
[2019-06-12] MEDS ORDERED: PNEUMOCOCCAL VACCINE 0.5 ML IMVAC ONE (08:00)
--- NOTE | 2019-06-12 10:22 | RAD REPORT ---
EXAM DESCRIPTION: CT ABDOMEN PELVIS W CONTRAST CLINICAL HISTORY: ABD PAIN TECHNIQUE: Contiguous axial images obtained through the abdomen and pelvis following the uneventful administration of IV contrast. Coronal and sagittal reformatted images were provided. This exam was performed according to our departmental dose-optimization program, which includes autom ated exposure control, adjustment of the mA and/or kV according to patient size and/or use of iterati ve reconstruction technique. COMPARISON: 07/30/2018 FINDINGS: Lung bases: No focal consolidation. Small to moderate hiatal hernia. Liver: Unremarkable Gallbladder and biliary system: Unremarkable Pancreas: Unremarkable Spleen: Peripheral capsular calcification again demonstrated. Adrenals: Unremarkable Kidneys: Normal renal cortical enhancement. No calculi. No hydronephrosis. Bowel: Prior partial colectomy. Right anterior abdominal small bowel anastomosis. Cluster of mildly d ilated small bowel loops subjacent to the ventral hernia, similar in appearance to the prior study. M ild dilation of small bowel proximal to this cluster. The remainder of the small bowel is decompresse d. Urinary bladder: The urinary bladder is partially decompressed. 1 cm calcification again demonstrated at the posterior aspect of the urinary bladder. Focal soft tissue density at the inferior aspect of the urinary bladder measuring approximately 3 x 2.5 x 1.5 cm (series 501 image 75 series 503 image 73 ). Reproductive: There has been a hysterectomy. No adnexal cysts or masses are identified. Lymph nodes: No pathologically enlarged lymph nodes. Peritoneum: No focal fluid collection. No free air. Vessels: Minimal atherosclerotic disease. No abdominal aortic aneurysm. Abdominal wall: Postsurgical changes with incisional scarring, rectus muscle diastases and lobulated periincisional hernia containing small bowel loops. Bones: Multilevel spondylosis. No acute fracture. IMPRESSION: 1. Findings suggestive of partial small bowel obstruction with a transition in the region of a clust er of small bowel loops subjacent to the ventral abdominal wall. The configuration of the bowel is si milar to the prior study suggesting underlying adhesions. 2. Soft tissue density at the inferior aspect of the urinary bladder measuring approximately 3 x 2. 5 x 1.5 cm. Direct visualization may be necessary in order to exclude underlying mass/malignancy. 3. Other findings as above. Electronically signed by: Stephanie Sanchez MD 06/11/2019 10:12 PM CDT Due to temporary technical issues with the PACS/Fluency reporting system, reports are being signed by the in house radiologist as a courtesy to ensure prompt reporting. The interpreting radiologist is f ully responsible for the content of the report.
[2019-06-12] MEDS ORDERED: MINERAL OIL 30 ML UCUP PO ONE (10:34)
[2019-06-12] MEDS: NA CHLORIDE 0.9% 1,000 ML IV SCH ×2 (10:37→13:05)
--- NOTE | 2019-06-12 13:36 | P.CNS ---
Date of Consult: 06/12/19 PC: This 73-year-old female presents emergency room with severe abdominal pain for diagnosis and treatment. HPC: Patient has noticed over the last few days that she is having increasing abdominal pain and tenderness in a hernia that she has had issues with in the past. States that the hernia would not go back in anymore. Was having increasing pain and discomfort. PMH: Gastroesophageal reflux, asthma PSHx: Previous bowel resections, colostomy, ileostomy, reversal of these ostomies SOC: Allergic to morphine SYS REVIEW: No cough, wheeze, shortness of breath. Says she has actually been feeling pretty good at home. Had been gentle to have a console to in [place] in regards to were hernias. She had had an episode in February and follow-up appointments were made in [place]. Unfortunately, due to the epidemic she was unable to keep these appointments. O/E awake alert comfortable at the moment HEENT: Nasogastric tube in place, full canister beside the patient Vital signs are stable patient indicates she feels much better than she did last night. Chest: Chest movement equal bilaterally ABD: Abdomen is soft, hernias palpable but nontender at the moment. No overlying skin around this. LOCO: Intact DATA: White cell count 18,000 on admission, now of 12,[address] scan demonstrates a partial small-bowel obstruction at the level of the emboli kiss. Appears to be no evidence of any vascular compromise at the moment. IMPRESSION: Partial small-bowel obstruction PLAN: The patient has a nasogastric tube in place. We will continue aggressive conservative management. We will try some mineral oil via nasogastric tube. The patient has been asked to get up and ambulate. We will reassess her in the morning.
--- NOTE | 2019-06-12 18:20 | P.HP ---
Certification for Inpatient Patient admitted to: Inpatient With expected LOS: >2 Midnights Practitioner: I am a practitioner with admitting privileges, knowledge of patient current condition, hospital course, and medical plan of care. Services: Services provided to patient in accordance with Admission requirements found in Title 42 Section 412.3 of the Code of Federal Regulations Patient History Date of Service: 06/12/19 Reason for admission: ABDOMEN PAIN, NAUSEA, VOMITING FOR ONE WEEK. History of Present Illness: MS. CASTELLANOS IS A KNOWN PATIENT WITH BOWEL OBSTRUCTION, THAT HAPPENS RECURRENTLY. SHE AND FAMILY HAVE BEEN TO GI DOCTORS AND SURGEON IN [place] MANY TIMES. SHE WAS TO HAVE SURGERY SOON BUT WITH COVID-19 PANDEMIC SURGERY GOT DELAYED. SHE ENDS UP IN [facility] WITH ANOTHER EPISODE OF OBSTRUCTION. Allergies morphine Allergy (Verified 01/26/18 04:36) combative Home Medications: Fluticasone/Vilanterol [Breo Ellipta 200-25 Mcg INH] 1 puff IH DAILY 01/28/18 Omeprazole 1 tab PO DAILY WITH BREAKFAST 01/28/18 carvediloL [Carvedilol] 1 tab PO BID 01/28/18 Mirabegron [Myrbetriq] 1 tab PO DAILY 07/30/18 PARoxetine HCL [Paxil] 10 mg PO BEDTIME 07/30/18 Furosemide [Lasix] 20 mg PO DAILY #30 tab 05/10/19 Potassium Chloride 10 meq PO DAILY #30 tablet.er 05/10/19 - Past Medical/Surgical History Has patient received pneumonia vaccine in the past: No Diabetic: No -: HTN -: anxiety -: diverticulitis -: arthritis -: acid reflux -: urine incontinence -: rupture of large intestine -: bladder mesh -: hernia repair -: hysterectomy -: colostomy -: colostomy reversal - Family History Father -: Hypertension, Diabetes Mother -: Hypertension, Diabetes - Social History Smoking Status: Former smoker Alcohol use: Yes CD- Drugs: No Caffeine use: Yes Place of Residence: Home Review of Systems 10-point ROS is otherwise unremarkable General: Weakness, Malaise Gastrointestinal: Nausea, Vomiting, Abdominal Pain Physical Examination - Vital Signs Temperature: 98.2 F Blood Pressure: 125/66 Pulse: 104 Respirations: 18 Pulse Ox (%): 96 - Physical Exam General: Mild distress, Moderate distress HEENT: Atraumatic, PERRLA, Mucous membr. moist/pink, EOMI, Sclerae nonicteric Neck: Supple, 2+ carotid pulse no bruit, No LAD, Without JVD or thyroid abnormality Respiratory: Clear to auscultation bilaterally, Normal air movement Cardiovascular: Regular rate/rhythm, Normal S1 S2 Gastrointestinal: No ascites, Distended Musculoskeletal: No tenderness Integumentary: No rashes Neurological: Normal gait, Normal speech, Normal strength at 5/5 x4 extr, Normal tone, Normal affect Lymphatics: No axilla or inguinal lymphadenopathy - Studies Laboratory Data (last 24 hrs) 06/11/19 20:30: Creatinine 1.66 H 06/11/19 20:30: WBC 11.3 H, Hgb 13.4, Hct 41.9, Plt Count 229 06/11/19 20:30: Sodium 140, Potassium 4.6, BUN 24 H, Creatinine 1.64 H, Glucose 133 H, Total Bilirubin 0.6, AST 25, ALT 24, Alkaline Phosphatase 103, Lipase 130 Assessment and Plan - Problems (Diagnosis) (1) Abdominal pain Onset Date: 01/31/16 Current Visit: No Status: Acute Qualifiers: Abdominal location: generalized Qualified Code(s): R10.84 - Generalized abdominal pain (2) Bowel obstruction Current Visit: No Status: Chronic Plan: THERE IS VENTRAL HERNIA THAT WITH ADHESIONS IS CREATING BOWEL OBSTRUCTIONS. SHE HAS RECOVERED MANY TIMES WITH CONSERVATIVE THERAPY. SHE SHOULD AGAIN. SHE STILL NEEDS SURGERY. HER SURGEON IS IN [facility]. I CALLED KOMAL THE DAUGHTER AND WAS NOT ABLE TO LEAVE MESSAGE. Qualifiers: Intestinal obstruction type: obstruction due to adhesions - Advance Directives Does patient have a Living Will: No Does patient have a Durable POA for Healthcare: No
[2019-06-12] MEDS: IPRATROPIUM BROM 0.5MG/2.5ML NEB SCH (20:10)
[2019-06-12] MEDS: METOPROLOL TARTRATE 5 MG/5 ML INJ IV SCH (20:37)
[2019-06-12] MEDS: FAMOTIDINE 20 MG/2 ML VIAL IV SCH (20:38)
[2019-06-13] MEDS: METOPROLOL TARTRATE 5 MG/5 ML INJ IV SCH ×4 (01:08→19:59)
[2019-06-13] MEDS: NA CHLORIDE 0.9% 1,000 ML IV SCH ×2 (01:08→14:37)
[2019-06-13] MEDS: FENTANYL CITR 100 MCG/2 ML IV PRN ×3 (01:14→11:29)
[2019-06-13] MEDS: IPRATROPIUM BROM 0.5MG/2.5ML NEB SCH ×4 (01:55→19:30)
[2019-06-13 08:01] LABS: MPV 7.2 fL (7.6-11.3)
[2019-06-13] MEDS: FAMOTIDINE 20 MG/2 ML VIAL IV SCH ×2 (08:34→20:38)
[2019-06-13] MEDS: ENOXAPARIN 30 MG/0.3 ML SQ SCH (08:34)
[2019-06-13 09:27] LABS: Platelet Estimate ADEQ
--- NOTE | 2019-06-13 11:02 | RAD REPORT ---
EXAM DESCRIPTION: RAD - Abdomen W Erect - 06/13/2019 10:39 am CLINICAL HISTORY: Abdomen pain. FINDINGS: A nasogastric tube has its tip within the distal stomach. Free air is not seen beneath the diaphragm Several loops of dilated small bowel are present within the central abdomen. The remainder of the bow el gas pattern is diminished. This likely indicates a mechanical obstruction without obvious change f rom June 10
[2019-06-13] MEDS ORDERED: MINERAL OIL 30 ML UCUP PO ONE (11:27)
--- NOTE | 2019-06-13 12:13 | P.PN ---
Date of Service: 06/13/19 S: Patient is a main pain is in her right here. CC is the NG tube is bothering her considerably. Her abdominal pain is virtually gone, she says her hernia is back inside, and she is had for 5 bowel movements today. O: Abdomen is soft, no guarding or rebound. Minimal out through NG tube A: Despite plain film findings today, patient seems much improved clinically. P: No will via nasogastric tube in Dc NG tube. Clear liquids. Ambulate patient. Repeat CC in a.m.. May be discharged soon.
--- NOTE | 2019-06-13 21:41 | PN ---
Ms. Pike is doing really good. Has had good BM for the last 24 hours. Denies any chest pain, kesha sea, or vomiting. We are advancing her diet to full liquid and possibly discharge tomorrow depending on her tolerance. She does have need of surgery, but the family wants surgery in [place]. I am not sure if [facility] doctors are able to do anything right now for a few months, but the plan has b een going on for the last couple of years and the family does not seem to have time to follow up with doctors as they all have to work. She was sick this time for a week before they could bring her to hospital. Her prognosis remains guarded. She is stable currently. SONAM/MODL Voice ID: [id number] Report ID: [id number]
[2019-06-13 21:42] VITALS: O2SAT 97
--- NOTE | 2019-06-13 21:50 | PN ---
Addendum: Filling defect in the bladder, which needs to be taken care by urologist on outpatient bas is. I tried to call patient's daughter couple of times, but she is not available for discussion, but ye turner has been notified about this. SONAM/JEISON Voice ID: [id number] Report ID: [id number]
[2019-06-14] MEDS: METOPROLOL TARTRATE 5 MG/5 ML INJ IV SCH ×3 (01:00→12:28)
[2019-06-14] MEDS: IPRATROPIUM BROM 0.5MG/2.5ML NEB SCH ×3 (01:45→13:29)
[2019-06-14 06:33] VITALS: TEMP 97
[2019-06-14 06:43] LABS: Absolute Lymphocytes (CBC) 2.1 K/uL (0.7-4.9); Basophils % 0.2 % (0-1.3); Hematocrit 36.2 % (36.0-45.0); Lymphocytes % 30.7 % (15.3-44.8); MPV 7.1 fL (7.6-11.3)
[2019-06-14] MEDS: FAMOTIDINE 20 MG/2 ML VIAL IV SCH (09:06)
[2019-06-14] MEDS: ENOXAPARIN 30 MG/0.3 ML SQ SCH (09:06)
[2019-06-14] MEDS: NA CHLORIDE 0.9% 1,000 ML IV SCH (09:07)
--- NOTE | 2019-06-14 09:48 | RAD REPORT ---
EXAM DESCRIPTION: RAD - Abdomen 1 View (KUB) - 06/14/2019 8:45 am CLINICAL HISTORY: Abdomen pain. FINDINGS: Nasogastric tube is not visualized. Dilated loops of small bowel persist within the central abdomen consistent with obstruction. Main the bowel gas pattern is diminished
[2019-06-14] MEDS ORDERED: MINERAL OIL 30 ML UCUP PO ONE (12:00)
[2019-06-14 12:52] VITALS: BP 143/65
== END 2019-06-14 13:34 | disposition home or self-care (01) | DRG 389 ==
LOC: ER 19:29 → ERHOLD 06-12 00:15 → 2ND 06-12 01:11
PROVIDERS: ADMIT Internal Medicine; ATTEND Internal Medicine
DX: K56.51 Intestinal adhesions [bands], with partial obstruction (principal); K43.6 Other and unspecified ventral hernia with obstruction, without gangrene; I10 Essential (primary) hypertension; K21.9 Gastro-esophageal reflux disease without esophagitis; Z88.5 Allergy status to narcotic agent; Z79.899 Other long term (current) drug therapy; Z90.710 Acquired absence of both cervix and uterus; Z87.891 Personal history of nicotine dependence; Z90.49 Acquired absence of other specified parts of digestive tract
CPT/HCPCS: 36415; 74018; 74019; 74177; 80048; 80076; 81003; 81015; 83690; 85025; 85049; 87077; 87086; 87088; 87186; 94640; 96361; 96374; 96375; 99285; C9113; J1650; J2175; J2405; J2550; J3010; J7030; J7040; Q9967